=== PATIENT | female | born 1960 | race Caucasian/White ===

== ENCOUNTER 2021-03-01 00:35 | Inpatient (IN) | payer MEDICARE, SELFPAY ==
[2021-03-01] VITALS (50 sets, daily range): BP systolic 116–195; BP diastolic 64–122; PULSE 64–120; RESP 14–45; TEMP 35.6–38.2; O2SAT 80–100; BMI 33.1
--- NOTE | 2021-03-01 00:43 | PCM.HP.STD ---
HPI - General General Date of Admission: 02/28/21 HPI Narrative JOSE PANDYA, is a 60 F with a significant for diabetes mellitus who presents urgency department with a 2-week history of progressively worsening weakness. States that her symptoms is dry mouth; dry cough; and postnasal drip. Shortness of breath. She denies muscle aches. She denies fever or chills. She tested positive at [facility] ED. She was placed on nonrebreather mask at this [facility] and then transitioned to Vapoterm. At the time of history taking patient was initially on a nonrebreather mask and often difficult to answer question because reportedly she had a dry mouth. She was eventually placed on BiPAP. [facility] Medical History (Updated 03/01/21 @ 01:33 by Andrew Tinsley, RN) Anxiety Arthritis Depression Diabetes Fibromyalgia Head ache Head trauma Hypertension Kidney stones Ovarian cancer Rupture of colon Home Medications Acidophilus 1 tablet PO/SL QPM 03/01/21 [History Last Taken Unknown] Lantus U-100 Insulin 40 units OTHER QHS 03/01/21 [History Last Taken Unknown] Novolog Flexpen U-100 Insulin 40 units OTHER TID 03/01/21 [History Last Taken Unknown] [place] 3 Fish Oil 300 mg PO.IVFORM DAILY 03/01/21 [History Last Taken Unknown] lisinopril 20 mg PO/SL 03/01/21 [History Last Taken Unknown] meloxicam 7.5 mg PO/SL DAILY 03/01/21 [History Last Taken Unknown] Allergy/AdvReac Type Severity Reaction Status Date / Time fexofenadine AdvReac Vomiting Verified 03/01/21 01:12 loratadine AdvReac Rash Verified 03/01/21 01:12 prednisone AdvReac PT UNABLE Verified 03/01/21 01:12 TO RESPOND-NEEDS F/U Sulfa (Sulfonamide AdvReac NEEDS Verified 03/01/21 01:12 Antibiotics) FOLLOW-UP Family History (Updated 03/01/21 @ 00:[address] Cesar Kang MD) Other Aneurysm Kidney disease Surgical History (Updated 03/01/21 @ 01:33 by Andrew Tinsley, MINDY) H/O oophorectomy H/O oophorectomy Hx of tonsillectomy Previous back surgery Social History (Updated 03/01/21 @ 00:[address] Cesar Kang MD) Smoking Status: Never smoker ROS ROS Narrative Pertinent positives and pertinent negatives as noted in HPI. All other systems were reviewed and are negative. Vital Signs Vital Signs Vital Signs: 03/01/21 00:14 03/01/21 00:36 Temperature 99.6 F H Temperature Source Temporal Pulse Rate 110 H Respiratory Rate 26 H Respiratory Effort Short of Breath Respiratory Depth Normal Respiratory Pattern Tachypnea Blood Pressure 179/90 H Blood Pressure Mean 119 Blood Pressure Source Monitor Blood Pressure Position Semi-Fowlers Blood Pressure Location Right Forearm Pulse Ox 80 100 Oxygen Delivery Method Non-Rebreather Bi-pap Fraction of Inspired Oxygen (FIO2) 100 100 Weight Weight: 93.1 kg Body Mass Index (BMI) 33.1 Physical Exam Narrative Physical exam: General: Well-nourished, well-developed. Head: Normocephalic, atraumatic, no tenderness Eyes: PERRLA, EOMI ENT, no trauma, moist mucous membranes, no rhinorrhea Neck: Nontender, full range of motion, no spinal tenderness, deformities, step-off CVS: Tachycardia. S1-S2 present. No murmur, gallop or rub. Respiratory : Tachypnea; using accessory muscles of respiration. Bilateral rales . no wheezing Abdomen: Soft, nontender, nondistended, normal bowel sounds, no masses : Deferred Back: Nontender, no CVA tenderness, no midline spinal tenderness, deformities, step-offs Extremities: Nontender full range of motion, no trauma Skin: Normal color, no trauma, abrasions Neuro: Alert, oriented, cranial nerves II through XII grossly intact. Psychiatry: Anxious. Assessment & Plan Assessment/Plan (1) SARS (severe acute respiratory syndrome): (2) Respiratory failure: QUALIFIERS: Chronicity: acute Respiratory failure complication: hypoxia Qualified Code(s): J96.01 - Acute respiratory failure with hypoxia PLAN: Acute hypoxemic respiratory failure secondary to SARS- COV 2 Initial oxygen saturation on presentation was in the 60s. Transitioned from nonrebreather mask to BiPAP on presentation. Check blood gas. Impression of chest x-ray by radiologist at [facility]: Left greater than right parenchymal infiltrates concerning for multifocal pneumonia or asymmetric edema. Review of records show that SARS antigen Covid was positive at [facility]. Review of labs at outside hospital showed ALT 35 (normal 13-66); and AST 63 (normal 3-39). Troponin was negative x2. Received cefepime and azithromycin at outside hospital ED and this will be continued. Received Decadron at outside hospital ED initially continued. Outside window of remdesivir since symptoms is more than 10 days. Tylenol for fever Mucinex ordered Admit intensive care unit. 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 Placed on enhanced droplet isolation precaution. Diabetes mellitus Review of chart patient with hyperglycemia at outside hospital Adjust basal insulin. We will keep patient n.p.o. for now since patient is on BiPAP. Hold prandial insulin. Accu-Chek with correction scale insulin ordered. Accu-Chek QA [facility] with correction scale insulin ordered. DVT prophylaxis Subcutaneous Lovenox 30 mg twice daily. . Charges/Coding Visit Charges Inpatient E&M: 37644 Init Hosp L3
[2021-03-01 00:56] LABS: Allen Test Positive; Base Excess -2 mmol/L (-2 to +2); Bicarbonate 23.2 mmol/L (22-26); Blood Gas Specimen Type ART; FI02 100; O2 Delivery Device BiPAP; PEEP 10; PO2 133 mmHG (75-100); RR 14; SITE L Radial; SO2 99 % (95-99); Total Carbon Dioxide 24 mmol/L; Vt 450; pCO2 39.8 mmHg (35-45); pH 7.37 (7.35-7.45)
[2021-03-01] MEDS: LORazepam 2 MG/ML Syringe 1 MG IV ×2 (01:10→06:47)
[2021-03-01 03:28] LABS: Procalcitonin 0.57 ng/mL (0.00-0.09)
[2021-03-01] MEDS: Insulin Lispro 100 UNIT/ML INSULN.PEN SC ×4 (03:59→21:19)
[2021-03-01 04:12] LABS: Bedside Glucose 151 mg/dL (70-110)
[2021-03-01 04:13] LABS: Absolute Lymphocyte Count 0.81 X10^3/uL (0.83-4.51); Absolute Neutrophil Count 9.1 X10^3/uL (2.0-7.7); Basophil# 0.03 X10^3/uL; Basophil% 0.3 % (0-1); Hematocrit 37.9 % (37-47); Hemoglobin 12.5 g/dL (12.0-15.0); Lymphocyte # 0.81 X10^3/ul (0.83-4.51); Lymphocyte % 7.6 % (19-41); Mean Corpuscular Hgb 29.9 pg (27.0-32.0); Mean Corpuscular Volume 90.7 fL (81-99); Mean Platelet Vol. 8.9 fl (6.2-12.0); Monocyte# 0.55 X10^3/uL; Monocyte% 5.1 % (0-10); NRBC Flagged by Analyzer 0 % (0-5); Neutrophil # 9.12 X10^3/uL (2.7-7.7); Neutrophil % 85.1 % (47-70); Platelet Count 251 K/mm3 (150-450); RBC Distribution Width CV 13.5 % (11.6-14.6); RBC Distribution Width SD 45.2 fl (35.1-43.9); Red Blood Count 4.18 M/mm3 (4.2-5.4); White Blood Count 10.7 K/mm3 (4.4-11.0)
[2021-03-01 04:37] LABS: ALB/GLOB Ratio 0.4 RATIO (0.9-2.4); AST(SGOT) 48 U/L (15-37); Alanine Aminotransfer ALT/SGPT 30 U/L (13-56); Albumin, Serum 1.8 g/dL (3.2-5.0); Alkaline Phosphatase 201 U/L (45-117); Anion Gap 10 (5-15); BUN 13 mg/dL (7-18); BUN/Creat Ratio 23.7 RATIO (10-20); Calcium,Total 8.2 mg/dL (8.5-10.1); Chloride 100 mmol/L (98-107); Creatinine, Serum 0.55 mg/dL (0.55-1.02); EST Glomerular Filtration Rate 119 mL/min (>60); Est Glom Filt Rate - Afr Amer 144 mL/min (>60); Estimated Creatinine Clearance 100.56 ml/min; Globulin 4.3 g/dL (2.2-4.2); Glucose 230 mg/dL (74-106); Potassium 4.1 mmol/L (3.5-5.1); Protein, Total 6.1 g/dL (6.4-8.2); Sodium Level 135 mmol/L (136-145)
[2021-03-01] MEDS: hydrALAZINE 20 MG/ML Vial 10 MG IV (06:47)
--- NOTE | 2021-03-01 08:03 | CON.PCM.CC_ITS ---
Assessment & Plan Assessment/Plan (1) SARS (severe acute respiratory syndrome): (2) Respiratory failure: QUALIFIERS: Chronicity: acute Respiratory failure complication: hypoxia Qualified Code(s): J96.01 - Acute respiratory failure with hypoxia (3) COVID-19: (4) Diabetes: QUALIFIERS: Diabetes mellitus type: type 2 Diabetes mellitus chcf insulin use: with intermediate designer use Diabetes mellitus complication status: wi th circulatory complication Diabetes mellitus complication detail: with other circulatory complications Qualified Code(s): E11.59 - Type 2 diabetes mellitus with other circulatory complications; 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 Add Precedex drip 2. Continue BiPAP. Wean oxygen as tolerated 3. Monitor for hyperglycemia. Add basal insulin pending trend 4. No Remdesivir given delayed presentation 5. Potential antihypertensives if not improved with Precedex IMPRESSIONS: 1. Acute hypoxic respiratory failure secondary to COVID-19 Unvaccinated. Patient does not appear to be coherent enough to make CODE STATUS decisions. Patient will be a full code by default. Patient has been removing her BiPAP mask. Patient will be placed on a Precedex drip. Cannot exclude the need for intubation moving forward. Patient has delayed onsets, so remdesivir will not be ordered. Patient will be placed on Decadron and this may cause issues with blood sugars. Patient currently n.p.o., so we will hold on scheduled insulin until trend can be determined. Patient is on a mucolytic. 2. Diabetes mellitus Patient was significant requirements at baseline. Anticipate worsening blood sugars given need for Decadron therapy. We will continue to follow and adjust as necessary. 3. Anxiety/hypertension/obesity/poor insight Complicates care, management, recovery and prognosis. Will initiate a Precedex drip in an effort to help with anxiety. This may help with current hypertension. Cannot exclude the need for intubation if anxiety precludes use of BiPAP rescue. TIME: 33 minutes of critical care time spent addressing acute hypoxic respiratory failure, diabetes mellitus, anxiety, review of all data and collaboration with care team (7:15 AM to 8:15 AM) HPI Consult Data Date of Consult: 03/01/21 HPI Narrative HPI Narrative: JOSE PANDYA is a 60 F, with reported past medical history listed below, who presents to [facility] on 03/01/2021 from an outside facility secondary to 2 weeks of progressive weakness, dry mouth, dry cough and postnasal drip. Patient reportedly did not have any fevers, chills or muscle aches. Patient had presented to [facility] ED hypoxic and was placed on a nonrebreather. Patient was then transitioned to Vapotherm. On arrival to [facility], patient was eventually placed on BiPAP therapy. Patient has very poor insight into her or her overall condition and history is limited. Patient does state that she was not vaccinated. Patient is unclear on her onset. Overnight, patient has had significant hypertension that appears to be associated with anxiety. Patient has pulled her mask off several times leading to desaturation into the 40s. Patient is not reporting any previous respiratory issues. Patient does have diabetes and is treated with insulin therapy. Patient also has chronic pain issues. Unable to obtain a full review of systems secondary to significant anxiety. Patient is reportedly a full code, but is not answering any questions for me at this time secondary to concerns with BiPAP therapy. [facility] Medical History (Updated 03/01/21 @ 08:[address] Yash Marie MD) Anxiety Arthritis Depression Diabetes Fibromyalgia Head ache Head trauma Hypertension Kidney stones Ovarian cancer Rupture of colon Home Medications Acidophilus 1 tablet PO/SL QPM 03/01/21 [History Last Taken Unknown] Lantus U-100 Insulin 40 units OTHER QHS 03/01/21 [History Last Taken Unknown] Novolog Flexpen U-100 Insulin 40 units OTHER TID 03/01/21 [History Last Taken U nknown] [place] 3 Fish Oil 300 mg PO.IVFORM DAILY 03/01/21 [History Last Taken Unknown] lisinopril 40 mg PO DAILY 03/01/21 [History Last Taken Unknown] meloxicam 7.5 mg PO/SL DAILY 03/01/21 [History Last Taken Unknown] Allergy/AdvReac Type Severity Reaction Status Date / Time fexofenadine AdvReac Vomiting Verified 03/01/21 01:12 loratadine AdvReac Rash Verified 03/01/21 01:12 prednisone AdvReac PT UNABLE Verified 03/01/21 01:12 TO RESPOND-NEEDS F/U Sulfa (Sulfonamide AdvReac NEEDS Verified 03/01/21 01:12 Antibiotics) FOLLOW-UP Family History Other Aneurysm Kidney disease Surgical History H/O oophorectomy H/O oophorectomy Hx of tonsillectomy Previous back surgery Social History Smoking Status: Never smoker ROS Review of Systems ROS Unobtainable: due to mental status Physical Exam Const alert General Appearance: cooperative, well developed, anxious and uncooperative Nutritional Appearance: obese HEENT normocephalic, head/scalp atraumatic and moist oral mucous membranes HEENT Narrative: Scleral injection noted Eyes PERRL and EOMs intact bilaterally Neck full ROM and no lymphadenopathy Chest inspection of chest normal Chest: symmetrical chest wall rise; Negative for crepitus Resp Effort and Inspection: actively coughing and prolonged expiratory phase Auscultation: diminished lung sounds; Negative for rales, rhonchi or wheezes Percussion: Negative for dullness Cardio regular rhythm, S1 normal heart sound, S2 normal heart sound, no murmurs, no rub and no gallops GI normal to inspection, nondistended, normoactive bowel sounds no CVA tenderness Extremity no clubbing, cyanosis or edema Skin no rashes or lesions noted Neuro oriented x3, CN's II-XII intact bilaterally, moves all extremities and no focal motor deficits Psych Attitude: paranoid and evasive Speech: pressured Mood & Affect: anxious Thought Process: disorganized Thought Content: No suicidality Attention / Concentration: concentration grossly impaired Lab / Micro Data Result Diagrams: 03/01/21 03:55 03/01/21 03:55 Labs: Laboratory Results - last 24 hr 03/01/21 02:30: Procalcitonin 0.57 H 03/01/21 03:42: POC Glucose 151 H 03/01/21 03:55: WBC 10.7, RBC 4.18 L, Hgb 12.5, Hct 37.9, MCV 90.7, MCH 29.9, MCHC 33.0, RDW Std Deviation 45.2 H, RDW Coeff of Curt 13.5, Plt Count 251, MPV 8.9, Immature Gran % (Auto) 1.900 H, Neut % (Auto) 85.1 H, Lymph % (Auto) 7.6 L, [place] % (Auto) 5.1, Eos % (Auto) 0.0, Baso % (Auto) 0.3, Absolute Neuts (auto) 9.1 H, Absolute Lymphs (auto) 0.81 L, Nucleated RBC % 0 03/01/21 03:55: Sodium 135 L, Potassium 4.1, Chloride 100, Carbon Dioxide 25.0, Anion Gap 10, BUN 13, Creatinine 0.55, Estim Creat Clear Calc 100.56, Est GFR (MDRD) Af Amer 144, Est GFR (MDRD) Non-Af 119, BUN/Creatinine Ratio 23.7 H, Glucose 230 H, Calcium 8.2 L, Total Bilirubin 0.70, AST 48 H, ALT 30, Alkaline Phosphatase 201 H, Total Protein 6.1 L, Albumin 1.8 L, Globulin 4.3 H, Albumin/Globulin Ratio 0.4 L Micro: Microbiology 03/01/21 03:50 Urine, Clean Catch Streptococcus pneumoniae Antigen (M - Final 03/01/21 03:50 Urine, Clean Catch Legionella Antigen - Final ABG Data ABG results: ABG 03/01/21 00:50 Specimen Type ART Sample Site L Radial pH 7.37 Bicarbonate Actual 23.2 Total CO2 24 Base Excess -2 O2 Saturation 99 O2 % 100 ABG pCO2 39.8 ABG pO2 133 H Damion Test Positive Respiration Rate 14 O2 Delivery Device BiPAP Tidal Volume 450 POC PEEP 10 Capacity Capacity Assessment Tool Can the patient make a choice & communicate that choice?: No Can the patient understand benefits, risks and alternatives?: No Can the patient make a logical, rational choice?: No Is the choice the patient makes consistent w/ their values?: Unable to Determine (Cannot determine baseline values at this time) Is there an impending, emergent risk to the patient?: Yes Does the patient have an Advance Directive?: No Is there a Surrogate Available?: No i.e. HCPOA: No i.e. close relative (spouse, child, parent, sibling)?: Unable to Determine Charges/Coding Procedures Hospitalists Procedures: [facility]
--- NOTE | 2021-03-01 08:14 | PCS.PANDOC ---
PANDEMIC DOCUMENTATION INITIATED: Date: 02/08/2021 Time: 190
[2021-03-01] MEDS: Meloxicam 7.5 MG Tablet PO (09:44)
[2021-03-01] MEDS: guaiFENesin 1,200 MG Tablet 1200 MG PO (09:44)
[2021-03-01] MEDS: dexAMETHasone 10 MG/ML Vial 6 MG IV (09:49)
[2021-03-01] MEDS: Enoxaparin 30 MG/0.3 ML Syringe SC ×2 (09:51→21:19)
[2021-03-01 10:01] LABS: Bedside Glucose 196 mg/dL (70-110)
--- NOTE | 2021-03-01 11:57 | PN.HOSP_ITS ---
Subjective Subjective Patient was in generally morning today. Very short of breath, trying to remove BiPAP mask and gets very hypoxic. On Precedex drip. Maintaining her blood pressure. Objective Data Objective Data Vital Signs: Vital Signs Temp Pulse Resp BP Pulse Ox 100.1 F H 81 41 H 118/66 90 03/01/21 10:00 03/01/21 11:49 03/01/21 11:06 03/01/21 11:00 03/01/21 11:06 Oxygen Delivery Method Bi-pap Weight: 205 lb 4.006 oz Body Mass Index (BMI) 33.1 Intake & Output: Intake and Output for Last 24 Hours 02/27/21 02/28/21 03/01/21 23:59 23:59 23:59 Intake Total 482.84 / 482.84 Output Total 50 / 50 Balance 432.84 / 432.84 Lab / Micro Data Result Diagrams: 03/01/21 03:55 03/01/21 03:55 Labs: Laboratory Results - last 24 hr 03/01/21 02:30: Procalcitonin 0.57 H 03/01/21 03:42: POC Glucose 151 H 03/01/21 03:55: WBC 10.7, RBC 4.18 L, Hgb 12.5, Hct 37.9, MCV 90.7, MCH 29.9, MCHC 33.0, RDW Std Deviation 45.2 H, RDW Coeff of Curt 13.5, Plt Count 251, MPV 8.9, Immature Gran % (Auto) 1.900 H, Neut % (Auto) 85.1 H, Lymph % (Auto) 7.6 L, [place] % (Auto) 5.1, Eos % (Auto) 0.0, Baso % (Auto) 0.3, Absolute Neuts (auto) 9.1 H, Absolute Lymphs (auto) 0.81 L, Nucleated RBC % 0 03/01/21 03:55: Sodium 135 L, Potassium 4.1, Chloride 100, Carbon Dioxide 25.0, Anion Gap 10, BUN 13, Creatinine 0.55, Estim Creat Clear Calc 100.56, Est GFR (MDRD) Af Amer 144, Est GFR (MDRD) Non-Af 119, BUN/Creatinine Ratio 23.7 H, G lucose 230 H, Calcium 8.2 L, Total Bilirubin 0.70, AST 48 H, ALT 30, Alkaline Phosphatase 201 H, Total Protein 6.1 L, Albumin 1.8 L, Globulin 4.3 H, Albumin/Globulin Ratio 0.4 L 03/01/21 09:44: POC Glucose 196 H Micro: Microbiology 03/01/21 03:50 Urine, Clean Catch Streptococcus pneumoniae Antigen (M - Final 03/01/21 03:50 Urine, Clean Catch Legionella Antigen - Final ABG Data ABG results: ABG 03/01/21 00:50 Specimen Type ART Sample Site L Radial pH 7.37 Bicarbonate Actual 23.2 Total CO2 24 Base Excess -2 O2 Saturation 99 O2 % 100 ABG pCO2 39.8 ABG pO2 133 H [place]ion Test Positive Respiration Rate 14 O2 Delivery Device BiPAP Tidal Volume 450 POC PEEP 10 Physical Exam Narrative Fever 100.1 Fahrenheit General: , On BiPAP. HEENT: Atraumatic, PERRLA, EOMI, Normocephalic Oral: No Gingival or Mucosal Lesions/ Ulcerations Neck: Supple, No JVD, Negative Carotid Bruits Lungs: Air entry diminished in bilateral lung bases. Tachypneic and severely hypoxic. Bilateral coarse crepitation Cardiovascular: Sinus tachycardia, Normal S1, Normal S2, No murmurs Abdomen: Bowel Sounds Present, Soft, Non Tender, Non-Distended : No renal angle tenderness. No suprapubic tenderness. Extremities: No edema, Capillary Refill Less than 3 Seconds Skin: No rashes, No breakdown Musculoskeletal: No Tenderness to Palpation of Joints or Extremities Neurological: Cranial nerves II-XII grossly intact, DTR 2+/4 and Symmetrical, Neuro grossly intact Psych/Mental Status: Lethargic. Assessment & Plan Assessment/Plan (1) Respiratory failure: QUALIFIERS: Chronicity: acute Respiratory failure complication: hypoxia Qualified Code(s): J96.01 - Acute respiratory failure with hypoxia (2) COVID-19: PLAN: This 60-year-old female with multiple comorbidities admitted with 2- week history of progressive worsening of weakness, shortness of breath, dry cough, postnasal drip. She was found severely hypoxic and tachypneic, in acute hypoxic respiratory failure and was directly admitted from [facility] nonrebreather mask 1. Acute hypoxemic respiratory failure secondary to bilateral COVID-19 pneumonia: The patient is unvaccinated. Patient is admitted in ICU. 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 Currently on BiPAP. On Precedex drip as patient was trying to remove BiPAP mask. On Decadron. Not candidate for remdesivir as out of window. Supportive treatment with mucolytic, Pep and bronchodilator. ID consult tomorrow. 2. Bilateral COVID-19 pneumonia: As mentioned above 3. Diabetes mellitus: Accu-Cheks insulin coverage block sliding scale. On basal insulin. 4. DVT prophylaxis Subcutaneous Lovenox 30 mg twice daily.
[2021-03-01 15:51] LABS: Bedside Glucose 261 mg/dL (70-110)
[2021-03-01] MEDS: 0.9% Saline Lock 10 ML Syringe IV (16:05)
--- NOTE | 2021-03-01 20:34 | NURSING ---
Fio2 increased to 55% due to apo2 of 86%
[2021-03-01 21:41] LABS: Bedside Glucose 265 mg/dL (70-110)
[2021-03-02] VITALS (39 sets, daily range): BP systolic 118–179; BP diastolic 55–94; PULSE 59–105; RESP 14–38; TEMP 35.8–36.8; O2SAT 76–98
[2021-03-02] MEDS: Insulin Lispro 100 UNIT/ML INSULN.PEN SC ×4 (03:59→23:21)
[2021-03-02 04:16] LABS: Bedside Glucose 286 mg/dL (70-110)
[2021-03-02 04:23] LABS: Absolute Lymphocyte Count 0.92 X10^3/uL (0.83-4.51); Absolute Neutrophil Count 10.4 X10^3/uL (2.0-7.7); Basophil# 0.04 X10^3/uL; Basophil% 0.3 % (0-1); Hematocrit 39.6 % (37-47); Hemoglobin 13.2 g/dL (12.0-15.0); Lymphocyte # 0.92 X10^3/ul (0.83-4.51); Lymphocyte % 7.6 % (19-41); Mean Corp Hgb Conc 33.3 g/dL (32-36); Mean Corpuscular Hgb 29.8 pg (27.0-32.0); Mean Corpuscular Volume 89.4 fL (81-99); Mean Platelet Vol. 9.2 fl (6.2-12.0); Monocyte# 0.56 X10^3/uL; Monocyte% 4.7 % (0-10); NRBC Flagged by Analyzer 0 % (0-5); Neutrophil # 10.36 X10^3/uL (2.7-7.7); Neutrophil % 86.1 % (47-70); Platelet Count 221 K/mm3 (150-450); RBC Distribution Width CV 13.8 % (11.6-14.6); RBC Distribution Width SD 45.1 fl (35.1-43.9); Red Blood Count 4.43 M/mm3 (4.2-5.4)
[2021-03-02 04:33] LABS: Anion Gap 8 (5-15); BUN 23 mg/dL (7-18); BUN/Creat Ratio 42.9 RATIO (10-20); Calcium,Total 8.8 mg/dL (8.5-10.1); Chloride 106 mmol/L (98-107); Creatinine, Serum 0.54 mg/dL (0.55-1.02); EST Glomerular Filtration Rate 123 mL/min (>60); Est Glom Filt Rate - Afr Amer 148 mL/min (>60); Estimated Creatinine Clearance 102.42 ml/min; Glucose 283 mg/dL (74-106); Magnesium 2.4 mg/dL (1.6-2.6); Phosphorus 2.9 mg/dL (2.5-4.9); Potassium 4.6 mmol/L (3.5-5.1); Sodium Level 138 mmol/L (136-145)
--- NOTE | 2021-03-02 06:45 | PN.CC_ITS ---
Assessment & Plan Assessment/Plan (1) COVID-19: PLAN: RECOMMENDATIONS: 1. Continue BiPAP support and wean FiO2 to maintain saturations at or above 90%. 2. Continue Decadron to complete 10-day treatment course. 3. Continue Lovenox twice daily. 4. Antibiotics can likely be discontinued in the next 24 hours. 5. Recommend use of periodic diuretic therapy to maintain euvolemic state, as t olerated by hemodynamics and renal function. IMPRESSIONS: 1. Acute hypoxemic respiratory failure secondary to COVID-19 pneumonia The patient has an unvaccinated status. Given her delayed presentation, she was not felt to be a candidate for remdesivir. Plan to continue current supportive measures including noninvasive positive pressure ventilatory support. Wean FiO2 as tolerated to maintain saturations at or above 90%. Precedex infusion will be continued to facilitate adherence with BiPAP support. The patient is to remain n.p.o. for now. Plan to continue Decadron to complete 10-day treatment course. Antibiotics can likely be discontinued in the next 24 hours. Continue Lovenox twice daily as ordered. Recommend periodic use of IV Lasix to maintain euvolemic state as tolerated by hemodynamics and renal function. 2. Diabetes mellitus Continue Lantus and sliding scale insulin coverage. 3. Anxiety/hypertension/obesity Complicates care, management, recovery and prognosis. Continue supportive measures as noted above. TIME: 33 minutes of critical care time, independent of procedures, was spent addressing the patient's acute hypoxemic respiratory failure secondary to COVID- 19 pneumonia, review of all data and collaboration with the care team. ([id number]) Subjective Subjective The patient was seen and examined at the bedside this morning. Events from the last 24 hours have been reviewed. The patient is currently afebrile, hemodynamically stable and maintaining appropriate oxygen saturations on AVAPS with an FiO2 requirement of 65%. The patient remains on low-dose Precedex at 0.3 to maintain compliance with the use of noninvasive positive pressure ventilatory support. She is currently documented to be overall net +1 L for the hospital admission. The patient remains on antimicrobials, Decadron and twice daily Lovenox. The patient has been on continuous noninvasive positive pressure ventilatory support following her admission to the hospital. She did not receive remdesivir given her delayed presentation. Objective Data Objective Data The patient's most recent lab work, culture data and imaging studies have all been personally reviewed. Strep and urine Legionella antigens were negative. Vital Signs: Vital Signs Temp Pulse Resp BP Pulse Ox 96.7 F L 74 22 H 163/87 H 93 03/02/21 04:00 03/02/21 06:00 03/02/21 06:00 03/02/21 06:00 03/02/21 05:00 Oxygen Delivery Method Bi-pap Weight: 92.6 kg Body Mass Index (BMI) 33.1 Intake & Output: Intake and Output for Last 24 Hours 02/28/21 03/01/21 03/02/21 23:59 23:59 23:59 Intake Total 1012.32 / 1019.32 243.00 / 243.00 Output Total 200 / 200 Balance 812.32 / 819.32 243.00 / 243.00 Lab / Micro Data Attestation: I reviewed the patient's lab results. Result Diagrams: 03/03/21 04:00 03/03/21 05:00 Labs: Laboratory Results - last 24 hr 03/01/21 09:44: POC Glucose 196 H 03/01/21 15:43: POC Glucose 261 H 03/01/21 21:17: POC Glucose 265 H 03/02/21 03:45: POC Glucose 286 H 03/02/21 04:10: WBC 12.0 H, RBC 4.43, Hgb 13.2, Hct 39.6, MCV 89.4, MCH 29.8, MCHC 33.3, RDW Std Deviation 45.1 H, RDW Coeff of Curt 13.8, Plt Count 221, MPV 9.2, Immature Gran % (Auto) 1.300 H, Neut % (Auto) 86.1 H, Lymph % (Auto) 7.6 L, [place] % (Auto) 4.7, Eos % (Auto) 0.0, Baso % (Auto) 0.3, Absolute Neuts (auto) 10.4 H, Absolute Lymphs (auto) 0.92, Nucleated RBC % 0 03/02/21 04:10: Sodium 138, Potassium 4.6, Chloride 106, Carbon Dioxide 24.0, Anion Gap 8, BUN 23 H, Creatinine 0.54 L, Estim Creat Clear Calc 102.42, Est GFR (MDRD) Af Amer 148, Est GFR (MDRD) Non-Af 123, BUN/Creatinine Ratio 42.9 H, Glucose 283 H, Calcium 8.8, Phosphorus 2.9, Magnesium 2.4 Micro: Microbiology 03/01/21 03:50 Urine, Clean Catch Streptococcus pneumoniae Antigen (M - Final 03/01/21 03:50 Urine, Clean Catch Legionella Antigen - Final Physical Exam Const alert General Appearance: cooperative, comfortable and on BiPAP Nutritional Appearance: obese HEENT normocephalic and head/scalp atraumatic Eyes PERRL, EOMs intact bilaterally and conjunctivae normal Neck supple General: trachea midline Chest inspection of chest normal Resp Effort and Inspection: tachypneic Auscultation: diminished lung sounds; Negative for rales, rhonchi or wheezes Cardio regular rate and regular rhythm GI normal to inspection, nondistended, normoactive bowel sounds Extremity no clubbing, cyanosis or edema Skin no rashes or lesions noted Neuro no focal motor deficits Psych Mood & Affect: anxious Charges/Coding Procedures Hospitalists Procedures: 20212 Critial Care 1st Hr
[2021-03-02] MEDS: Enoxaparin 30 MG/0.3 ML Syringe SC ×2 (08:04→21:47)
[2021-03-02] MEDS: dexAMETHasone 10 MG/ML Vial 6 MG IV (08:04)
[2021-03-02] MEDS: guaiFENesin 1,200 MG Tablet 1200 MG PO ×2 (08:05→21:47)
[2021-03-02] MEDS: Meloxicam 7.5 MG Tablet PO (08:05)
--- NOTE | 2021-03-02 11:23 | PCM.PN.HOSP ---
Subjective Subjective Patient on BiPAP 50% FiO2 maintaining. Heart rate in high 50s to 60s per night. BP is elevated. Fever 100.1 Fahrenheit Objective Data Objective Data Vital Signs: Vital Signs Temp Pulse Resp BP Pulse Ox 97.0 F L 64 25 H 163/84 H 91 03/02/21 08:00 03/02/21 10:00 03/02/21 10:00 03/02/21 10:00 03/02/21 10:00 Oxygen Delivery Method Bi-pap Weight: 204 lb 2.369 oz Body Mass Index (BMI) 33.1 Intake & Output: Intake and Output for Last 24 Hours 02/28/21 03/01/21 03/02/21 23:59 23:59 23:59 Intake Total 1012.32 / 1019.32 378.00 / 378.00 Output Total 200 / 200 100 / 100 Balance 812.32 / 819.32 278.00 / 278.00 Lab / Micro Data Result Diagrams: 03/02/21 04:10 03/02/21 04:10 Labs: Laboratory Results - last 24 hr 03/01/21 15:43: POC Glucose 261 H 03/01/21 21:17: POC Glucose 265 H 03/02/21 03:45: POC Glucose 286 H 03/02/21 04:10: WBC 12.0 H, RBC 4.43, Hgb 13.2, Hct 39.6, MCV 89.4, MCH 29.8, MCHC 33.3, RDW Std Deviation 45.1 H, RDW Coeff of Curt 13.8, Plt Count 221, MPV 9.2, Immature Gran % (Auto) 1.300 H, Neut % (Auto) 86.1 H, Lymph % (Auto) 7.6 L, [place] % (Auto) 4.7, Eos % (Auto) 0.0, Baso % (Auto) 0.3, Absolute Neuts (auto) 10.4 H, Absolute Lymphs (auto) 0.92, Nucleated RBC % 0 03/02/21 04:10: Sodium 138, Potassium 4.6, Chloride 106, Carbon Dioxide 24.0, Anion Gap 8, BUN 23 H, Creatinine 0.54 L, Estim Creat Clear Calc 102.42, Est GFR (MDRD) Af Amer 148, Est GFR (MDRD) Non-Af 123, BUN/Creatinine Ratio 42.9 H, Glucose 283 H, Calcium 8.8, Phosphorus 2.9, Magnesium 2.4 Micro: Microbiology 03/01/21 03:50 Urine, Clean Catch Streptococcus pneumoniae Antigen (M - Final 03/01/21 03:50 Urine, Clean Catch Legionella Antigen - Final Physical Exam Narrative General: , On BiPAP. HEENT: Atraumatic, PERRLA, EOMI, Normocephalic Oral: No Gingival or Mucosal Lesions/ Ulcerations Neck: Supple, No JVD, Negative Carotid Bruits Lungs: Air entry diminished in bilateral lung bases. Tachypneic and severely hypoxic. Bilateral coarse crepitation Cardiovascular: Sinus tachycardia, Normal S1, Normal S2, No murmurs Abdomen: Bowel Sounds Present, Soft, Non Tender, Non-Distended : No renal angle tenderness. No suprapubic tenderness. Extremities: No edema, Capillary Refill Less than 3 Seconds Skin: No rashes, No breakdown Musculoskeletal: No Tenderness to Palpation of Joints or Extremities Neurological: Cranial nerves II-XII grossly intact, DTR 2+/4 and Symmetrical, Neuro grossly intact Psych/Mental Status: Lethargic. Assessment & Plan Assessment/Plan (1) Respiratory failure: QUALIFIERS: Chronicity: acute Respiratory failure complication: hypoxia Qualified Code(s): J96.01 - Acute respiratory failure with hypoxia (2) COVID-19: PLAN: This 60-year-old female with multiple comorbidities admitted with 2-week history of progressive worsening of weakness, shortness of breath, dry cough, postnasal drip. She was found severely hypoxic and tachypneic, in acute hypoxic respiratory failure and was directly admitted from [facility] nonrebreather mask 1. Acute hypoxemic respiratory failure secondary to bilateral COVID-19 pneumonia: The patient is unvaccinated. Patient is admitted in ICU. Seen by reconnaissance crewmember. Currently on BiPAP. On Precedex drip as patient was trying to remove BiPAP mask. On Decadron. Not candidate for remdesivir as out of window. Supportive treatment with mucolytic, Pep and bronchodilator. 03/02: Continue BiPAP/AVAPS support. On Precedex drip. 2. Bilateral COVID-19 pneumonia: As mentioned above 3. Diabetes mellitus: Accu-Cheks insulin coverage block sliding scale. On basal insulin. 03/02: Blood sugar is elevated between 265-308. Insulin dose titrated up 4. DVT prophylaxis Subcutaneous Lovenox 30 mg twice daily. Charges/Coding Visit Charges Inpatient E&M: 80233 Subs Hosp L3
[2021-03-02 12:16] LABS: Bedside Glucose 308 mg/dL (70-110)
--- NOTE | 2021-03-02 13:57 | CASEMGMT ---
Patient is currently on Bipap continuously. RN CM assessment deferred at this time. CM will attempt to complete assessment when patient is able to participate.
[2021-03-02] MEDS: Metoprolol(XL)Succ 25 MG Tablet PO (15:11)
[2021-03-02 15:36] LABS: Bedside Glucose 305 mg/dL (70-110)
[2021-03-02 17:15] LABS: Bedside Glucose 316 mg/dL (70-110)
[2021-03-02] MEDS: Acetaminophen 325 MG Tablet 650 MG PO ×2 (17:30→23:31)
[2021-03-02] MEDS: 0.9% Saline Lock 10 ML Syringe IV (21:48)
[2021-03-02] MEDS: hydrALAZINE 20 MG/ML Vial 10 MG IV (23:34)
[2021-03-02 23:51] LABS: Bedside Glucose 281 mg/dL (70-110)
[2021-03-03] VITALS (95 sets, daily range): BP systolic 55–234; BP diastolic 37–160; PULSE 70–217; RESP 12–35; TEMP 36.2–37.9; O2SAT 72–155
[2021-03-03] MEDS: hydrALAZINE 20 MG/ML Vial 10 MG IV (04:07)
[2021-03-03] MEDS: 0.9% Saline Lock 10 ML Syringe IV ×3 (04:08→07:46)
[2021-03-03] MEDS: Adenosine 6 MG/2 ML Syringe IV ×2 (04:23→09:15)
[2021-03-03 04:24] LABS: Absolute Neutrophil Count 19.9 X10^3/uL (2.0-7.7); Basophil# 0.06 X10^3/uL; Basophil% 0.3 % (0-1); Hematocrit 42.7 % (37-47); Hemoglobin 14.1 g/dL (12.0-15.0); Lymphocyte % 4.1 % (19-41); Mean Corpuscular Hgb 29.8 pg (27.0-32.0); Mean Corpuscular Volume 90.3 fL (81-99); Mean Platelet Vol. 9.9 fl (6.2-12.0); Monocyte# 0.75 X10^3/uL; Monocyte% 3.4 % (0-10); NRBC Flagged by Analyzer 0 % (0-5); Neutrophil # 19.92 X10^3/uL (2.7-7.7); Neutrophil % 90.5 % (47-70); Platelet Count 277 K/mm3 (150-450); RBC Distribution Width CV 13.9 % (11.6-14.6); Red Blood Count 4.73 M/mm3 (4.2-5.4)
--- NOTE | 2021-03-03 04:27 | EKG12_ITS ---
Test Reason : Blood Pressure : / mmHG Vent. Rate : 203 BPM Atrial Rate : 132 BPM P-R Int : 000 ms QRS Dur : 072 ms QT Int : 218 ms P-R-T Axes : 000 037 120 degrees QTc Int : 400 ms Supraventricular tachycardia with premature ectopic complex Abnormal ECG Confirmed by EFRA DUARTE, RINA ([id number]), editor newspaper DAVID FARRELL ([id number]) on 03/04/2021 9:46:08 AM Referred By: Confirmed By:RINA KRAUS MD
[2021-03-03] MEDS: Adenosine 6 MG/2 ML Syringe 12 MG IV ×3 (04:28→09:22)
[2021-03-03] MEDS: Metoprolol(XL)Succ 25 MG Tablet PO (04:30)
--- NOTE | 2021-03-03 04:31 | EKG12_ITS ---
Test Reason : RHYTHM CHANGE Blood Pressure : / mmHG Vent. Rate : 120 BPM Atrial Rate : 120 BPM P-R Int : 112 ms QRS Dur : 078 ms QT Int : 300 ms P-R-T Axes : 069 029 080 degrees QTc Int : 424 ms Sinus tachycardia Nonspecific ST and T wave abnormality Abnormal ECG Confirmed by EFRA DUARTE, RINA ([id number]), industrial editor DAVID FARRELL ([id number]) on 03/04/2021 9:45:47 AM Referred By: ROB Confirmed By:RINA KRAUS MD
--- NOTE | 2021-03-03 04:32 | EKG12_ITS ---
Test Reason : RHYTHM CHANGE Blood Pressure : / mmHG Vent. Rate : 208 BPM Atrial Rate : 258 BPM P-R Int : 000 ms QRS Dur : 078 ms QT Int : 216 ms P-R-T Axes : 000 028 124 degrees QTc Int : 402 ms Supraventricular tachycardia Nonspecific ST and T wave abnormality Abnormal ECG Confirmed by EFRA DUARTE, RINA ([id number]), greeting card editor DAVID FARRELL ([id number]) on 03/04/2021 9:45:58 AM Referred By: ROB Confirmed By:RINA KRAUS MD
--- NOTE | 2021-03-03 04:34 | EKG12_ITS ---
Test Reason : RHYTHM CHANGE Blood Pressure : / mmHG Vent. Rate : 129 BPM Atrial Rate : 129 BPM P-R Int : 100 ms QRS Dur : 072 ms QT Int : 290 ms P-R-T Axes : 067 034 088 degrees QTc Int : 424 ms Sinus tachycardia with short AK Nonspecific ST and T wave abnormality Abnormal ECG Confirmed by EFRA DUARTE, RINA ([id number]), editor in chief DAVID FARRELL ([id number]) on 03/04/2021 9:45:35 AM Referred By: ROB Confirmed By:RINA KRAUS MD
[2021-03-03 05:41] LABS: Anion Gap 9 (5-15); BUN 35 mg/dL (7-18); BUN/Creat Ratio 57.1 RATIO (10-20); Chloride 107 mmol/L (98-107); Creatinine, Serum 0.61 mg/dL (0.55-1.02); EST Glomerular Filtration Rate 105 mL/min (>60); Est Glom Filt Rate - Afr Amer 127 mL/min (>60); Estimated Creatinine Clearance 90.66 ml/min; Glucose 298 mg/dL (74-106); Potassium 4.5 mmol/L (3.5-5.1); Sodium Level 137 mmol/L (136-145)
[2021-03-03] MEDS: Insulin Lispro 100 UNIT/ML INSULN.PEN SC ×3 (05:52→18:38)
--- NOTE | 2021-03-03 05:55 | RAD_ITS ---
We are attempting to reach an attending provider to discuss findings. An addendum with communication details will be sent when the communication is complete. STUDY: X-RAY CHEST REASON FOR EXAM: Female, 60 years old. New crepitus TECHNIQUE: Portable, upright, AP chest radiograph COMPARISON: None. FINDINGS: Partially visualized thoracolumbar instrumented fusion. Bilateral mid to lower lung infiltrative and patchy opacities. There is no demonstrated pleural abnormality. Normal size heart. Pneumomediastinum. Normal visualized pulmonary arteries. Normal visualized aortic arch and descending thoracic aorta. Normal visualized thoracic spine. Normal visualized ribs, clavicles, and shoulders. Substantial bilateral chest wall soft tissue gas with extension the neck. There is no demonstrated abnormality of the visualized soft tissue structures of the upper abdomen. RAD/Chest 1 View (Portable) IMPRESSION: Pneumomediastinum. Bilateral pneumonia. Substantial bilateral chest wall emphysema with extension into the neck. Electronically Signed: Ezequiel Russ MD at 7:04 EDT Tel , Service support ,
--- NOTE | 2021-03-03 06:23 | PCM.PN.INT ---
Assessment & Plan Assessment/Plan (1) COVID-19: PLAN: RECOMMENDATIONS: 1. Proceed with intubation. Obtain arterial blood gas in [address] PICC line and continue antimicrobials. 3. Obtain sputum and send for culture. 4. Continue Decadron to complete 10-day treatment course. 5. Continue Lovenox twice daily. 6. Wean FiO2 to maintain oxygen saturations at or above 90%. 7. Start Cardizem and scheduled metoprolol, given SVT. 8. Trend troponins and check BNP. 9. Start Nimbex to prevent coughing and facilitate ventilator synchrony, especially in light of pneumomediastinum. 10. Start appropriate GI prophylaxis. IMPRESSIONS: 1. Acute hypoxemic respiratory failure secondary to COVID-19 pneumonia The patient has an unvaccinated status. Given her delayed presentation, she was not felt to be a candidate for remdesivir. Over the course of her early hospitalization, attempts to stabilize the patient on noninvasive positive pressure ventilatory support proved unsuccessful. The patient eventually required intubation on the morning of March 03. Plan to continue her on assist control mode of mechanical ventilation and wean FiO2 and PEEP to maintain oxygen saturations at or above 90%. The patient will be sedated on propofol and fentanyl. Nimbex will be utilized to minimize coughing and fluctuations in airway pressure, especially in light of the patient's pneumomediastinum. 2. Pneumomediastinum We will attempt to limit airway pressures as tolerated. Continue supportive measures. Obtain repeat chest x-ray with any clinical decompensation. 3. 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 The patient will be started on Cardizem and scheduled beta-omar. Amiodarone can be utilized if the aforementioned fails to control the patient's heart rate. 4. Diabetes mellitus Continue Lantus and sliding scale insulin coverage. 5. Anxiety/hypertension/obesity Complicates care, management, recovery and prognosis. Continue supportive measures as noted above. TIME: 80 minutes of critical care time, inclusive of procedures, was spent addressing the patient's acute hypoxemic respiratory failure secondary to COVID-19 pneumonia, pneumomediastinum, supraventricular tachycardia, review of all data and collaboration with the care team. ([id number]) Subjective Subjective The patient was seen and examined at the bedside this morning. Events from the last 24 hours have been reviewed. The patient is currently afebrile and hemodynamically stable. Early this morning, the patient developed SVT, which failed to respond to adenosine x3. The patient eventually converted without intervention. The patient is currently being maintained on Airvo heated high flow with an FiO2 requirement of 92% and flow rate of 60 L/min. She is currently documented to be overall net +1.4 L for the hospital admission. She was weaned off of Precedex completely yesterday. White count is elevated this morning to 22,000. The patient remains on cefepime, azithromycin and Decadron. Chest x-ray obtained this morning, on my review, revealed bilateral airspace disease along with evidence of pneumomediastinum. I did not appreciate any evidence of a pneumothorax. The patient appears quite ill this morning with increased work of breathing and shortness of breath. She does continue to have a nonproductive cough as well. Over the course of the morning hours, the patient continued to decompensate clinically, despite the initiation of noninvasive positive pressure ventilatory support. She continued to go in and out of SVT. She would respond transiently to adenosine. Given her clinical instability, the decision was made to proceed with intubation. Post intubation, the patient remained hemodynamically stable and SVT. Therefore, Cardizem was initiated. Intubation Indication: Respiratory failure Consent was obtained from: Patient The patient was placed in the appropriate sniffing position. Preoxygenated sedation via BiPAP was provided for a minimum of 3 minutes. The patient had continuous cardiac as well as pulse oximetry monitoring during the procedure. Procedure sedation was provided by the administration of 4 mg of Versed, 20 mg of etomidate and 100 mg of succinylcholine. Direct laryngoscopy was then performed using a number 3 MAC blade, which revealed a grade 1 view. A 7.5 mm endotracheal tube was visualized advancing between the cords to the level of 22 cm at the lip. The stylette was then removed and discarded. Tube placement was confirmed by fogging in the tube along with equal and bilateral breath sounds. Colorimetric change was visualized on the CO2 meter. The cuff was then inflated and the tube secured using a commercially available device. A good pulse oximetry waveform was seen on the monitor throughout the procedure. A portable chest x-ray has been ordered to confirm appropriate placement. The patient tolerated the procedure well. Objective Data Objective Data The patient's most recent lab work, culture data and imaging studies have all been personally reviewed. Strep and urine Legionella antigens were negative. Vital Signs: Vital Signs Temp Pulse Resp BP Pulse Ox 97.1 F L 208 H 24 H 126/84 H 94 03/03/21 00:00 03/03/21 04:45 03/03/21 04:45 03/03/21 04:30 03/03/21 04:45 Oxygen Flow Rate (L/min) 15 Oxygen Delivery Method Bi-pap Weight: 94.6 kg Body Mass Index (BMI) 33.1 Intake & Output: Intake and Output for Last 24 Hours 03/01/21 03/02/21 03/03/21 23:59 23:59 23:59 Intake Total 1012.32 / 1019.32 924.15 / 984.15 160 / 160 Output Total 200 / 200 175 / 450 275 / 275 Balance 812.32 / 819.32 749.15 / 534.15 -115 / -115 Lab / Micro Data Attestation: I reviewed the patient's lab results. Result Diagrams: 03/04/21 04:50 03/04/21 04:50 Labs: Laboratory Results - last 24 hr 03/02/21 11:44: POC Glucose 308 H 03/02/21 15:08: POC Glucose 305 H 03/02/21 17:03: POC Glucose 316 H 03/02/21 23:18: POC Glucose 281 H 03/03/21 04:00: WBC 22.0 H, RBC 4.73, Hgb 14.1, Hct 42.7, MCV 90.3, MCH 29.8, MCHC 33.0, RDW Std Deviation 46.0 H, RDW Coeff of Curt 13.9, Plt Count 277, MPV 9.9, Immature Gran % (Auto) 1.700 H, Neut % (Auto) 90.5 H, Lymph % (Auto) 4.1 L, [place] % (Auto) 3.4, Eos % (Auto) 0.0, Baso % (Auto) 0.3, Absolute Neuts (auto) 19.9 H, Absolute Lymphs (auto) 0.90, Nucleated RBC % 0 03/03/21 04:00: Sodium Cancelled, Potassium Cancelled, Chloride Cancelled, Carbon Dioxide Cancelled, Anion Gap Cancelled, BUN Cancelled, Creatinine Cancelled, Estim Creat Clear Calc Cancelled, Est GFR (MDRD) Af Amer Cancelled, Est GFR (MDRD) Non-Af Cancelled, BUN/Creatinine Ratio Cancelled, Glucose Cancelled, Calcium Cancelled 03/03/21 05:00: Sodium 137, Potassium 4.5, Chloride 107, Carbon Dioxide 21.0, Anion Gap 9, BUN 35 H, Creatinine 0.61, Estim Creat Clear Calc 90.66, Est GFR (MDRD) Af Amer 127, Est GFR (MDRD) Non-Af 105, BUN/Creatinine Ratio 57.1 H, Glucose 298 H, Calcium 9.0 Micro: Microbiology 03/01/21 03:50 Urine, Clean Catch Streptococcus pneumoniae Antigen (M - Final 03/01/21 03:50 Urine, Clean Catch Legionella Antigen - Final Physical Exam Const alert General Appearance: cooperative, comfortable, in distress Positive for moderate and ill appearing Nutritional Appearance: obese HEENT normocephalic and head/scalp atraumatic Eyes PERRL, EOMs intact bilaterally and conjunctivae normal Neck supple General: trachea midline Chest inspection of chest normal Resp Effort and Inspection: tachypneic and actively coughing Auscultation: diminished lung sounds; Negative for rales, rhonchi or wheezes Cardio S1 normal heart sound and S2 normal heart sound Rate: tachycardic Heart Sounds: Negative for murmur GI normal to inspection, nondistended, normoactive bowel sounds Extremity no clubbing, cyanosis or edema Skin no rashes or lesions noted Neuro no focal motor deficits Psych Mood & Affect: anxious Charges/Coding Procedures Hospitalists Procedures: 79618 Critial Care 1st Hr Multi Select Codes Hospitalists' Procedures Procedures: 86213 Critial Care Addl 30 Min
--- NOTE | 2021-03-03 07:04 | PN_ITS ---
Progress Note An FIELDWORK COORDINATOR was called at 429 this morning for tachycardia. She was over 200 on her rate, but she was alert and hemodynamically stable. She was given 6 mg of adenosine which did slow her rate down and it appeared to be sinus, however she started coughing and worsened and needed 12 mg of adenosine. This caused her heart rate to be sustained for a few minutes down in the 120s however she continued to cough with her BiPAP and given her large amount of subcu emphysema is felt that she also likely had a pneumomediastinum, so chest x-ray was ordered. Also at this time she was given another dose of her oral metoprolol however she was still significantly tachycardic over 200 therefore she was given a third dose of 12 mg of adenosine and this also did not sustain her. At this time she did become slightly hypotensive though her maps remained above 65 therefore she was not cardioverted and she was able to spontaneously convert to a heart rate in the 110s and her blood pressure stabilized. She was transitioned off of BiPAP and onto air Vo in the hopes that this would lessen further episodes of SVT given her likely pneumomediastinum. Critical care time including monitoring patient and reviewing lab work vital signs and EKGs was 45 minutes Procedures Hospitalists Procedures: 53736 Critial Care 1st Hr
[2021-03-03] MEDS: dexAMETHasone 10 MG/ML Vial 6 MG IV (07:46)
[2021-03-03] MEDS: Enoxaparin 30 MG/0.3 ML Syringe SC ×2 (07:46→20:45)
--- NOTE | 2021-03-03 08:15 | NURSING ---
patient RR, HR, and BP elevated, pt stated feeling SOB, labored breathing, face red, diaphoretic, maxed on airvo. Per Dr. Galarza attempt non-rebreather over airvo, may need to place back on bipap if needed. Non-rebreather placed now
[2021-03-03 08:26] LABS: Bedside Glucose 307 mg/dL (70-110)
--- NOTE | 2021-03-03 08:32 | PCM.PN.HOSP ---
Subjective Subjective Overnight events were noted and discussed with nighttime hospitalist. Patient had multiple episodes of SVT, heart rate in 200s which slowed down to 100-120s. Patient does not have prior issues of heart rate and rhythm disorder or cardiac disease. SVT seems probably manifested by pulmonary issues. In the morning today, patient received multiple doses of adenosine and then one 5 mg IV metoprolol and 25 mg oral metoprolol but he still heart rate was not responsive. Patient was finally intubated. Chest x-ray shows pneumomediastinum with soft tissue gas in neck and chest wall zoster subcutaneous emphysema. Discussed with the life insurance underwriter and advised to control heart on beta-omar and calcium channel omar. Objective Data Objective Data Vital Signs: Vital Signs Temp Pulse Resp BP Pulse Ox 99.5 F H 117 H 28 H 169/79 H 95 03/03/21 04:00 03/03/21 08:20 03/03/21 08:20 03/03/21 07:00 03/03/21 08:20 Oxygen Flow Rate (L/min) 60 Oxygen Delivery Method Airvo Weight: 208 lb 8.917 oz Body Mass Index (BMI) 33.1 Intake & Output: Intake and Output for Last 24 Hours 03/01/21 03/02/21 03/03/21 23:59 23:59 23:59 Intake Total 1012.32 / 1019.32 924.15 / 984.15 160 / 160 Output Total 200 / 200 175 / 450 275 / 275 Balance 812.32 / 819.32 749.15 / 534.15 -115 / -115 Lab / Micro Data Result Diagrams: 03/03/21 04:00 03/03/21 05:00 Labs: Laboratory Results - last 24 hr 03/02/21 11:44: POC Glucose 308 H 03/02/21 15:08: POC Glucose 305 H 03/02/21 17:03: POC Glucose 316 H 03/02/21 23:18: POC Glucose 281 H 03/03/21 04:00: WBC 22.0 H, RBC 4.73, Hgb 14.1, Hct 42.7, MCV 90.3, MCH 29.8, MCHC 33.0, RDW Std Deviation 46.0 H, RDW Coeff of Curt 13.9, Plt Count 277, MPV 9.9, Immature Gran % (Auto) 1.700 H, Neut % (Auto) 90.5 H, Lymph % (Auto) 4.1 L, [place] % (Auto) 3.4, Eos % (Auto) 0.0, Baso % (Auto) 0.3, Absolute Neuts (auto) 19.9 H, Absolute Lymphs (auto) 0.90, Nucleated RBC % 0 03/03/21 04:00: Sodium Cancelled, Potassium Cancelled, Chloride Cancelled, Carbon Dioxide Cancelled, Anion Gap Cancelled, BUN Cancelled, Creatinine Cancelled, Estim Creat Clear Calc Cancelled, Est GFR (MDRD) Af Amer Cancelled, Est GFR (MDRD) Non-Af Cancelled, BUN/Creatinine Ratio Cancelled, Glucose Cancelled, Calcium Cancelled 03/03/21 05:00: Sodium 137, Potassium 4.5, Chloride 107, Carbon Dioxide 21.0, Anion Gap 9, BUN 35 H, Creatinine 0.61, Estim Creat Clear Calc 90.66, Est GFR (MDRD) Af Amer 127, Est GFR (MDRD) Non-Af 105, BUN/Creatinine Ratio 57.1 H, Glucose 298 H, Calcium 9.0 03/03/21 07:51: POC Glucose 307 H Micro: Microbiology 03/01/21 03:50 Urine, Clean Catch Streptococcus pneumoniae Antigen (M - Final 03/01/21 03:50 Urine, Clean Catch Legionella Antigen - Final Radiography Diagnostic Testing: Radiology Impression Chest X-Ray 03/03/21 05:55 IMPRESSION: Pneumomediastinum. Bilateral pneumonia. Substantial bilateral chest wall emphysema with extension into the neck. Electronically Signed: Ezequiel Russ MD at 7:04 EDT Tel , Service support , ADDENDUM: 03/03/21 0718 IMPRESSION: Pneumomediastinum. Bilateral pneumonia. Substantial bilateral chest wall emphysema with extension into the neck. N.B. : The above Results were Read Back by Ezequiel Russ MD to , AA, and understanding confirmed on 03/03/2021 07:11:04 (ET). Electronically Signed: Ezequiel Russ MD at 7:04 EDT Tel , Service support , Physical Exam Narrative General: On BiPAP in the morning and then later on intubated. HEENT: Atraumatic, PERRLA, EOMI, Normocephalic Oral: ET OG tube. Neck: Subcutaneous crepitations palpable in neck, supraclavicular and upper chest. No JVD, Negative Carotid Bruits Lungs: On vent. Air entry diminished in bilateral lung bases. Tachypneic and severely hypoxic. Bilateral coarse crepitation Cardiovascular: Sinus tachycardia, Normal S1, Normal S2, No murmurs Abdomen: Bowel Sounds Present, Soft, Non Tender, Non-Distended : No renal angle tenderness. No suprapubic tenderness. Extremities: Mild ankle edema, Capillary Refill Less than 3 Seconds Skin: No rashes, No breakdown Musculoskeletal: No Tenderness to Palpation of Joints or Extremities Neurological: Cranial nerves II-XII grossly intact, Psych/Mental Status: On ventilator Assessment & Plan Assessment/Plan (1) Respiratory failure: QUALIFIERS: Chronicity: acute Respiratory failure complication: hypoxia Qualified Code(s): J96.01 - Acute respiratory failure with hypoxia (2) COVID-19: PLAN: This 60-year-old female with multiple comorbidities admitted with 2-week history of progressive worsening of weakness, shortness of breath, dry cough, postnasal drip. She was found severely hypoxic and tachypneic, in acute hypoxic respiratory failure and was directly admitted from [facility] nonrebreather mask 1. Acute hypoxemic respiratory failure secondary to bilateral COVID-19 pneumonia with pneumomediastinum and subcutaneous emphysema: The patient is unvaccinated. Patient is admitted in ICU. Seen by training and development project leader. Currently on BiPAP. On Precedex drip as patient was trying to remove BiPAP mask. On Decadron. Not candidate for remdesivir as out of window. Supportive treatment with mucolytic, Pep and bronchodilator. 03/02: Continue BiPAP/AVAPS support. On Precedex drip. 03/03: Patient is intubated because of increased work of breathing, PSVT. Chest x-ray shows pneumomediastinum with subcutaneous emphysema. 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 Not responsive to adenosine and metoprolol IV. Discussed with the life insurance underwriter and advised to control with beta-omar and calcium omar. Patient does not have prior cardiac history. 2. Bilateral COVID-19 pneumonia: As mentioned above 3. Diabetes mellitus: Accu-Cheks insulin coverage block sliding scale. On basal insulin. 03/02: Blood sugar is elevated between 265-308. Insulin dose titrated up 4. DVT prophylaxis Subcutaneous Lovenox 30 mg twice daily. Charges/Coding Visit Charges Inpatient E&M: 28913 [facility] Hosp L3
--- NOTE | 2021-03-03 09:09 | EKG12_ITS ---
Test Reason : RHYTHM CHANGE Blood Pressure : / mmHG Vent. Rate : 136 BPM Atrial Rate : 136 BPM P-R Int : 126 ms QRS Dur : 078 ms QT Int : 272 ms P-R-T Axes : 046 039 094 degrees QTc Int : 409 ms Sinus tachycardia Nonspecific ST and T wave abnormality Abnormal ECG Confirmed by EFRA DUARTE, RINA ([id number]), drug and alcohol counselor DAVID FARRELL ([id number]) on 03/09/2021 7:36:52 AM Referred By: ELVI Confirmed By:RINA KRAUS MD
--- NOTE | 2021-03-03 09:10 | EKG12_ITS ---
Test Reason : RYTHMN CHANGE Blood Pressure : / mmHG Vent. Rate : 127 BPM Atrial Rate : 127 BPM P-R Int : 134 ms QRS Dur : 082 ms QT Int : 286 ms P-R-T Axes : 069 040 090 degrees QTc Int : 415 ms Sinus tachycardia with Fusion complexes Nonspecific ST and T wave abnormality Abnormal ECG When compared with ECG of 03-MAR-2021 09:09, MANUAL COMPARISON REQUIRED, DATA IS UNCONFIRMED Confirmed by MARTIN DUARTE, ANGELA ([id number]), tape editor DAVID FARRELL ([id number]) on 03/11/2021 2:16:08 PM Referred By: ELVI Confirmed By:ANGELA SALAZAR MD
--- NOTE | 2021-03-03 09:11 | EKG12_ITS ---
Test Reason : RYTHMN CHANGE Blood Pressure : / mmHG Vent. Rate : 209 BPM Atrial Rate : 209 BPM P-R Int : 120 ms QRS Dur : 084 ms QT Int : 212 ms P-R-T Axes : 000 027 134 degrees QTc Int : 395 ms Supraventricular tachycardia Nonspecific ST and T wave abnormality Abnormal ECG Confirmed by EFRA DUARTE, RINA ([id number]), editor in chief newspaper DAVID FARRELL ([id number]) on 03/09/2021 7:36:41 AM Referred By: ELVI Confirmed By:RINA KRAUS MD
[2021-03-03] MEDS: Metoprolol Tartrate 5 MG/5 ML Vial IV (09:21)
[2021-03-03 09:36] LABS: Phosphorus 2.7 mg/dL (2.5-4.9); Troponin-I HS 324 pg/mL (3.0-54.0)
[2021-03-03] MEDS: Midazolam 2 MG/2 ML Syringe 4 MG IV (09:39)
[2021-03-03] MEDS: Etomidate 20 MG/10 ML Vial IV (09:40)
[2021-03-03] MEDS: Succinylcholine Chloride 200 MG/10 ML Vial 100 MG IV (09:44)
[2021-03-03] MEDS: Propofol 10MG/Ml 1,000 MG/100 ML Bottle 5.7 MG CONT INF (09:45)
--- NOTE | 2021-03-03 09:47 | RAD_ITS ---
STUDY: X-RAY CHEST REASON FOR EXAM: Respiratory distress., 60-year-old patient. TECHNIQUE: Single AP portable view of the chest. COMPARISON: Comparison is made with prior examination dated 03/03/2021 at 5:47 AM. FINDINGS: An endotracheal tube has been placed. The tip is at 3.8 sinus proximal to the jasmina. An orogastric tube is seen with the tip below the left hemidiaphragm. Stable persistent bilateral diffuse pulmonary infiltrates. There is evidence of progressive subcutaneous emphysema overlying the lower cervical region and both sides of the chest. There is no demonstrated pleural abnormality. Normal size heart. Normal mediastinum and mary. Normal visualized pulmonary arteries. Normal visualized aortic arch and descending thoracic aorta. Normal visualized thoracic spine. Prior intramedullary cody fixation of the right femur. There is no demonstrated abnormality of the visualized soft tissue structures of the upper abdomen. RAD/Chest 1 View (Portable) IMPRESSION: The tip of the endotracheal tube is at 3.8 cm proximally jasmina. Stable bilateral pulmonary infiltrates. Slight increase in the subcutaneous emphysema. Electronically Signed: Zeferino Duong MD at 10:47 EDT , Service support ,
--- NOTE | 2021-03-03 10:00 | NURSING ---
per Dr. Galarza's order, increased propofol to 20 mcg/kig/min and fentanyl to 100 mcg/hr
[2021-03-03 11:01] LABS: Allen Test Positive; Base Excess -3 mmol/L (-2 to +2); Bicarbonate 25.2 mmol/L (22-26); Blood Gas Specimen Type ART; FI02 100; Mode AC; O2 Delivery Device Adult Vent; PEEP 10; PO2 67 mmHG (75-100); RR 12; SITE L Radial; SO2 87 % (95-99); Total Carbon Dioxide 27 mmol/L; Vt 350; pCO2 64.9 mmHg (35-45)
[2021-03-03 11:28] LABS: BNP,B-Type NATRIURETIC PEPTIDE 187.9 pg/mL (0-100)
[2021-03-03 11:43] LABS: CPK Total, Creatine Kinase 104 U/L (26-192); Triglycerides 230 mg/dL
[2021-03-03 11:46] LABS: Troponin-I HS 795 pg/mL (3.0-54.0)
--- NOTE | 2021-03-03 12:01 | NURSING ---
0939- versed 4 mg IV given per Dr. Galarza 0940- etomidate [address] Galarza 0942 #7.[address] Galarza, 23 @ lip, positive color change, bilateral breath sounds, FiO2 100%, PEEP 10 0944- Succinylcholine 100 mg IV given per Dr. Galarza, propofol and fentanyl given as order 0950- OG placed, CXR to be obtained
[2021-03-03] MEDS: Metoprolol Tartrate 25 MG Tablet PO (12:22)
[2021-03-03] MEDS: CHLORHEXIDINE GLUC 2% CLOTH 1 EACH TOWELETTE TOPICAL (12:23)
[2021-03-03 12:30] LABS: Bedside Glucose 307 mg/dL (70-110)
[2021-03-03] MEDS: Propofol 10MG/Ml 1,000 MG/100 ML Bottle 25.5 MG CONT INF (12:40)
--- NOTE | 2021-03-03 13:40 | RAD_ITS ---
STUDY: X-RAY CHEST REASON FOR EXAM: Female, 60 years old. PICC Line Placement TECHNIQUE: Single AP portable view of the chest. COMPARISON: Comparison is made with prior examination done earlier in the day. FINDINGS: A right-sided PICC line catheter has been placed. The tip is in the midportion of the superior vena cava. The remainder of the examination is unchanged. RAD/CXR for Line Placement IMPRESSION: The tip of the right PICC line catheter is in the midportion of the superior vena cava. Electronically Signed: Zefreino Duong MD at 14:14 EDT , Service support ,
--- NOTE | 2021-03-03 13:49 | CASEMGMT ---
Social Work Nursing notified SW that pt has been intubated and staff is unable to reach son. SW placed call to pt sandi Mayen at listed number and it is not working. Pt is new to [facility] with no other medical information. Pt transferred from [facility]. VM left with CM at [facility]. Phone call to pt PCP Dr. Al Mejia's office. Shipping [employer] Receiving [employer] provided a new phone number for pt sandi Mayen and a friend Iraida Sears. Phone call to son at second phone number and it is also non working. Phone call to Iraida Renu [phone] and VM left leaving no identifying information for pt but requesting a return call to [facility] ICU. Nursing updated. ERICKSON Rg
--- NOTE | 2021-03-03 14:23 | CPS ---
critical values on ABG. Dr. Galarza informed of critical values
[2021-03-03 14:30] LABS: Allen Test Positive; Base Excess -7 mmol/L (-2 to +2); Bicarbonate 24.8 mmol/L (22-26); Blood Gas Specimen Type ART; FI02 100; Mode AC; O2 Delivery Device Adult Vent; PEEP 12; PO2 79 mmHG (75-100); RR 14; SITE L Radial; SO2 85 % (95-99); Total Carbon Dioxide 28 mmol/L; Vt 350; pCO2 103.3 mmHg (35-45); pH 6.99 (7.35-7.45)
--- NOTE | 2021-03-03 14:41 | CASEMGMT ---
RN CM deferred at this time. Patient is currently intubated and unable to participate in assessment. CM will continue to follow this patient and plan for a safe discharge.
--- NOTE | 2021-03-03 14:45 | NURSING ---
IV extravasation site outlined and warm compress applied, arm elevated on pillow.
--- NOTE | 2021-03-03 14:55 | NURSING ---
1415- after trouble shooting TOF with Lizzie Schwartz RN and attempting different placement of TOF facial, ulnar, and radial, 0 twitches noted, nimbex nathan, Dr. Galarza aware.
[2021-03-03] MEDS: Pantoprazole Sodium 40 MG Tablet PO (15:21)
[2021-03-03 16:50] LABS: Allen Test Positive; Base Excess -8 mmol/L (-2 to +2); Blood Gas Specimen Type ART; FI02 100; Mode AC; O2 Delivery Device Adult Vent; PEEP 12; PO2 81 mmHG (75-100); RR 16; SITE L Radial; SO2 92 % (95-99); Total Carbon Dioxide 23 mmol/L; Vt 400; pCO2 59.7 mmHg (35-45); pH 7.15 (7.35-7.45)
[2021-03-03 18:25] LABS: Bedside Glucose 344 mg/dL (70-110)
--- NOTE | 2021-03-03 19:35 | NURSING ---
After multiple phones calls to Faheem at the phone number listed with no success, Gorge Nathaniel (son) called in and stated I am Shaniqua's son, but we don't really talk anymore. This RN communicated to Gorge that Faheem is the only son listed, since we haven't been able to get a hold of him I can tell you she is unstable, requested Faheem's number. Gorge unable to give this RN Faheem's number. Iraida Flores, pt's friend, called in to ICU, stated she is a friend and helps take care of Shaniqua. Stated Shaniqua lives alone, is an extreme hoarder, and has no running water in her house. She has severe disability and needs a lot of help since her TBI, but doesn't want to listen to anyone. This RN again communicated to Iraida we haven't been able to get a hold of Faheem, her son. Iraida stated Faheem works at [employer] in [place] if you want to call there. This RN placed call to [employer] in [place] and was able to speak with Faheem, sandi. Updated Faheem on patient condition, discussed code status and at this time Faheem would like patient to remain FULL CODE, got updated phone number for Faheem and added to demographics. All questions answers at this time.
[2021-03-03] MEDS: Amiodarone 360 MG in Dextrose 5% Viaflo Bag 192.8 ML 33.3 MG CONT INF (20:42)
[2021-03-03] MEDS: Metoprolol Tartrate 25 MG Tablet GT (20:47)
[2021-03-03 21:41] LABS: Bedside Glucose 350 mg/dL (70-110)
[2021-03-04] VITALS (44 sets, daily range): BP systolic 83–196; BP diastolic 54–90; PULSE 70–97; RESP 16–32; TEMP 37.2–38.2; O2SAT 90–98
[2021-03-04] MEDS: Insulin Lispro 100 UNIT/ML INSULN.PEN SC ×4 (00:25→18:06)
[2021-03-04] MEDS: Propofol 10MG/Ml 1,000 MG/100 ML Bottle 8.5 MG CONT INF (00:45)
[2021-03-04 00:51] LABS: Bedside Glucose 345 mg/dL (70-110)
[2021-03-04] MEDS: Amiodarone 360 MG in Dextrose 5% Viaflo Bag 192.8 ML 16.7 MG CONT INF ×2 (02:30→17:02)
[2021-03-04] MEDS: Propofol 10MG/Ml 1,000 MG/100 ML Bottle 14.2 MG CONT INF ×2 (04:57→22:00)
[2021-03-04 05:06] LABS: Bedside Glucose 305 mg/dL (70-110)
[2021-03-04 05:14] LABS: Absolute Lymphocyte Count 0.72 X10^3/uL (0.83-4.51); Absolute Neutrophil Count 15.1 X10^3/uL (2.0-7.7); Basophil# 0.07 X10^3/uL; Basophil% 0.4 % (0-1); Hematocrit 39.7 % (37-47); Hemoglobin 12.9 g/dL (12.0-15.0); Lymphocyte # 0.72 X10^3/ul (0.83-4.51); Lymphocyte % 4.3 % (19-41); Mean Corp Hgb Conc 32.5 g/dL (32-36); Mean Corpuscular Hgb 30.3 pg (27.0-32.0); Mean Corpuscular Volume 93.2 fL (81-99); Mean Platelet Vol. 10.2 fl (6.2-12.0); Monocyte# 0.55 X10^3/uL; Monocyte% 3.2 % (0-10); NRBC Flagged by Analyzer 0 % (0-5); Neutrophil # 15.08 X10^3/uL (2.7-7.7); Platelet Count 168 K/mm3 (150-450); RBC Distribution Width CV 14.5 % (11.6-14.6); RBC Distribution Width SD 50.1 fl (35.1-43.9); Red Blood Count 4.26 M/mm3 (4.2-5.4); White Blood Count 16.9 K/mm3 (4.4-11.0)
[2021-03-04 05:57] LABS: ALB/GLOB Ratio 0.3 RATIO (0.9-2.4); AST(SGOT) 2091 U/L (15-37); Alanine Aminotransfer ALT/SGPT 808 U/L (13-56); Albumin, Serum 1.3 g/dL (3.2-5.0); Alkaline Phosphatase 208 U/L (45-117); Anion Gap 7 (5-15); BUN 62 mg/dL (7-18); Calcium,Total 7.7 mg/dL (8.5-10.1); Chloride 110 mmol/L (98-107); Creatinine, Serum 1.41 mg/dL (0.55-1.02); EST Glomerular Filtration Rate 40 mL/min (>60); Est Glom Filt Rate - Afr Amer 49 mL/min (>60); Estimated Creatinine Clearance 39.22 ml/min; Globulin 4.2 g/dL (2.2-4.2); Glucose 330 mg/dL (74-106); Magnesium 2.5 mg/dL (1.6-2.6); Phosphorus 3.5 mg/dL (2.5-4.9); Potassium 4.5 mmol/L (3.5-5.1); Protein, Total 5.5 g/dL (6.4-8.2); Sodium Level 140 mmol/L (136-145)
--- NOTE | 2021-03-04 06:40 | PN.CC_ITS ---
Assessment & Plan Assessment/Plan (1) COVID-19: PLAN: RECOMMENDATIONS: 1. Continue assist control mode of mechanical ventilation. Wean FiO2/PEEP to maintain saturations at or above 90%. 2. Maintain plateau pressures less than 30. 3. Continue empiric antimicrobials. 4. Continue fentanyl and propofol for sedation. 5. Continue tube feeds as tolerated. 6. Continue Decadron to complete 10-day treatment course. 7. Continue Lovenox twice daily. 8. Continue appropriate ICU prophylaxis. IMPRESSIONS: 1. Acute hypoxemic respiratory failure secondary to COVID-19 pneumonia The patient has an unvaccinated status. Given her delayed presentation, she was not felt to be a candidate for remdesivir. Over the course of her early hospita lization, attempts to stabilize the patient on noninvasive positive pressure ventilatory support proved unsuccessful. The patient eventually required intubation on the morning of March 03. Plan to continue her on assist control mode of mechanical ventilation and wean FiO2 and PEEP to maintain oxygen saturations at or above 90%. The patient will be sedated on propofol and fentanyl. Empiric antimicrobials will be continued to complete 7-day treatment course. Tube feeds will be initiated today. Decadron will be continued to complete a 10-day treatment course. 2. Pneumomediastinum We will attempt to limit airway pressures as tolerated. Continue supportive me asures. Obtain repeat chest x-ray with any clinical decompensation. 3. SVT Resolved with pharmacologic intervention. 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 4. Diabetes mellitus Continue Lantus and sliding scale insulin coverage. 5. Anxiety/hypertension/obesity Complicates care, management, recovery and prognosis. Continue supportive measures as noted above. TIME: 35 minutes of critical care time, inclusive of procedures, was spent addressing the patient's acute hypoxemic respiratory failure secondary to COVID-19 pneumonia, pneumomediastinum, supraventricular tachycardia, review of all data and collaboration with the care team. ([id number]) Subjective Subjective The patient was seen and examined at the bedside this morning. Events from the last 24 hours have been reviewed. The patient has had low-grade fevers overnight. She remains hemodynamically stable off of vasopressor support. She has also been weaned from cisatracurium. The patient continues to have crepitus due to her pneumomediastinum. She remains on assist control mode mechanical ventilation with an FiO2 requirement of 90% and PEEP of 12. She remains sedated on propofol and fentanyl. She is documented to be overall net +2.6 L for the hospital admission. White count is down to 17,000 this morning. Chemistry profile revealed a creatinine of 1.41. AST, ALT and alkaline phosphatase are all increased. The patient's SVT did respond to amiodarone and beta-omar initiation. Repeat ABG this morning revealed a pH of 7.3 with a PCO2 of 46 and PO2 of 69. Plateau pressures remain less than 30. Objective Data Objective Data The patient's most recent lab work, culture data and imaging studies have all been personally reviewed. Strep and urine Legionella antigens were negative. Sputum culture is pending. Vital Signs: Vital Signs Temp Pulse Resp BP Pulse Ox 99.9 F H 78 20 H 109/59 L 93 03/04/21 04:00 03/04/21 06:00 03/04/21 06:00 03/04/21 06:00 03/04/21 06:00 Oxygen Flow Rate (L/min) 65 Oxygen Delivery Method Mechanical Ventilator Weight: 92.3 kg Body Mass Index (BMI) 33.1 Intake & Output: Intake and Output for Last 24 Hours 03/02/21 03/03/21 03/04/21 23:59 23:59 23:59 Intake Total 924.15 / 984.15 1184.21 / 1260.81 565.22 / 565.22 Output Total 175 / 450 475 / 575 200 / 200 Balance 749.15 / 534.15 709.21 / 685.81 365.22 / 365.22 Lab / Micro Data Attestation: I reviewed the patient's lab results. Result Diagrams: 03/04/21 04:50 03/04/21 04:50 Labs: Laboratory Results - last 24 hr 03/03/21 05:00: Phosphorus 2.7, Troponin I High Sens 324 H* 03/03/21 07:51: POC Glucose 307 H 03/03/21 11:00: Total Creatine Kinase 104, Triglycerides 230 H 03/03/21 11:00: Troponin I High Sens 795 H* 03/03/21 11:00: B-Natriuretic Peptide 187.9 H 03/03/21 12:21: POC Glucose 307 H 03/03/21 17:59: POC Glucose 344 H 03/03/21 20:40: POC Glucose 350 H 03/04/21 00:20: POC Glucose 345 H 03/04/21 04:50: WBC 16.9 H, RBC 4.26, Hgb 12.9, Hct 39.7, MCV 93.2, MCH 30.3, MCHC 32.5, RDW Std Deviation 50.1 H, RDW Coeff of Curt 14.5, Plt Count 168, MPV 10.2, Immature Gran % (Auto) 3.100 H, Neut % (Auto) 89.0 H, Lymph % (Auto) 4.3 L , [place] % (Auto) 3.2, Eos % (Auto) 0.0, Baso % (Auto) 0.4, Absolute Neuts (auto) 15.1 H, Absolute Lymphs (auto) 0.72 L, Nucleated RBC % 0 03/04/21 04:50: Sodium 140, Potassium 4.5, Chloride 110 H, Carbon Dioxide 23.0, Anion Gap 7, BUN 62 H, Creatinine 1.41 H, Estim Creat Clear Calc 39.22, Est GFR (MDRD) Af Amer 49 L, Est GFR (MDRD) Non-Af 40 L, BUN/Creatinine Ratio 44.0 H, Glucose 330 H, Calcium 7.7 L, Phosphorus 3.5, Magnesium 2.5, Total Bilirubin 0.50, AST 2091 H, ALT 808 H, Alkaline Phosphatase 208 H, Total Protein 5.5 L, Albumin 1.3 L, Globulin 4.2, Albumin/Globulin Ratio 0.3 L 03/04/21 04:53: POC Glucose 305 H Micro: Microbiology 03/03/21 10:50 Sputum, Induced/Lukens Gram Stain - Final 03/01/21 03:50 Urine, Clean Catch Streptococcus pneumoniae Antigen (M - Final 03/01/21 03:50 Urine, Clean Catch Legionella Antigen - Final ABG Data ABG results: ABG 03/03/21 03/03/21 03/03/21 10:55 14:23 16:47 Specimen Type ART ART ART Sample Site L Radial L Radial L Radial pH 7.20 L 6.99 L* 7.15 L* Bicarbonate Actual 25.2 24.8 21.0 L Total CO2 27 28 23 Base Excess -3 L -7 L -8 L O2 Saturation 87 L 85 L 92 L O2 % 100 100 100 ABG pCO2 64.9 H 103.3 H* 59.7 H ABG pO2 67 L 79 81 Damion Test Positive Positive Positive Respiration Rate 12 14 16 O2 Delivery Device Adult Vent Adult Vent Adult Vent Liter Flow Minute Volume Vent Mode AC AC AC Inspiratory Time Expiratory Time Tidal Volume 350 350 400 Mean Airway Pressure POC PEEP 10 12 12 Peak Inspir Pressure POC Pressure Suppt Pressure Control Pressure High Pressure Low Time High Time Low EPAP IPAP Blood Gas Comments Crit Call To/Read Back Yes Yes Yes Blood Gas Notified Whom brown Blood Gas Notified Time Clinical Comments 03/03/21 16:52 Specimen Type Cancelled Sample Site Cancelled pH Cancelled Bicarbonate Actual Cancelled Total CO2 Cancelled Base Excess Cancelled O2 Saturation Cancelled O2 % Cancelled ABG pCO2 Cancelled ABG pO2 Cancelled Damion Test Cancelled Respiration Rate Cancelled O2 Delivery Device Cancelled Liter Flow Cancelled Minute Volume Cancelled Vent Mode Cancelled Inspiratory Time Cancelled Expiratory Time Cancelled Tidal Volume Cancelled Mean Airway Pressure Cancelled POC PEEP Cancelled Peak Inspir Pressure Cancelled POC Pressure Suppt Cancelled Pressure Control Cancelled Pressure High Cancelled Pressure Low Cancelled Time High Cancelled Time Low Cancelled EPAP Cancelled IPAP Cancelled Blood Gas Comments Cancelled Crit Call To/Read Back Cancelled Blood Gas Notified Whom Cancelled Blood Gas Notified Time Cancelled Clinical Comments Cancelled Radiography Diagnostic Testing: Radiology Impression Chest X-Ray 03/03/21 05:55 IMPRESSION: Pneumomediastinum. Bilateral pneumonia. Substantial bilateral chest wall emphysema with extension into the neck. Electronically Signed: Ezequiel Russ MD at 7:04 EDT Tel , Service support , ADDENDUM: 03/03/21 0718 IMPRESSION: Pneumomediastinum. Bilateral pneumonia. Substantial bilateral chest wall emphysema with extension into the neck. N.B. : The above Results were Read Back by Ezequiel Russ MD to , AA, and understanding confirmed on 03/03/2021 07:11:04 (ET). Electronically Signed: Ezequiel Russ MD at 7:04 EDT Tel , Service support , Chest X-Ray 03/03/21 09:47 IMPRESSION: The tip of the endotracheal tube is at 3.8 cm proximally jasmina. Stable bilateral pulmonary infiltrates. Slight increase in the subcutaneous emphysema. Electronically Signed: Zeferino Duong MD at 10:47 EDT , Service support , Chest X-Ray 03/03/21 13:40 IMPRESSION: The tip of the right PICC line catheter is in the midportion of the superior vena cava. Electronically Signed: Zeferino Duong MD at 14:14 EDT , Service support , Physical Exam Const no apparent distress General Appearance: intubated and patient mechanically ventilated Nutritional Appearance: obese HEENT normocephalic and head/scalp atraumatic Mouth: endotracheal tube in place and OG tube in place Eyes PERRL, EOMs intact bilaterally and conjunctivae normal Neck supple General: trachea midline Resp Resp Narrative: No ventilator dyssynchrony. Auscultation: diminished lung sounds; Negative for rales, rhonchi or wheezes Cardio regular rate and regular rhythm GI normal to inspection, nondistended, normoactive bowel sounds Extremity no clubbing, cyanosis or edema Skin no rashes or lesions noted Neuro no focal motor deficits Sensorium / Orientation: sedated on vent Charges/Coding Procedures Hospitalists Procedures: 31748 Critial Care 1st Hr
--- NOTE | 2021-03-04 06:45 | US_ITS ---
STUDY: ABDOMINAL ULTRASOUND - RIGHT UPPER QUADRANT REASON FOR VISIT: Female, 60 years old acute liver injury -- PT INTUBATED , limited views TECHNIQUE: Ultrasound evaluation of the right upper quadrant was performed with real-time and static zuluaga-scale imaging. TECHNICAL QUALITY: Adequate. COMPARISON: None. FINDINGS: Liver: The liver measures 14.1 cm. There is normal echogenicity of the liver. The bile ducts are within normal limits. There is hepatic color flow. The direction of portal flow is hepatopetal. There is no demonstrated mass lesion. Gallbladder: The gallbladder is not visualized. Common Bile Duct (C.B.D.): The common bile duct measures 7.2 mm. Pancreas: Normal size of the head, body and tail of the pancreas. There is normal echogenicity of the pancreas. There is no demonstrated pancreatic mass or cyst. Right Kidney: Normal size of the right kidney. The right kidney measures 11.2 cm x 5.6 cm x 5.3 cm. Normal renal cortex. The right cortex measures 1.5 cm. There is no demonstrated renal mass or cyst. There is no right hydronephrosis. US/Liver IMPRESSION: Nonvisualization of the gallbladder. Electronically Signed: Zeferino Duong MD at 14:10 EDT , Service support ,
[2021-03-04] MEDS: Enoxaparin 30 MG/0.3 ML Syringe SC ×2 (10:10→20:52)
[2021-03-04] MEDS: dexAMETHasone 10 MG/ML Vial 6 MG IV (10:11)
[2021-03-04] MEDS: Lansoprazole 15 MG Capsule.DR 30 MG NG (10:11)
[2021-03-04] MEDS: CHLORHEXIDINE GLUC 2% CLOTH 1 EACH TOWELETTE TOPICAL (10:11)
[2021-03-04 12:33] LABS: M R Staph aureus DNA By PCR Negative (Negative); Probe Check PASS; Specimen Processing Control PASS
[2021-03-04] MEDS: Propofol 10MG/Ml 1,000 MG/100 ML Bottle 11.4 MG CONT INF (13:15)
[2021-03-04 13:16] LABS: Bedside Glucose 203 mg/dL (70-110)
--- NOTE | 2021-03-04 13:29 | PCM.PN.HOSP ---
Subjective Subjective Patient is intubated. On propofol and fentanyl drip. On volume control/AC mode of ventilator Objective Data Objective Data Vital Signs: Vital Signs Temp Pulse Resp BP Pulse Ox 99.0 F 79 23 H 156/72 H 98 03/04/21 12:00 03/04/21 12:00 03/04/21 12:00 03/04/21 12:00 03/04/21 12:00 Oxygen Flow Rate (L/min) 65 Oxygen Delivery Method Mechanical Ventilator Weight: 203 lb 7.787 oz Body Mass Index (BMI) 33.1 Intake & Output: Intake and Output for Last 24 Hours 03/02/21 03/03/21 03/04/21 23:59 23:59 23:59 Intake Total 924.15 / 984.15 1184.21 / 1260.81 875.37 / 875.37 Output Total 175 / 450 475 / 575 650 / 650 Balance 749.15 / 534.15 709.21 / 685.81 225.37 / 225.37 Lab / Micro Data Result Diagrams: 03/04/21 04:50 03/04/21 04:50 Labs: Laboratory Results - last 24 hr 03/03/21 17:59: POC Glucose 344 H 03/03/21 20:40: POC Glucose 350 H 03/04/21 00:20: POC Glucose 345 H 03/04/21 04:50: WBC 16.9 H, RBC 4.26, Hgb 12.9, Hct 39.7, MCV 93.2, MCH 30.3, MCHC 32.5, RDW Std Deviation 50.1 H, RDW Coeff of Curt 14.5, Plt Count 168, MPV 10.2, Immature Gran % (Auto) 3.100 H, Neut % (Auto) 89.0 H, Lymph % (Auto) 4.3 L, [place] % (Auto) 3.2, Eos % (Auto) 0.0, Baso % (Auto) 0.4, Absolute Neuts (auto) 15.1 H, Absolute Lymphs (auto) 0.72 L, Nucleated RBC % 0 03/04/21 04:50: Sodium 140, Potassium 4.5, Chloride 110 H, Carbon Dioxide 23.0, Anion Gap 7, BUN 62 H, Creatinine 1.41 H, Estim Creat Clear Calc 39.22, Est GFR (MDRD) Af Amer 49 L, Est GFR (MDRD) Non-Af 40 L, BUN/Creatinine Ratio 44.0 H, Glucose 330 H, Calcium 7.7 L, Phosphorus 3.5, Magnesium 2.5, Total Bilirubin 0.50, AST 2091 H, ALT 808 H, Alkaline Phosphatase 208 H, Total Protein 5.5 L, Albumin 1.3 L, Globulin 4.2, Albumin/Globulin Ratio 0.3 L 03/04/21 04:53: POC Glucose 305 H 03/04/21 11:00: MRSA (PCR) Negative 03/04/21 13:00: POC Glucose 203 H Micro: Microbiology 03/03/21 10:50 Sputum, Induced/Lukens Gram Stain - Final 03/03/21 10:50 Sputum, Induced/Lukens Respiratory Culture - Preliminary Staphylococcus aureus 03/01/21 03:50 Urine, Clean Catch Streptococcus pneumoniae Antigen (M - Final 03/01/21 03:50 Urine, Clean Catch Legionella Antigen - Final ABG Data ABG results: ABG 03/03/21 03/03/21 03/03/21 14:23 16:47 16:52 Specimen Type ART ART Cancelled Sample Site L Radial L Radial Cancelled pH 6.99 L* 7.15 L* Cancelled Bicarbonate Actual 24.8 21.0 L Cancelled Total CO2 28 23 Cancelled Base Excess -7 L -8 L Cancelled O2 Saturation 85 L 92 L Cancelled O2 % 100 100 Cancelled ABG pCO2 103.3 H* 59.7 H Cancelled ABG pO2 79 81 Cancelled Damion Test Positive Positive Cancelled Respiration Rate 14 16 Cancelled O2 Delivery Device Adult Vent Adult Vent Cancelled Liter Flow Cancelled Minute Volume Cancelled Vent Mode AC AC Cancelled Inspiratory Time Cancelled Expiratory Time Cancelled Tidal Volume 350 400 Cancelled Mean Airway Pressure Cancelled POC PEEP 12 12 Cancelled Peak Inspir Pressure Cancelled POC Pressure Suppt Cancelled Pressure Control Cancelled Pressure High Cancelled Pressure Low Cancelled Time High Cancelled Time Low Cancelled EPAP Cancelled IPAP Cancelled Blood Gas Comments Cancelled Crit Call To/Read Back Yes Yes Cancelled Blood Gas Notified Whom brown Cancelled Blood Gas Notified Time Cancelled Clinical Comments Cancelled Radiography Diagnostic Testing: Radiology Impression Chest X-Ray 03/03/21 13:40 IMPRESSION: The tip of the right PICC line catheter is in the midportion of the superior vena cava. Electronically Signed: Zeferino Duong MD at 14:14 EDT , Service support , Physical Exam Narrative General: Intubated on volume control mode. HEENT: Atraumatic, PERRLA, EOMI, Normocephalic Oral: ET AND OG tube. Neck: Subcutaneous crepitations palpable in neck, supraclavicular and upper chest. No JVD, Negative Carotid Bruits Lungs: On vent. Air entry diminished in bilateral lung bases. Bilateral coarse crepitation Cardiovascular: Sinus rhythm, heart rate controlled. Normal S1, Normal S2, No murmurs Abdomen: Bowel Sounds Present, Soft, Non Tender, Non-Distended : No renal angle tenderness. No suprapubic tenderness. Extremities: Mild ankle edema, Capillary Refill Less than 3 Seconds Skin: No rashes, No breakdown Musculoskeletal: No Tenderness to Palpation of Joints or Extremities Neurological: Cranial nerves II-XII grossly intact, Psych/Mental Status: On ventilator Assessment & Plan Assessment/Plan (1) Respiratory failure: QUALIFIERS: Chronicity: acute Respiratory failure complication: hypoxia Qualified Code(s): J96.01 - Acute respiratory failure with hypoxia (2) COVID-19: PLAN: This 60-year-old female with multiple comorbidities admitted with 2-week history of progressive worsening of weakness, shortness of breath, dry cough, postnasal drip. She was found severely hypoxic and tachypneic, in acute hypoxic respiratory failure and was directly admitted from [facility] nonrebreather mask 1. Acute hypoxemic respiratory failure secondary to bilateral COVID-19 pneumonia with pneumomediastinum and subcutaneous emphysema: The patient is unvaccinated. Patient is admitted in ICU. Seen by structural steel detailer. Currently on BiPAP. On Precedex drip as patient was trying to remove BiPAP mask. On Decadron. Not candidate for remdesivir as out of window. Supportive treatment with mucolytic, Pep and bronchodilator. 03/02: Continue BiPAP/AVAPS support. On Precedex drip. 03/03: Patient is intubated because of increased work of breathing, PSVT. Chest x-ray shows pneumomediastinum with subcutaneous emphysema. 03/04: Mechanical ventilator management as per structural steel detailer. Initial preliminary sputum culture shows staph aureus, rare growth. 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 Not responsive to adenosine and metoprolol IV. Discussed with the setter helper and advised to control with beta-omar and calcium omar. Patient does not have prior cardiac history. 03/04: Currently heart rhythm is sinus rhythm. Heart rate is controlled. 2. Bilateral COVID-19 pneumonia: As mentioned above 3. Diabetes mellitus: Accu-Cheks insulin coverage block sliding scale. On basal insulin. 03/02: Blood sugar is elevated between 265-308. Insulin dose titrated up 03/03: Glucose about 200. 4. DVT prophylaxis Subcutaneous Lovenox 30 mg twice daily. Charges/Coding Visit Charges Inpatient E&M: 33626 [facility] Hosp L3
[2021-03-04] MEDS: Vital AF 1.2 Cal Liquid 1,000 ML 65 ML GT (18:05)
[2021-03-04 18:16] LABS: Bedside Glucose 199 mg/dL (70-110)
--- NOTE | 2021-03-04 19:38 | NURSING ---
192- Came onto shift and was checking drips with previous RN. Fentanyl drip needed to be changed. According to GADIEL it said to be done at 1843. Drip was changed at 1930.
[2021-03-04] MEDS: Labetalol (Prefilled) 20 MG/4 ML 10 MG IV (21:09)
[2021-03-04 22:45] LABS: Bedside Glucose 199 mg/dL (70-110)
[2021-03-05] VITALS (56 sets, daily range): BP systolic 90–224; BP diastolic 61–132; PULSE 69–174; RESP 16–31; TEMP 37.3–38.2; O2SAT 87–98
[2021-03-05] MEDS: Insulin Lispro 100 UNIT/ML INSULN.PEN SC ×5 (00:11→22:21)
[2021-03-05 00:20] LABS: Bedside Glucose 254 mg/dL (70-110)
[2021-03-05 04:19] LABS: Absolute Lymphocyte Count 0.51 X10^3/uL (0.83-4.51); Absolute Neutrophil Count 22.9 X10^3/uL (2.0-7.7); Basophil# 0.07 X10^3/uL; Basophil% 0.3 % (0-1); Hematocrit 42.2 % (37-47); Hemoglobin 13.3 g/dL (12.0-15.0); Lymphocyte # 0.51 X10^3/ul (0.83-4.51); Mean Corp Hgb Conc 31.5 g/dL (32-36); Mean Corpuscular Hgb 29.4 pg (27.0-32.0); Mean Corpuscular Volume 93.4 fL (81-99); Mean Platelet Vol. 10.2 fl (6.2-12.0); Monocyte% 3.2 % (0-10); NRBC Flagged by Analyzer 0 % (0-5); Neutrophil # 22.93 X10^3/uL (2.7-7.7); Neutrophil % 92.1 % (47-70); POSITIVE DIFFERENTIAL YES; Platelet Count 192 K/mm3 (150-450); RBC Distribution Width CV 14.6 % (11.6-14.6); RBC Distribution Width SD 49.9 fl (35.1-43.9); Red Blood Count 4.52 M/mm3 (4.2-5.4); White Blood Count 24.9 K/mm3 (4.4-11.0)
[2021-03-05 04:26] LABS: Differential Indicated SCAN CRITERIA MET
[2021-03-05 04:33] LABS: ALB/GLOB Ratio 0.3 RATIO (0.9-2.4); AST(SGOT) 610 U/L (15-37); Alanine Aminotransfer ALT/SGPT 585 U/L (13-56); Albumin, Serum 1.5 g/dL (3.2-5.0); Alkaline Phosphatase 221 U/L (45-117); Anion Gap 5 (5-15); BUN 58 mg/dL (7-18); Calcium,Total 8.2 mg/dL (8.5-10.1); Chloride 111 mmol/L (98-107); EST Glomerular Filtration Rate 60 mL/min (>60); Est Glom Filt Rate - Afr Amer 72 mL/min (>60); Estimated Creatinine Clearance 55.31 ml/min; Globulin 4.3 g/dL (2.2-4.2); Glucose 306 mg/dL (74-106); Potassium 4.9 mmol/L (3.5-5.1); Protein, Total 5.8 g/dL (6.4-8.2); Sodium Level 141 mmol/L (136-145)
[2021-03-05] MEDS: Labetalol (Prefilled) 20 MG/4 ML 10 MG IV ×2 (04:49→22:20)
--- NOTE | 2021-03-05 04:51 | CT_ITS ---
STUDY: CT HEAD STROKE PROTOCOL W/O CONTRAST INJECTION REASON FOR EXAM: Female, 60 years old. Stroke alert RADIATION DOSAGE (If Supplied By Facility): CTDIvol = ( 44.99 ) mGy, DLP = ( 1625.96 ) mGycm TECHNIQUE: Transaxial CT imaging of the brain was performed without administration of intravenous contrast material. Individualized dose optimization techniques were used for this CT. COMPARISON: No relevant priors. FINDINGS: Normal soft tissue structures. Normal calvarium. Normal size ventricles and extra-axial spaces for the patient''s age. Normal white matter tracts of the cerebral hemispheres. Normal basal ganglia and thalami. Normal brainstem. Normal cerebellum. There is no intracranial hemorrhage. Right posterior MCA territory hypoattenuation with questionable internal areas of hyperattenuation. Without significant mass effect or ex vacuo ventricular dilation. There are other chronic infarcts in the right frontal lobe and both occipital lobes. Normal visualized paranasal sinuses. Left mastoid effusion. ASPECT score: 6 CT/STROKE Brain/Head without Cont IMPRESSION: Posterior right MCA territory infarct, late acute to subacute. Left mastoid effusion. N.B. : The above Results were Read Back by Ezequiel Russ MD to Chapincito Luna MD, and understanding confirmed on 03/05/2021 05:45:44 (ET). Electronically Signed: Ezequiel Russ MD at 5:49 EDT Tel , Service support ,
--- NOTE | 2021-03-05 05:25 | CT_ITS ---
We are attempting to reach an attending provider to discuss findings. An addendum with communication details will be sent when the communication is complete. STUDY: CTA HEAD AND NECK WITH CONTRAST REASON FOR EXAM: Female, 60 years old. STROKE RADIATION DOSAGE (If Supplied By Facility): CTDIvol = ( 13.25 ) mGy, DLP = ( 693.01 ) mGycm TECHNIQUE: CT angiography was performed with a multi-detector CT scanner. Data acquisition was obtained from the skull base through the vertex following intravenous administration of IV 100mL Isovue-370. MIP images were reconstructed from the axial data set. Post-processing of the angiographic images was performed, with multiplanar reformation and 3D reconstruction. Individualized dose optimization techniques were used for this CT. COMPARISON: No relevant priors. FINDINGS: Normal bilateral petrous carotid arteries. Normal right cavernous carotid artery with a normal supraclinoid bifurcation. Normal left cavernous carotid artery with a normal supraclinoid bifurcation. Normal right A1 segments of the anterior cerebral artery. Normal left A1 segments of the anterior cerebral artery. Normal intact anterior communicating artery (ACOM). Normal bilateral A2 segments of the anterior cerebral arteries. Normal right M1 and M2 segments of the middle cerebral arteries, with a normal M1 bifurcation. Normal left M1 and M2 segments of the middle cerebral arteries, with a normal M1 bifurcation. There is decreased perfusion in the distal right MCA segments. No extravasation into the dominant right posterior MCA infarct. There is a persistent origin of the right posterior cerebral artery with absence of the posterior communicating artery (PCOM). Normal left posterior communicating artery (PCOM). Right vertebral artery terminates as PICA. Normal basilar artery with a normal basilar bifurcation. The visualized bilateral superior cerebellar (SCA) arteries are normal. Normal bilateral P1, P2 and visualized P3 segments of the posterior cerebral arteries. There is no demonstrated aneurysm of the [place]. Multiple infarcts redemonstrated. AORTIC ARCH: Normal visualized aortic arch. Normal origins of the brachiocephalic, left common carotid, and left subclavian arteries. RIGHT CAROTID ARTERIES: Normal right common carotid artery (CCA). There is mild atherosclerotic plaque formation with minimal narrowing of the right carotid bulb. Normal origin of the right internal carotid (ICA) artery without a hemodynamically significant stenosis. Normal visualized cervical portion of the right internal carotid artery. Normal origin of the right external carotid artery (ECA). LEFT CAROTID ARTERIES: Normal left common carotid artery (CCA). There is mild atherosclerotic plaque formation with minimal narrowing of the left carotid bulb. Normal origin of the left internal carotid (ICA) artery without a hemodynamically significant stenosis. Normal visualized cervical portion of the left internal carotid artery. Normal origin of the left external carotid artery (ECA). VERTEBRAL ARTERIES: Normal bilateral vertebral arteries. Extensive subcutaneous emphysema redemonstrated in the chest and neck. Endotracheal tube and enteric catheter noted. CT/STROKE CTA Head AND Neck W/Con IMPRESSION: No stenosis, dissection, or aneurysm. No finding of extravasation into the posterior right MCA infarct. Electronically Signed: Ezequiel Russ MD at 6:06 EDT Tel , Service support ,
--- NOTE | 2021-03-05 05:54 | PN.CC_ITS ---
Assessment & Plan Assessment/Plan (1) COVID-19: PLAN: RECOMMENDATIONS: 1. Continue assist control mode of mechanical ventilation and wean FiO2/PEEP for saturations greater than 90%. 2. Continue to hold all sedating medications. 3. Continue Cardene infusion with cautious lowering of blood pressure. 4. Continue antimicrobials as ordered. 5. Continue tube feeds as tolerated. 6. Continue Decadron to complete 10-day treatment course. 7. Continue twice daily Lovenox. 8. Continue appropriate GI prophylaxis. 9. Ongoing goals of care discussion with the patient's family. IMPRESSIONS: 1. Acute hypoxemic respiratory failure secondary to COVID-19 pneumonia The patient has an unvaccinated status. Given her delayed presentation, she was not felt to be a candidate for remdesivir. Over the course of her early hospitalization, attempts to stabilize the patient on noninvasive positive pressure ventilatory support proved unsuccessful. The patient eventually required intubation on the morning of March 03. Plan to continue her on assist control mode of mechanical ventilation and wean FiO2 and PEEP to maintain oxygen saturations at or above 90%. Empiric antimicrobials will be continued to complete 7-day treatment course. Tube feeds will be continued as tolerated. Decadron will be continued to complete a 10-day treatment course. 2. Acute CVA The patient had an acute neurological change on the morning of March 05 in the setting of profound hypertension and was found to have a suspected posterior right MCA territory infarction. 3. Hypertensive emergency Continue Cardene infusion as ordered. Recommend slow, cautious lowering of blood pressure. 4. Pneumomediastinum We will attempt to limit airway pressures as tolerated. Continue supportive measures. Obtain repeat chest x-ray with any clinical decompensation. 5. SVT Resolved with pharmacologic intervention. 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 6. Diabetes mellitus Continue Lantus and sliding scale insulin coverage. 7. Anxiety/hypertension/obesity Complicates care, management, recovery and prognosis. Continue supportive measures as noted above. Overall, the patient's prognosis is quite poor. TIME: 40 minutes of critical care time, independent of procedures, was spent addressing the patient's acute hypoxemic respiratory failure secondary to COVID- 19 pneumonia, acute CVA, hypertensive emergency, pneumomediastinum, supraventric ular tachycardia, review of all data and collaboration with the care team. ([id number]) Subjective Subjective The patient was seen and examined at the bedside this morning. Events from the last 24 hours have been reviewed. Earlier this morning, nursing staff reported that there was an acute change in the patient's neurological status. Code stroke was called. The patient apparently became flaccid on the left side and would not withdrawal to pain. The patient was notably hypertensive at that time with systolics greater than [address] head revealed a posterior right MCA territory infarct. Follow-up CTA head and neck revealed no large vessel occlusion. The patient was subsequently placed on a Cardene infusion to control her hypertension. She remains on assist control mode of mechanical ventilation with an FiO2 requirement of 100% and PEEP of 12. She is documented to be overall net +3.2 L for the hospital admission. White count is elevated this morning to 25,000. AST and ALT are improving. Objective Data Objective Data The patient's most recent lab work, culture data and imaging studies have all been personally reviewed. Strep and urine Legionella antigens were negative. Sputum culture is currently growing staph aureus. Vital Signs: Vital Signs Temp Pulse Resp BP Pulse Ox 99.1 F 84 18 167/74 H 92 03/05/21 00:00 03/05/21 03:00 03/05/21 03:00 03/05/21 03:00 03/05/21 03:00 Oxygen Flow Rate (L/min) 65 Oxygen Delivery Method Mechanical Ventilator Weight: 92.3 kg Body Mass Index (BMI) 33.1 Intake & Output: Intake and Output for Last 24 Hours 03/03/21 03/04/21 03/05/21 23:59 23:59 23:59 Intake Total 1184.21 / 1260.81 1454.66 / 1483.86 90.1 / 90.1 Output Total 475 / 575 800 / 800 Balance 709.21 / 685.81 654.66 / 683.86 90.1 / 90.1 Lab / Micro Data Attestation: I reviewed the patient's lab results. Result Diagrams: 03/05/21 04:00 03/05/21 04:00 Labs: Laboratory Results - last 24 hr 03/04/21 04:50: Sodium 140, Potassium 4.5, Chloride 110 H, Carbon Dioxide 23.0, Anion Gap 7, BUN 62 H, Creatinine 1.41 H, Estim Creat Clear Calc 39.22, Est GFR (MDRD) Af Amer 49 L, Est GFR (MDRD) Non-Af 40 L, BUN/Creatinine Ratio 44.0 H, Glucose 330 H, Calcium 7.7 L, Phosphorus 3.5, Magnesium 2.5, Total Bilirubin 0.50, AST 2091 H, ALT 808 H, Alkaline Phosphatase 208 H, Total Protein 5.5 L, Albumin 1.3 L, Globulin 4.2, Albumin/Globulin Ratio 0.3 L 03/04/21 11:00: MRSA (PCR) Negative 03/04/21 13:00: POC Glucose 203 H 03/04/21 17:59: POC Glucose 199 H 03/04/21 20:55: POC Glucose 199 H 03/05/21 00:10: POC Glucose 254 H 03/05/21 04:00: WBC 24.9 H, RBC 4.52, Hgb 13.3, Hct 42.2, MCV 93.4, MCH 29.4, MCHC 31.5 L, RDW Std Deviation 49.9 H, RDW Coeff of Curt 14.6, Plt Count 192, MPV 10.2, Immature Gran % (Auto) 2.400 H, Neut % (Auto) 92.1 H, Lymph % (Auto) 2.0 L , [place] % (Auto) 3.2, Eos % (Auto) 0.0, Baso % (Auto) 0.3, Absolute Neuts (auto) 22.9 H, Absolute Lymphs (auto) 0.51 L, Nucleated RBC % 0 03/05/21 04:00: Sodium 141, Potassium 4.9, Chloride 111 H, Carbon Dioxide 25.0, Anion Gap 5, BUN 58 H, Creatinine 1.00, Estim Creat Clear Calc 55.31, Est GFR (MDRD) Af Amer 72, Est GFR (MDRD) Non-Af 60, BUN/Creatinine Ratio 58.0 H, Glucose 306 H, Calcium 8.2 L, Total Bilirubin 0.50, AST 610 H, ALT 585 H, Abi line Phosphatase 221 H, Total Protein 5.8 L, Albumin 1.5 L, Globulin 4.3 H, Albumin/Globulin Ratio 0.3 L Micro: Microbiology 03/03/21 10:50 Sputum, Induced/Lukens Gram Stain - Final 03/03/21 10:50 Sputum, Induced/Lukens Respiratory Culture - Preliminary Staphylococcus aureus 03/01/21 03:50 Urine, Clean Catch Streptococcus pneumoniae Antigen (M - Final 03/01/21 03:50 Urine, Clean Catch Legionella Antigen - Final Radiography Diagnostic Testing: Radiology Impression Liver Ultrasound 03/04/21 06:45 IMPRESSION: Nonvisualization of the gallbladder. Electronically Signed: Zeferino Duong MD at 14:10 EDT , Service support , Brain CT 03/05/21 04:51 IMPRESSION: Posterior right MCA territory infarct, late acute to subacute. Left mastoid effusion. N.B. : The above Results were Read Back by Ezequiel Russ MD to Chapincito Luna MD, and understanding confirmed on 03/05/2021 05:45:44 (ET). Electronically Signed: Ezequiel Russ MD at 5:49 EDT Tel , Service support , Physical Exam Const no apparent distress General Appearance: intubated and patient mechanically ventilated Nutritional Appearance: obese HEENT normocephalic and head/scalp atraumatic Mouth: endotracheal tube in place and OG tube in place Eyes conjunctivae normal Neck supple General: trachea midline Chest inspection of chest normal Chest Narrative: Crepitus present at base of neck. Resp Resp Narrative: No ventilator dyssynchrony. Agonal type respirations Auscultation: diminished lung sounds; Negative for rales, rhonchi or wheezes Cardio regular rate and regular rhythm GI normal to inspection, nondistended, normoactive bowel sounds Extremity no clubbing, cyanosis or edema Skin no rashes or lesions noted Neuro Neuro Narrative: Currently nonresponsive to verbal and noxious stimulation. Charges/Coding Procedures Hospitalists Procedures: [id number] Critial Care 1st Hr
--- NOTE | 2021-03-05 06:07 | PCM.PN.BLA ---
Progress Note During routine sedation break in the morning nursing staff noticed that she was withdrawing from pain on the right but not on the left so I was notified and recommended calling a stroke alert and proceeding with CT of the head. Stroke alert was called at 4:52AM and I arrived at bedside at around 4:55 AM. By the time I arrived she was no longer withdrawing from pain on either side. Unfortunately since she is Covid and intubated there is a little bit of a delay in getting her down to the CT scanner secondary to getting all the moving parts assembled including respiratory therapy to help with the vent and airway management. She was taken down to the CT scanner and was found to have a large right MCA territory stroke. In discussing the situation with [facility] neurology they felt that this was subacute, at least 6 hours old and therefore was not a TPA candidate with an NIH 23. Her last known well was yesterday morning prior to intubation. Can proceed with stroke protocol, prior to going down the son was notified that we were concerned that she had had a stroke, and he requested that everything be done. I called him this morning after the stroke alert and after discussing the case with [facility] neurology and updated him on her condition and possible prognosis, and he did not have any questions at this time. Critical care time including evaluation of the patient reviewing imaging and discussing the case with [facility] neurology and radiology, 45 minutes Procedures Hospitalists Procedures: [id number] Critial Care 1st Hr
--- NOTE | 2021-03-05 06:30 | ECHOD_ITS ---
Reason For Study: TIA/CVA Procedure This was a 2D Doppler, Color Flow transthoracic echocardiogram. The study was technically limited. Exam performed portable in ICU/CCU. The exam was abbreviated due to the COVID 19 protocol. Left Ventricle Normal left ventricle. The estimated ejection fraction is EF 55-60 %. Right Ventricle Normal right ventricle. Normal systolic function. Atria Normal left atrium. Normal right atrium. Mitral Valve The mitral valve is structurally normal. No prolapse or stenosis seen. Mild (1+) mitral valve insufficiency. Tricuspid Valve Normal tricuspid valve. Mild tricuspid valve insufficiency. Aortic Valve Normal aortic valve. Pulmonic Valve The pulmonic valve is not well visualized. Great Vessels Normal aortic root. Pericardium/Pleural No pericardial effusion. Medication Performed a rapid injection of agitated mix of 9 cc saline and 1cc air to assess for atrial septal defect. MMode/2D Measurements & Calculations LVIDd: 3.1 cm IVSd: 0.87 cm LVIDs: 2.2 cm LVPWd: 0.84 cm FS: 30.7 % Doppler Measurements & Calculations TR max taniya: 368.2 cm/sec TR max P.2 mmHg ECHO/Echo Complete Interpretation Summary The estimated ejection fraction is EF 55-60 %. Ordering Physician: Mitchell Galarza Performed By: Cici Horan, RDCS, RVT
[2021-03-05 06:56] LABS: Bedside Glucose 293 mg/dL (70-110)
--- NOTE | 2021-03-05 07:42 | PCM.RX.CS ---
Consult Type of Consult: New start Suspected Infection: Pneumonia Labs: Sodium 141 mmol/L (136-145) 03/05/21 04:00 Potassium 4.9 mmol/L (3.5-5.1) 03/05/21 04:00 Chloride 111 mmol/L (98-107) H 03/05/21 04:00 Carbon Dioxide 25.0 mmol/L (21.0-32.0) 03/05/21 04:00 Anion Gap 5 (5-15) 03/05/21 04:00 BUN 58 mg/dL (7-18) H 03/05/21 04:00 Creatinine 1.00 mg/dL (0.55-1.02) 03/05/21 04:00 Est GFR (MDRD) Af Amer 72 mL/min (>60) 03/05/21 04:00 Est GFR (MDRD) Non-Af 60 mL/min (>60) 03/05/21 04:00 BUN/Creatinine Ratio 58.0 RATIO (10-20) H 03/05/21 04:00 Glucose 306 mg/dL (74-106) H 03/05/21 04:00 Microbiology: Microbiology 03/03/21 10:50 Sputum, Induced/Lukens Gram Stain - Final 03/03/21 10:50 Sputum, Induced/Lukens Respiratory Culture - Preliminary Staphylococcus aureus 03/01/21 03:50 Urine, Clean Catch Streptococcus pneumoniae Antigen (M - Final 03/01/21 03:50 Urine, Clean Catch Legionella Antigen - Final Goal Trough: 15-20 mcg/mL Pharmacy Plan for Drug Dosing: NEW START IV VANCOMYCIN Consulting Physician: Erwin BOLES Indication: COVID PNA Goal Trough: 15-20 SrCr: 1.00 CrCl: 55 ML/MIN Comments: LOADING DOSE 2000MG X1 @ 0700 03/05/21 Vancomcyin Dose: 1000MG Q12H TO START @ 1900 03/05/21 Pending Level: 03/13/21 @ 1830 Pharmacy Service will continue to monitor and adjust dosing as required. Follow-Up Labs: Trough Vancomycin Labs to be done on [date and time ordered]: 03/06/21 1830 VANCOMYCIN LEVEL
[2021-03-05 08:46] LABS: Allen Test Positive; Base Excess -3 mmol/L (-2 to +2); Bicarbonate 24.6 mmol/L (22-26); Blood Gas Specimen Type ART; FI02 90; Mode AC; O2 Delivery Device Adult Vent; PEEP 12; PO2 70 mmHG (75-100); RR 16; SO2 90 % (95-99); Total Carbon Dioxide 26 mmol/L; Vt 400; pCO2 57.4 mmHg (35-45); pH 7.24 (7.35-7.45)
--- NOTE | 2021-03-05 08:47 | NURSING ---
0445-At bedside assessing patient. When administering painful stimuli to extremities the left side was flaccid. Pupils are 2mm, round and sluggish. Sedation was paused at 0430 to see how patient would respond. 0452- STEMI ALERT was called. Dr. Luna was updated on patient's condition and Dr. Galarza was called to update on patient's change in condition. Initial NIH was 27. Patient was prepared for CT scan 455- Dr. Luna is at beside assessing patient. [facility] is being called. 0500- RNs, RT, and Dr. Luna are ready for transport and patient is taking down to CT scan. Once scans are completed [facility] is filled in on patient's condition, scan results, and patient's history. Patient was not a canidate for tPA so patient was brought back to unit. Patient's son Faheem is called and updated on events and condition of patient. He states that he still wants everything done. 0545- Patient is back to unit and settled back in room and connected to bedside monitor. Dr. Galarza is updated on scan results and overnight events.
[2021-03-05] MEDS: Enoxaparin 30 MG/0.3 ML Syringe SC ×2 (10:01→20:34)
[2021-03-05] MEDS: Lansoprazole 15 MG Capsule.DR 30 MG NG (10:01)
[2021-03-05] MEDS: CHLORHEXIDINE GLUC 2% CLOTH 1 EACH TOWELETTE TOPICAL (10:01)
[2021-03-05] MEDS: dexAMETHasone 10 MG/ML Vial 6 MG IV (10:01)
[2021-03-05] MEDS: 0.9% Saline Lock 10 ML Syringe IV ×2 (10:05→18:27)
[2021-03-05] MEDS: Chlorhexidine 15 ML PO ×2 (10:07→20:37)
--- NOTE | 2021-03-05 10:51 | CASEMGMT ---
SW spoke w/RN, she has reached out to pt's sons and brother, at this point none of them are able to come in to the hospital. Pt's brother was going to reach out to son Faheem. SW called son Faheem. He did speak w/pt's brother. He still is not able to come in, states his next day off is on Monday. Son states he has vacation time next week, and his employer will not let him take time off to come to the hospital to see pt. SW inquired if he would be willing to speak w/the physician, he states he would. SW spoke w/physician, he will reach out to son as time allows. BELIA Douglas
--- NOTE | 2021-03-05 11:08 | CPS ---
ABG results given to Dr. Galarza
[2021-03-05 11:20] LABS: Bedside Glucose 306 mg/dL (70-110)
--- NOTE | 2021-03-05 12:33 | PCM.PN.HOSP ---
Subjective Subjective Overnight event noted and I talked to our night time hospitalist colleague regarding right large MCA territory stroke. The patient was noticed withdrawing from the pain on the right but not on the left when she had sedation break. Later on CT head was done and found to have large right MCA territory stroke. The patient was hypertensive at that time with systolic more than 200 mmHg. Follow-up CT angiogram head and neck did not show large vessel occlusion. [facility] neurology was consulted and was impression was she is not a candidate for TPA with NIHSS 23 and probably subacute. Subsequently she is on nicardipine drip. Remains on ventilator 90-100 percent FiO2 and PEEP 12. Patient's family members wants full code and discuss with the still operator batch or continuous. Objective Data Objective Data Vital Signs: Vital Signs Temp Pulse Resp BP Pulse Ox 99.4 F H 91 22 H 161/71 H 93 03/05/21 11:00 03/05/21 11:00 03/05/21 11:00 03/05/21 11:00 03/05/21 11:00 Oxygen Flow Rate (L/min) 100 Oxygen Delivery Method Mechanical Ventilator Weight: 204 lb 2.369 oz Body Mass Index (BMI) 33.1 Intake & Output: Intake and Output for Last 24 Hours 03/03/21 03/04/21 03/05/21 23:59 23:59 23:59 Intake Total 1184.21 / 1260.81 1454.66 / 1483.86 1630.52 / 1630.52 Output Total 475 / 575 800 / 800 1190 / 1190 Balance 709.21 / 685.81 654.66 / 683.86 440.52 / 440.52 Lab / Micro Data Result Diagrams: 03/05/21 04:00 03/05/21 04:00 Labs: Laboratory Results - last 24 hr 03/04/21 11:00: MRSA (PCR) Negative 03/04/21 13:00: POC Glucose 203 H 03/04/21 17:59: POC Glucose 199 H 03/04/21 20:55: POC Glucose 199 H 03/05/21 00:10: POC Glucose 254 H 03/05/21 04:00: WBC 24.9 H, RBC 4.52, Hgb 13.3, Hct 42.2, MCV 93.4, MCH 29.4, MCHC 31.5 L, RDW Std Deviation 49.9 H, RDW Coeff of Curt 14.6, Plt Count 192, MPV 10.2, Immature Gran % (Auto) 2.400 H, Neut % (Auto) 92.1 H, Lymph % (Auto) 2.0 L, Orange % (Auto) 3.2, Eos % (Auto) 0.0, Baso % (Auto) 0.3, Absolute Neuts (auto) 22.9 H, Absolute Lymphs (auto) 0.51 L, Nucleated RBC % 0 03/05/21 04:00: Sodium 141, Potassium 4.9, Chloride 111 H, Carbon Dioxide 25.0, Anion Gap 5, BUN 58 H, Creatinine 1.00, Estim Creat Clear Calc 55.31, Est GFR (MDRD) Af Amer 72, Est GFR (MDRD) Non-Af 60, BUN/Creatinine Ratio 58.0 H, Glucose 306 H, Calcium 8.2 L, Total Bilirubin 0.50, AST 610 H, ALT 585 H, Alkaline Phosphatase 221 H, Total Protein 5.8 L, Albumin 1.5 L, Globulin 4.3 H, Albumin/Globulin Ratio 0.3 L 03/05/21 06:50: POC Glucose 293 H 03/05/21 11:16: POC Glucose 306 H Micro: Microbiology 03/03/21 10:50 Sputum, Induced/Lukens Gram Stain - Final 03/03/21 10:50 Sputum, Induced/Lukens Respiratory Culture - Final Staphylococcus aureus 03/01/21 03:50 Urine, Clean Catch Streptococcus pneumoniae Antigen (M - Final 03/01/21 03:50 Urine, Clean Catch Legionella Antigen - Final ABG Data ABG results: ABG 03/05/21 08:40 Specimen Type ART pH 7.24 L Bicarbonate Actual 24.6 Total CO2 26 Base Excess -3 L O2 Saturation 90 L O2 % 90 ABG pCO2 57.4 H ABG pO2 70 L Damion Test Positive Respiration Rate 16 O2 Delivery Device Adult Vent Vent Mode AC Tidal Volume 400 POC PEEP 12 Radiography Diagnostic Testing: Radiology Impression Liver Ultrasound 03/04/21 06:45 IMPRESSION: Nonvisualization of the gallbladder. Electronically Signed: Zeferino Duong MD at 14:10 EDT , Service support , Brain CT 03/05/21 04:51 IMPRESSION: Posterior right MCA territory infarct, late acute to subacute. Left mastoid effusion. N.B. : The above Results were Read Back by Ezequiel Russ MD to Chapincito Luna MD, and understanding confirmed on 03/05/2021 05:45:44 (ET). Electronically Signed: Ezequiel Russ MD at 5:49 EDT Tel , Service support , ADDENDUM: 03/05/21 0557 IMPRESSION: Posterior right MCA territory infarct, late acute to subacute. Left mastoid effusion. N.B. : The above Results were Read Back by Ezequiel Russ MD to Chapincito Luna MD, and understanding confirmed on 03/05/2021 05:45:44 (ET). Electronically Signed: Ezequiel Russ MD at 5:49 EDT Tel , Service support , Head/Neck CTA 03/05/21 05:25 IMPRESSION: No stenosis, dissection, or aneurysm. No finding of extravasation into the posterior right MCA infarct. Electronically Signed: Ezequiel Russ MD at 6:06 EDT Tel , Service support , ADDENDUM: 03/05/21 0615 IMPRESSION: No stenosis, dissection, or aneurysm. No finding of extravasation into the posterior right MCA infarct. N.B. : The above Results were Read Back by Ezequiel Russ MD to Benji Esparza RN, and understanding confirmed on 03/05/2021 06:08:23 (ET). Electronically Signed: Ezequiel Russ MD at 6:06 EDT Tel , Service support , Physical Exam Narrative General: Intubated on volume control mode. Sedation medications are on hold HEENT: Atraumatic, PERRLA, EOMI, Normocephalic Oral: ET AND OG tube. Neck: Subcutaneous crepitations palpable in neck, supraclavicular and upper chest. No JVD, Negative Carotid Bruits Lungs: On vent support AC mode. Air entry diminished in bilateral lung bases. No crepitation Cardiovascular: Sinus rhythm, heart rate controlled. Normal S1, Normal S2, No murmurs Abdomen: Bowel Sounds Present, Soft, Non Tender, Non-Distended : Og catheter. No renal angle tenderness. No suprapubic tenderness. Extremities: Mild ankle edema, Capillary Refill Less than 3 Seconds Skin: No rashes, No breakdown Musculoskeletal: No Tenderness to Palpation of Joints or Extremities Neurological: Cranial nerves II-XII grossly intact, Psych/Mental Status: On ventilator Assessment & Plan Assessment/Plan (1) Respiratory failure: QUALIFIERS: Chronicity: acute Respiratory failure complication: hypoxia Qualified Code(s): J96.01 - Acute respiratory failure with hypoxia (2) COVID-19: PLAN: This 60-year-old female with multiple comorbidities admitted with 2-week history of progressive worsening of weakness, shortness of breath, dry cough, postnasal drip. She was found severely hypoxic and tachypneic, in acute hypoxic respiratory failure and was directly admitted from [facility] nonrebreather mask 1. Acute hypoxemic respiratory failure secondary to bilateral COVID-19 pneumonia with pneumomediastinum and subcutaneous emphysema: The patient is unvaccinated. Patient is admitted in ICU. Seen by still operator batch or continuous. Currently on BiPAP. On Precedex drip as patient was trying to remove BiPAP mask. On Decadron. Not candidate for remdesivir as out of window. Supportive treatment with mucolytic, Pep and bronchodilator. 03/02: Continue BiPAP/AVAPS support. On Precedex drip. 03/03: Patient is intubated because of increased work of breathing, PSVT. Chest x-ray shows pneumomediastinum with subcutaneous emphysema. 03/04: Mechanical ventilator management as per still operator batch or continuous. Initial preliminary sputum culture shows staph aureus, rare growth. 03/05: Patient remains on high FiO2 requirement with PEEP of 12. Right large MCA subacute ischemic stroke with hypertensive emergency: No large vessel occlusion found on CT angiogram. Patient on nicardipine drip. 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 Not responsive to adenosine and metoprolol IV. Discussed with the x ray service engineer and advised to control with beta-omar and calcium omar. Patient does not have prior cardiac history. 03/04: Currently heart rhythm is sinus rhythm. Heart rate is controlled. 03/05: On amiodarone drip. Heart rate is controlled. 2. Bilateral COVID-19 pneumonia: As mentioned above 3. Diabetes mellitus: Accu-Cheks insulin coverage block sliding scale. On basal insulin. 03/02: Blood sugar is elevated between 265-308. Insulin dose titrated up 03/03: Glucose about 200. 4. DVT prophylaxis Subcutaneous Lovenox 30 mg twice daily. I gave phone call to patient's son Faheem Sexton, [phone]. I informed him about group leader [employer] processing right MCA stroke and clinical update. I also informed that his poor prognosis on maximum vent setting another IV infusion need of critical medications. He still wants to continue as full code. Charges/Coding Visit Charges Inpatient E&M: 45207 [facility] Hosp L3
[2021-03-05 17:25] LABS: Bedside Glucose 291 mg/dL (70-110)
[2021-03-05] MEDS: Vancomycin IV 1,000 MG/200 ML BAG 200 MG IV (18:10)
[2021-03-05] MEDS: Metoprolol Tartrate 5 MG/5 ML Vial IV (18:26)
--- NOTE | 2021-03-05 18:26 | PCM.HOSP.N ---
Hospitalist Note Patient with persistent S VT with hypertension. Discussed patient status with ICU physician Dr. Galarza. Patient cardioverted x3 with a each time return to SVT within seconds. Repeat BP assessment improved. Will administer Lopressor 5 mg IV x1 now and requested initiation of amiodarone drip concurrently. Patient had previously received adenosine without any effect. Dr. Galarza made aware and agreeable to plan.
--- NOTE | 2021-03-05 18:28 | NURSING ---
1809: Dr. Hou at bedside for cardioversion. Sync. cardioversion at 50J x1, converted to ST, HR 115 briefly then back to 170's. 1814: 2nd shock delivered at 100J, Converted to ST w/ PACs briefly then back to 170's 1816: 3rd shock delivered at 150J w/ same results. HR 170's, BP 119/60. Amio drip and IV lopressor ordered by Dr. Hou
[2021-03-05] MEDS: Amiodarone 360 MG in Dextrose 5% Viaflo Bag 192.8 ML 16.7 MG CONT INF (18:45)
[2021-03-05] MEDS: Acetaminophen 650 MG/20 ML UDC GT (20:34)
[2021-03-05] MEDS: Metoprolol Tartrate 25 MG Tablet GT (20:36)
[2021-03-05 23:01] LABS: Bedside Glucose 433 mg/dL (70-110)
[2021-03-06] VITALS (39 sets, daily range): BP systolic 110–197; BP diastolic 60–93; PULSE 83–113; RESP 16–34; TEMP 37.8–38.8; O2SAT 90–96
[2021-03-06] MEDS: hydrALAZINE 20 MG/ML Vial 10 MG IV ×4 (01:09→17:49)
[2021-03-06] MEDS: Vital AF 1.2 Cal Liquid 1,000 ML 65 ML GT ×2 (01:58→16:29)
[2021-03-06] MEDS: Labetalol (Prefilled) 20 MG/4 ML 10 MG IV ×2 (02:43→13:11)
[2021-03-06] MEDS: Acetaminophen 650 MG/20 ML UDC GT ×2 (02:43→21:27)
--- NOTE | 2021-03-06 04:55 | PN.CC_ITS ---
Assessment & Plan Assessment/Plan (1) COVID-19: PLAN: RECOMMENDATIONS: 1. Continue assist control mode of mechanical ventilation and wean FiO2/PEEP for saturations greater than 90%. 2. Continue to hold all sedating medications. 3. Obtain neurology consultation. 4. Recheck morning labs along with ammonia and TSH. 5. Obtain repeat arterial blood gas. 6. Continue cefepime. Discontinue vancomycin. 7. Continue tube feeds as tolerated. 8. Continue Decadron to complete 10-day treatment course. 9. Continue twice daily Lovenox. 10. Continue appropriate GI prophylaxis. 11. Ongoing goals of care discussion with the patient's family. IMPRESSIONS: 1. Acute hypoxemic respiratory failure secondary to COVID-19 pneumonia The patient has an unvaccinated status. Given her delayed presentation, she was not felt to be a candidate for remdesivir. Over the course of her early hospitalization, attempts to stabilize the patient on noninvasive positive pressure ventilatory support proved unsuccessful. The patient eventually required intubation on the morning of March 03. Plan to continue her on assist control mode of mechanical ventilation and wean FiO2 and PEEP to maintain oxygen saturations at or above 90%. Antimicrobials will be continued to complete 7-day treatment course. Tube feeds will be continued as tolerated. Decadron will be continued to complete a 10-day treatment course. Twice daily Lasix will be initiated today. 2. Acute CVA The patient had an acute neurological change on the morning of March 05 in the setting of profound hypertension and was found to have a posterior right MCA territory infarction. The patient remains encephalopathic, which is felt to be the consequence of her underlying CVA. However, will obtain neurology consultation today and check TSH, ammonia and repeat arterial blood gas. 3. Hypertensive emergency Continue labetalol/hydralazine. Cardene can be reinstituted if needed. 4. Pneumomediastinum We will attempt to limit airway pressures as tolerated. Continue supportive measures. Obtain repeat chest x-ray with any clinical decompensation. 5. SVT Resolved with pharmacologic intervention. 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 Continue amiodarone and beta-omar regimen. 6. Diabetes mellitus Continue Lantus and sliding scale insulin coverage. 7. Anxiety/hypertension/obesity Complicates care, management, recovery and prognosis. Continue supportive measures as noted above. Overall, the patient's prognosis is quite poor. TIME: 34 minutes of critical care time, independent of procedures, was spent addressing the patient's acute hypoxemic respiratory failure secondary to COVID- 19 pneumonia, acute CVA, hypertensive emergency, pneumomediastinum, supraventricular tachycardia, review of all data and collaboration with the care team. ([id number]) Subjective Subjective The patient was seen and examined at the bedside this morning. Events from the last 24 hours have been reviewed. The patient continues to have low-grade fevers. She remains otherwise hemodynamically stable. Last evening, the patient once again went into SVT. She did develop hypotension and subsequently required cardioversion. She was placed back on amiodarone and metoprolol was restarted. She is currently maintaining appropriate oxygen saturations on assist control mode mechanical ventilation with an FiO2 requirement of 85% and PEEP of 12. Despite being off of all forms of sedation for the last 24 hours, the patient remains nonresponsive. She is currently documented to be overall net +3.7 L for the hospital admission. Objective Data Objective Data The patient's most recent lab work, culture data and imaging studies have all been personally reviewed. Strep and urine Legionella antigens were negative. Sputum culture demonstrated growth of MSSA. Vital Signs: Vital Signs Temp Pulse Resp BP Pulse Ox 100.5 F H 90 26 H 159/65 H 94 03/06/21 04:00 03/06/21 04:00 03/06/21 04:00 03/06/21 04:00 03/06/21 04:00 Oxygen Flow Rate (L/min) 100 Oxygen Delivery Method Mechanical Ventilator Weight: 92.6 kg Body Mass Index (BMI) 33.1 Intake & Output: Intake and Output for Last 24 Hours 03/04/21 03/05/21 03/06/21 23:59 23:59 23:59 Intake Total 1454.66 / 1483.86 2800.77 / 3025.77 475 / 475 Output Total 800 / 800 1865 / 2415 550 / 550 Balance 654.66 / 683.86 935.77 / 610.77 -75 / -75 Lab / Micro Data Result Diagrams: 03/05/21 04:00 03/05/21 04:00 Labs: Laboratory Results - last 24 hr 03/05/21 06:50: POC Glucose 293 H 03/05/21 11:16: POC Glucose 306 H 03/05/21 17:09: POC Glucose 291 H 03/05/21 22:18: POC Glucose 433 H Micro: Microbiology 03/03/21 10:50 Sputum, Induced/Lukens Gram Stain - Final 03/03/21 10:50 Sputum, Induced/Lukens Respiratory Culture - Final Staphylococcus aureus 03/01/21 03:50 Urine, Clean Catch Streptococcus pneumoniae Antigen (M - Final 03/01/21 03:50 Urine, Clean Catch Legionella Antigen - Final ABG Data ABG results: ABG 03/05/21 08:40 Specimen Type ART pH 7.24 L Bicarbonate Actual 24.6 Total CO2 26 Base Excess -3 L O2 Saturation 90 L O2 % 90 ABG pCO2 57.4 H ABG pO2 70 L Damion Test Positive Respiration Rate 16 O2 Delivery Device Adult Vent Vent Mode AC Tidal Volume 400 POC PEEP 12 Radiography Diagnostic Testing: Radiology Impression Brain CT 03/05/21 04:51 IMPRESSION: Posterior right MCA territory infarct, late acute to subacute. Left mastoid effusion. N.B. : The above Results were Read Back by Ezequiel Russ MD to Chapincito Luna MD, and understanding confirmed on 03/05/2021 05:45:44 (ET). Electronically Signed: Ezequiel Russ MD at 5:49 EDT Tel , Service support , ADDENDUM: 03/05/21 0557 IMPRESSION: Posterior right MCA territory infarct, late acute to subacute. Left mastoid effusion. N.B. : The above Results were Read Back by Ezequiel Russ MD to Chapincito Luna MD, and understanding confirmed on 03/05/2021 05:45:44 (ET). Electronically Signed: Ezequiel Russ MD at 5:49 EDT Tel , Service support , Head/Neck CTA 03/05/21 05:25 IMPRESSION: No stenosis, dissection, or aneurysm. No finding of extravasation into the posterior right MCA infarct. Electronically Signed: Ezequiel Russ MD at 6:06 EDT Tel , Service support , ADDENDUM: 03/05/2115 IMPRESSION: No stenosis, dissection, or aneurysm. No finding of extravasation into the posterior right MCA infarct. N.B. : The above Results were Read Back by Ezequiel Russ MD to Benji Esparza RN, and understanding confirmed on 03/05/2021 06:08:23 (ET). Electronically Signed: Ezequiel Russ MD at 6:06 EDT Tel , Service support , Echocardiogram 03/05/21 06:30 Interpretation Summary The estimated ejection fraction is EF 55-60 %. Ordering Physician: Mitchell Galarza Performed By: Cici Horan RDCS, RVT Physical Exam Const no apparent distress Constitutional Narrative: Not on any continuous sedative medications. General Appearance: intubated and patient mechanically ventilated Nutritional Appearance: obese HEENT normocephalic and head/scalp atraumatic Mouth: endotracheal tube in place and OG tube in place Eyes conjunctivae normal Neck supple General: trachea midline Chest inspection of chest normal Chest Narrative: Crepitus present at base of neck. Resp Resp Narrative: No ventilator dyssynchrony. Agonal type respirations Auscultation: diminished lung sounds; Negative for rales, rhonchi or wheezes Cardio regular rate and regular rhythm GI normal to inspection, nondistended, normoactive bowel sounds Extremity Extremity Narrative: Upper extremity swelling at the site of previously placed PICC line General Extremity: edema; Negative for clubbing Skin no rashes or lesions noted Neuro Neuro Narrative: Currently nonresponsive to verbal and noxious stimulation. Charges/Coding Procedures [facility]ists [facility]: [id number]
--- NOTE | 2021-03-06 05:50 | TELEMED_ITS ---
[facility] Tele[facility] has confirmed receipt of a request for visit. This document confirms receipt of the order initiating the consult. To find the results of the consultation, please view the patient's reports for the scanned Telemed Consult.
[2021-03-06] MEDS: Insulin Lispro 100 UNIT/ML INSULN.PEN SC ×3 (06:17→17:50)
[2021-03-06] MEDS: Amiodarone 360 MG in Dextrose 5% Viaflo Bag 192.8 ML 16.7 MG CONT INF ×2 (06:18→17:51)
[2021-03-06 06:26] LABS: Bedside Glucose 429 mg/dL (70-110)
--- NOTE | 2021-03-06 06:33 | NURSING ---
Swelling noted to right upper arm, Dr Galarza notified. Order given to remove PICC line and have copy center operator place PICC in left upper extremity. Will continue to monitor.
--- NOTE | 2021-03-06 06:55 | NURSING ---
PICC line removed completely intact, pressure dressing placed over site. Will continue to monitor.
--- NOTE | 2021-03-06 06:56 | NURSING ---
Swelling noted to right upper extremity at old PICC line site , largest area noted to be 19.5 inches in diameter.
--- NOTE | 2021-03-06 07:35 | NURSING ---
boat patcher plastic notified of PICC line order, whirley operator states they will call back shortly with an update on time Dr Galarza and primary nurse notified.
[2021-03-06] MEDS: 0.9% Saline Lock 10 ML Syringe IV ×2 (08:37→17:52)
[2021-03-06 08:52] LABS: Absolute Lymphocyte Count 0.48 X10^3/uL (0.83-4.51); Absolute Neutrophil Count 28.8 X10^3/uL (2.0-7.7); Basophil# 0.12 X10^3/uL; Basophil% 0.4 % (0-1); Hematocrit 46.7 % (37-47); Hemoglobin 14.4 g/dL (12.0-15.0); Lymphocyte # 0.48 X10^3/ul (0.83-4.51); Lymphocyte % 1.5 % (19-41); Mean Corp Hgb Conc 30.8 g/dL (32-36); Mean Platelet Vol. 10.6 fl (6.2-12.0); Monocyte# 1.07 X10^3/uL; Monocyte% 3.4 % (0-10); NRBC Flagged by Analyzer 0.1 % (0-5); Neutrophil # 28.77 X10^3/uL (2.7-7.7); Neutrophil % 92.7 % (47-70); POSITIVE COUNT YES; POSITIVE DIFFERENTIAL YES; Platelet Count 256 K/mm3 (150-450); RBC Distribution Width CV 14.6 % (11.6-14.6); RBC Distribution Width SD 51.6 fl (35.1-43.9); Red Blood Count 4.97 M/mm3 (4.2-5.4)
[2021-03-06 09:14] LABS: ALB/GLOB Ratio 0.3 RATIO (0.9-2.4); AST(SGOT) 155 U/L (15-37); Alanine Aminotransfer ALT/SGPT 342 U/L (13-56); Albumin, Serum 1.4 g/dL (3.2-5.0); Alkaline Phosphatase 226 U/L (45-117); Anion Gap 2 (5-15); BUN 52 mg/dL (7-18); BUN/Creat Ratio 54.1 RATIO (10-20); Calcium,Total 8.6 mg/dL (8.5-10.1); Chloride 117 mmol/L (98-107); Creatinine, Serum 0.96 mg/dL (0.55-1.02); EST Glomerular Filtration Rate 63 mL/min (>60); Est Glom Filt Rate - Afr Amer 76 mL/min (>60); Estimated Creatinine Clearance 57.61 ml/min; Glucose 487 mg/dL (74-106); Potassium 4.4 mmol/L (3.5-5.1); Protein, Total 6.4 g/dL (6.4-8.2); Sodium Level 147 mmol/L (136-145); Thyroid Stim Hormone (TSH) 0.13 uIU/mL (0.358-3.74)
[2021-03-06 09:35] LABS: Allen Test Positive; Base Excess 0 mmol/L (-2 to +2); Blood Gas Specimen Type ART; FI02 80; Mode AC; O2 Delivery Device Adult Vent; PEEP 12; PO2 76 mmHG (75-100); RR 16; SITE L Radial; SO2 92 % (95-99); Total Carbon Dioxide 29 mmol/L; Vt 400; pCO2 60.5 mmHg (35-45); pH 7.26 (7.35-7.45)
[2021-03-06] MEDS: Chlorhexidine 15 ML PO ×2 (09:57→21:26)
[2021-03-06] MEDS: Metoprolol Tartrate 25 MG Tablet GT ×2 (09:58→21:28)
[2021-03-06] MEDS: CHLORHEXIDINE GLUC 2% CLOTH 1 EACH TOWELETTE TOPICAL (09:58)
[2021-03-06] MEDS: Furosemide 40 MG/4 ML Vial IV ×2 (09:59→17:46)
[2021-03-06] MEDS: Enoxaparin 30 MG/0.3 ML Syringe SC ×2 (09:59→21:27)
[2021-03-06] MEDS: Lansoprazole 15 MG Capsule.DR 30 MG NG (09:59)
[2021-03-06] MEDS: dexAMETHasone 10 MG/ML Vial 6 MG IV (09:59)
[2021-03-06 10:07] LABS: Differential Indicated SCAN CRITERIA MET; White Blood Count 31.1 K/mm3 (4.4-11.0)
[2021-03-06 10:27] LABS: Differential Comment SCANNED
[2021-03-06 12:36] LABS: Bedside Glucose 472 mg/dL (70-110)
--- NOTE | 2021-03-06 12:40 | PN.HOSP_ITS ---
Subjective Subjective Patient has persistent fever about 100.5 Fahrenheit, T-max 100.9 Fahrenheit. Still on vent support, antibiotic, antihypertensive and amiodarone drip Objective Data Objective Data Vital Signs: Vital Signs Temp Pulse Resp BP Pulse Ox 100.0 F H 83 22 H 176/72 H 93 03/06/21 11:00 03/06/21 11:00 03/06/21 11:00 03/06/21 11:00 03/06/21 11:00 Oxygen Flow Rate (L/min) 100 Oxygen Delivery Method Mechanical Ventilator Weight: 206 lb 2.115 oz Body Mass Index (BMI) 33.1 Intake & Output: Intake and Output for Last 24 Hours 03/04/21 03/05/21 03/06/21 23:59 23:59 23:59 Intake Total 1454.66 / 1483.86 2800.77 / 3025.77 2055.89 / 2055.89 Output Total 800 / 800 1865 / 2415 2800 / 2800 Balance 654.66 / 683.86 935.77 / 610.77 -744.11 / -744.11 Lab / Micro Data Result Diagrams: 03/06/21 08:28 03/06/21 08:28 Labs: Laboratory Results - last 24 hr 03/05/21 17:09: POC Glucose 291 H 03/05/21 22:18: POC Glucose 433 H 03/06/21 05:38: POC Glucose 429 H 03/06/21 08:28: WBC 31.1 H*, RBC 4.97, Hgb 14.4, Hct 46.7, MCV 94.0, MCH 29.0, MCHC 30.8 L, RDW Std Deviation 51.6 H, RDW Coeff of Curt 14.6, Plt Count 256, MPV 10.6, Immature Gran % (Auto) 2.000 H, Neut % (Auto) 92.7 H, Lymph % (Auto) 1.5 L , [place] % (Auto) 3.4, Eos % (Auto) 0.0, Baso % (Auto) 0.4, Absolute Neuts (auto) 28.8 H, Absolute Lymphs (auto) 0.48 L, Nucleated RBC % 0.1, Differential Comment SCANNED, Diff Path Review October03/06/21 08:28: Sodium 147 H, Potassium 4.4, Chloride 117 H, Carbon Dioxide 28.0, Anion Gap 2 L, BUN 52 H, Creatinine 0.96, Estim Creat Clear Calc 57.61, Est GFR (MDRD) Af Amer 76, Est GFR (MDRD) Non-Af 63, BUN/Creatinine Ratio 54.1 H , Glucose 487 H*, Calcium 8.6, Total Bilirubin 0.50, AST 155 H, ALT 342 H, Alkaline Phosphatase 226 H, Total Protein 6.4, Albumin 1.4 L, Globulin 5.0 H, Albumin/Globulin Ratio 0.3 L, TSH 0.13 L 03/06/21 08:28: Ammonia 67.0 H 03/06/21 12:06: POC Glucose 472 H* Micro: Microbiology 03/03/21 10:50 Sputum, Induced/Lukens Gram Stain - Final 03/03/21 10:50 Sputum, Induced/Lukens Respiratory Culture - Final Staphylococcus aureus 03/01/21 03:50 Urine, Clean Catch Streptococcus pneumoniae Antigen (M - Final 03/01/21 03:50 Urine, Clean Catch Legionella Antigen - Final ABG Data ABG results: ABG 03/06/21 09:30 Specimen Type ART Sample Site L Radial pH 7.26 L Bicarbonate Actual 27.0 H Total CO2 29 Base Excess 0 O2 Saturation 92 L O2 % 80 ABG pCO2 60.5 H ABG pO2 76 Damion Test Positive Respiration Rate 16 O2 Delivery Device Adult Vent Vent Mode AC Tidal Volume 400 POC PEEP 12 Radiography Diagnostic Testing: Radiology Impression Echocardiogram 03/05/21 06:30 Interpretation Summary The estimated ejection fraction is EF 55-60 %. Ordering Physician: Mitchell Galarza Performed By: Cici Horan, CATHRYN, RVT Physical Exam Narrative General: Intubated on volume control mode. Sedation medications are on hold. HEENT: Atraumatic, PERRLA, EOMI, Normocephalic Oral: ET AND OG tube. Neck: Subcutaneous emphysema not palpable probably resolved. No JVD, Negative Carotid Bruits Lungs: On vent support AC mode. Air entry diminished in bilateral lung bases. No crepitation Cardiovascular: Sinus rhythm, heart rate controlled. Normal S1, Normal S2, No murmurs. BP high Abdomen: Bowel Sounds Present, Soft, Non Tender, Non-Distended : Og catheter. Dark urine. No renal angle tenderness. No suprapubic tenderness. Extremities: Mild ankle edema, Capillary Refill Less than 3 Seconds Skin: No rashes, No breakdown Musculoskeletal: No Tenderness to Palpation of Joints or Extremities Neurological: Cranial nerves II-XII grossly intact, Psych/Mental Status: On ventilator Assessment & Plan Assessment/Plan (1) Respiratory failure: QUALIFIERS: Chronicity: acute Respiratory failure complication: hypoxia Qualified Code(s): J96.01 - Acute respiratory failure with hypoxia (2) COVID-19: PLAN: This 60-year-old female with multiple comorbidities admitted with 2- week history of progressive worsening of weakness, shortness of breath, dry coug h, postnasal drip. She was found severely hypoxic and tachypneic, in acute hypoxic respiratory failure and was directly admitted from [facility] nonrebreather mask 1. Acute hypoxemic respiratory failure secondary to bilateral COVID-19 pneumonia with pneumomediastinum and subcutaneous emphysema: The patient is unvaccinated. Patient is admitted in ICU. Seen by ski production supervisor. Currently on BiPAP. On Precedex drip as patient was trying to remove BiPAP mask. On Decadron. Not candidate for remdesivir as out of window. Supportive treatment with mucolytic, Pep and bronchodilator. 03/02: Continue BiPAP/AVAPS support. On Precedex drip. 03/03: Patient is intubated because of increased work of breathing, PSVT. Chest x-ray shows pneumomediastinum with subcutaneous emphysema. 03/04: Mechanical ventilator management as per ski production supervisor. Initial preliminary sputum culture shows staph aureus, rare growth. 03/05: Patient remains on high FiO2 requirement with PEEP of 12. 03/06: Patient reports on high FiO2 vent support. Sedatives has been off. Patient is still not waking up. Right large MCA subacute ischemic stroke with hypertensive emergency: No large vessel occlusion found on CT angiogram. Patient on nicardipine drip. 03/06: Discussed with patient's son yesterday and he understand patient has a large stroke. Still wants full code. 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 Not responsive to adenosine and metoprolol IV. Discussed with the transportation maintenance specialist and advised to control with beta-omar and calcium omar. Patient does not have prior cardiac history. 03/04: Currently heart rhythm is sinus rhythm. Heart rate is controlled. 03/05: On amiodarone drip. Heart rate is controlled. 2. Bilateral COVID-19 pneumonia: As mentioned above 3. Diabetes mellitus: Accu-Cheks insulin coverage block sliding scale. On basal insulin. 03/02: Blood sugar is elevated between 265-308. Insulin dose titrated up 03/03: Glucose about 200. 4. DVT prophylaxis Subcutaneous Lovenox 30 mg twice daily. I talked to patient's son Faheem Sexton, [phone]. I informed him about pill maker right MCA stroke and clinical update. I also informed that his poor prognosis on maximum vent setting another IV infusion need of critical medications. He still wants to continue as full code. Poor prognosis Charges/Coding Visit Charges Inpatient E&M: 27193 Subs Hosp L3
[2021-03-06 17:50] LABS: Bedside Glucose 463 mg/dL (70-110)
[2021-03-06 21:51] LABS: Bedside Glucose 471 mg/dL (70-110)
--- NOTE | 2021-03-06 22:25 | RAD_ITS ---
STUDY: X-RAY CHEST REASON FOR EXAM: Female, 60 years old. Aspiration TECHNIQUE: Portable, symmetric, AP chest radiograph COMPARISON: 03/03/2021 FINDINGS: Endotracheal tube remains. Chest wall emphysema redemonstrated. Similar diffuse bilateral infiltrative opacities. There is no demonstrated pleural abnormality. Normal size heart. Normal mediastinum and mary. Normal visualized pulmonary arteries. Normal visualized aortic arch and descending thoracic aorta. There are diffuse degenerative changes of the visualized thoracic spine. There is degenerative osteoarthritis of the bilateral shoulders. There is no demonstrated abnormality of the visualized soft tissue structures of the upper abdomen. RAD/Chest 1 View (Portable) IMPRESSION: Enteric tube loops over the mid thoracic esophagus and terminates over the gastric fundus with sidehole above the diaphragm. Similar bilateral pulmonary infiltrates. Electronically Signed: Ezequiel Russ MD at 23:38 EDT Tel , Service support ,
[2021-03-06 23:56] LABS: Bedside Glucose 455 mg/dL (70-110)
[2021-03-07] VITALS (40 sets, daily range): BP systolic 85–198; BP diastolic 50–86; PULSE 74–187; RESP 16–36; TEMP 38.3–40; O2SAT 89–95
[2021-03-07] MEDS: Insulin Lispro 100 UNIT/ML INSULN.PEN SC ×5 (00:15→22:27)
--- NOTE | 2021-03-07 00:32 | RAD_ITS ---
STUDY: X-RAY - ABDOMEN/PELVIS REASON FOR EXAM: Female, 60 years old. OG Placement TECHNIQUE: Portable, upright, AP abdomen radiograph COMPARISON: None. RAD/Abdomen Single View (Portable) IMPRESSION: Enteric tube terminates over the distal stomach/duodenal bulb. Electronically Signed: Ezequiel Russ MD at 1:52 EDT Tel , Service support ,
[2021-03-07 04:33] LABS: Absolute Lymphocyte Count 0.67 X10^3/uL (0.83-4.51); Basophil# 0.15 X10^3/uL; Basophil% 0.4 % (0-1); Hematocrit 46.4 % (37-47); Hemoglobin 14.5 g/dL (12.0-15.0); Lymphocyte # 0.67 X10^3/ul (0.83-4.51); Lymphocyte % 1.9 % (19-41); Mean Corp Hgb Conc 31.3 g/dL (32-36); Mean Corpuscular Hgb 29.1 pg (27.0-32.0); Mean Platelet Vol. 10.8 fl (6.2-12.0); Monocyte# 1.84 X10^3/uL; Monocyte% 5.3 % (0-10); NRBC Flagged by Analyzer 0.2 % (0-5); Neutrophil # 30.96 X10^3/uL (2.7-7.7); Neutrophil % 89.3 % (47-70); POSITIVE COUNT YES; POSITIVE DIFFERENTIAL YES; Platelet Count 389 K/mm3 (150-450); RBC Distribution Width CV 15.1 % (11.6-14.6); RBC Distribution Width SD 51.5 fl (35.1-43.9); Red Blood Count 4.99 M/mm3 (4.2-5.4)
[2021-03-07 04:52] LABS: ALB/GLOB Ratio 0.3 RATIO (0.9-2.4); AST(SGOT) 71 U/L (15-37); Alanine Aminotransfer ALT/SGPT 223 U/L (13-56); Albumin, Serum 1.3 g/dL (3.2-5.0); Alkaline Phosphatase 182 U/L (45-117); Anion Gap 3 (5-15); BUN 69 mg/dL (7-18); BUN/Creat Ratio 61.1 RATIO (10-20); Calcium,Total 8.7 mg/dL (8.5-10.1); Chloride 120 mmol/L (98-107); Creatinine, Serum 1.13 mg/dL (0.55-1.02); EST Glomerular Filtration Rate 52 mL/min (>60); Est Glom Filt Rate - Afr Amer 63 mL/min (>60); Estimated Creatinine Clearance 48.94 ml/min; Globulin 4.9 g/dL (2.2-4.2); Glucose 343 mg/dL (74-106); Protein, Total 6.2 g/dL (6.4-8.2); Sodium Level 153 mmol/L (136-145)
[2021-03-07] MEDS: Acetaminophen 650 MG/20 ML UDC GT ×4 (04:54→18:25)
[2021-03-07 05:12] LABS: Differential Indicated SCAN CRITERIA MET; White Blood Count 34.7 K/mm3 (4.4-11.0)
[2021-03-07 05:45] LABS: Differential Comment SCANNED
[2021-03-07] MEDS: Amiodarone 360 MG in Dextrose 5% Viaflo Bag 192.8 ML 16.7 MG CONT INF ×2 (05:50→18:40)
[2021-03-07] MEDS: Metoprolol Tartrate 5 MG/5 ML Vial 2.5 MG IV (08:05)
[2021-03-07] MEDS: 0.9% Saline Lock 10 ML Syringe IV ×3 (08:09→14:25)
--- NOTE | 2021-03-07 08:26 | PCM.PN.INT ---
Assessment & Plan Assessment/Plan (1) COVID-19: PLAN: RECOMMENDATIONS: 1. Continue assist control mode of mechanical ventilation and wean FiO2/PEEP for saturations greater than 90%. 2. Continue to hold all sedating medications to facilitate neuro evaluation. 3. Discontinue tube feeds 4. Ongoing goals of care discussion with the patient's family. IMPRESSIONS: 1. Acute hypoxemic respiratory failure secondary to COVID-19 pneumonia The patient has an unvaccinated status. Given her delayed presentation, she was not felt to be a candidate for remdesivir. Over the course of her early hospitalization, attempts to stabilize the patient on noninvasive positive pressure ventilatory support proved unsuccessful. The patient eventually required intubation on the morning of March 03. Plan to continue her on assist control mode of mechanical ventilation and wean FiO2 and PEEP to maintain oxygen saturations at or above 90%. Antimicrobials will be continued to complete 7-day treatment course. This may need to be extended given concerns for aspiration if family decides to remain aggressive. Tube feeds will be continued as tolerated. Decadron will be continued to complete a 10-day treatment course. Hold Lasix for now given hypernatremia and hyperchloremia 2. Acute CVA The patient had an acute neurological change on the morning of March 05 in the setting of profound hypertension and was found to have a posterior right MCA territory infarction. The patient remains encephalopathic, which is felt to be the consequence of her underlying CVA. Patient appears to be neurologically devastated. If family wishes to be aggressive, transition to a trach and PEG with LTAC referral next week. 3. Hypertensive emergency Continue labetalol/hydralazine. Cardene can be reinstituted if needed. 4. Pneumomediastinum We will attempt to limit airway pressures as tolerated. Continue supportive measures. Obtain repeat chest x-ray with any clinical decompensation. 5. SVT Recurred this morning. Patient given Lopressor IV and p.o dose increased. 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 Continue amiodarone. 6. Diabetes mellitus Continue Lantus and sliding scale insulin coverage. 7. Anxiety/hypertension/obesity Complicates care, management, recovery and prognosis. Continue supportive measures as noted above. Overall, the patient's prognosis is quite poor. Addendum 10:12 AM: Patient spiking high fevers and developed patient was given a dose of Lopressor, but started to have hypotension. Patient was given a synchronized cardioversion with 50 J at approximately 10:10 AM. Patient tolerated this well and was in sinus rhythm. Amiodarone will be continued. TIME: 45 minutes of critical care time, independent of procedures, was spent addressing the patient's acute hypoxemic respiratory failure secondary to COVID-19 pneumonia, acute CVA, hypertensive emergency, pneumomediastinum, supraventricular tachycardia, review of all data and collaboration with the care team. (6:30 AM to 7:45 AM, 9:30 AM to 10:15 AM) Subjective Subjective No change in mental status has been noted overnight. Patient did have her OG coiled in the back of her throat with tube feeds running. This was replaced and airway suction. Tube feeds have been discontinued. Family reportedly has been in discussions about goals of therapy. POA is supposed to come in to see the patient this morning. Nursing is reporting that the majority of family members want patient to be made comfortable. Objective Data Objective Data Vital Signs: Vital Signs Temp Pulse Resp BP Pulse Ox 38.7 C H 180 H 21 H 131/72 H 94 03/07/21 04:00 03/07/21 08:05 03/07/21 07:23 03/07/21 07:00 03/07/21 07:23 Oxygen Flow Rate (L/min) 100 Oxygen Delivery Method Mechanical Ventilator Weight: 91.7 kg Body Mass Index (BMI) 33.1 Intake & Output: Intake and Output for Last 24 Hours 03/05/21 03/06/21 03/07/21 23:59 23:59 23:59 Intake Total 2800.77 / 3025.77 2901.78 / 3001.78 776 / 776 Output Total 1865 / 2415 3250 / 3900 1050 / 1050 Balance 935.77 / 610.77 -348.22 / -898.22 -274 / -274 Lab / Micro Data Result Diagrams: 03/07/21 04:10 03/07/21 04:10 Labs: Laboratory Results - last 24 hr 03/06/21 08:28: WBC 31.1 H*, RBC 4.97, Hgb 14.4, Hct 46.7, MCV 94.0, MCH 29.0, MCHC 30.8 L, RDW Std Deviation 51.6 H, RDW Coeff of Curt 14.6, Plt Count 256, MPV 10.6, Immature Gran % (Auto) 2.000 H, Neut % (Auto) 92.7 H, Lymph % (Auto) 1.5 L, [place] % (Auto) 3.4, Eos % (Auto) 0.0, Baso % (Auto) 0.4, Absolute Neuts (auto) 28.8 H, Absolute Lymphs (auto) 0.48 L, Nucleated RBC % 0.1, Differential Comment SCANNED, Diff Path Review October [facility] 03/06/21 08:28: Sodium 147 H, Potassium 4.4, Chloride 117 H, Carbon Dioxide 28.0, Anion Gap 2 L, BUN 52 H, Creatinine 0.96, Estim Creat Clear Calc 57.61, Est GFR (MDRD) Af Amer 76, Est GFR (MDRD) Non-Af 63, BUN/Creatinine Ratio 54.1 H, Glucose 487 H*, Calcium 8.6, Total Bilirubin 0.50, AST 155 H, ALT 342 H, Alkaline Phosphatase 226 H, Total Protein 6.4, Albumin 1.4 L, Globulin 5.0 H, Albumin/Globulin Ratio 0.3 L, TSH 0.13 L 03/06/21 08:28: Ammonia 67.0 H 03/06/21 12:06: POC Glucose 472 H* 03/06/21 17:42: POC Glucose 463 H* 03/06/21 21:38: POC Glucose 471 H* 03/06/21 23:43: POC Glucose 455 H* 03/07/21 04:10: WBC 34.7 H*, RBC 4.99, Hgb 14.5, Hct 46.4, MCV 93.0, MCH 29.1, MCHC 31.3 L, RDW Std Deviation 51.5 H, RDW Coeff of Curt 15.1 H, Plt Count 389, MPV 10.8, Immature Gran % (Auto) 3.100 H, Neut % (Auto) 89.3 H, Lymph % (Auto) 1.9 L, [place] % (Auto) 5.3, Eos % (Auto) 0.0, Baso % (Auto) 0.4, Absolute Neuts (auto) 31.0 H, Absolute Lymphs (auto) 0.67 L, Nucleated RBC % 0.2, Differential Comment SCANNED, Diff Path Review October [facility] 03/07/21 04:10: Sodium 153 H, Potassium 4.0, Chloride 120 H, Carbon Dioxide 30.0, Anion Gap 3 L, BUN 69 H, Creatinine 1.13 H, Estim Creat Clear Calc 48.94, Est GFR (MDRD) Af Amer 63, Est GFR (MDRD) Non-Af 52 L, BUN/Creatinine Ratio 61.1 H, Glucose 343 H, Calcium 8.7, Total Bilirubin 0.40, AST 71 H, ALT 223 H, Alkaline Phosphatase 182 H, Total Protein 6.2 L, Albumin 1.3 L, Globulin 4.9 H, Albumin/Globulin Ratio 0.3 L Micro: Microbiology 03/03/21 10:50 Sputum, Induced/Lukens Gram Stain - Final 03/03/21 10:50 Sputum, Induced/Lukens Respiratory Culture - Final Staphylococcus aureus 03/01/21 03:50 Urine, Clean Catch Streptococcus pneumoniae Antigen (M - Final 03/01/21 03:50 Urine, Clean Catch Legionella Antigen - Final ABG Data ABG results: ABG 03/06/21 09:30 Specimen Type ART Sample Site L Radial pH 7.26 L Bicarbonate Actual 27.0 H Total CO2 29 Base Excess 0 O2 Saturation 92 L O2 % 80 ABG pCO2 60.5 H ABG pO2 76 Damion Test Positive Respiration Rate 16 O2 Delivery Device Adult Vent Vent Mode AC Tidal Volume 400 POC PEEP 12 Radiography Diagnostic Testing: Radiology Impression Chest X-Ray 03/06/21 22:25 IMPRESSION: Enteric tube loops over the mid thoracic esophagus and terminates over the gastric fundus with sidehole above the diaphragm. Similar bilateral pulmonary infiltrates. Electronically Signed: Ezequiel Russ MD at 23:38 EDT Tel , Service support , KUB X-Ray 03/07/21 00:32 IMPRESSION: Enteric tube terminates over the distal stomach/duodenal bulb. Electronically Signed: Ezequiel Russ MD at 1:52 EDT Tel , Service support , Physical Exam Const no apparent distress General Appearance: intubated and patient mechanically ventilated Nutritional Appearance: obese HEENT normocephalic and head/scalp atraumatic Mouth: endotracheal tube in place and OG tube in place Eyes conjunctivae normal Neck supple General: trachea midline Chest inspection of chest normal Chest: symmetrical chest wall rise and crepitus sternum Resp Resp Narrative: No ventilator dyssynchrony. Agonal type respirations Auscultation: diminished lung sounds; Negative for rales, rhonchi or wheezes Cardio regular rate and regular rhythm GI normal to inspection, nondistended, normoactive bowel sounds Extremity Extremity Narrative: Upper extremity swelling at the site of previously placed PICC line General Extremity: edema; Negative for clubbing Skin no rashes or lesions noted Neuro Neuro Narrative: Currently nonresponsive to verbal and noxious stimulation. Charges/Coding Procedures Hospitalists Procedures: [id number]
[2021-03-07] MEDS: dexAMETHasone 10 MG/ML Vial 6 MG IV (09:50)
[2021-03-07] MEDS: Enoxaparin 30 MG/0.3 ML Syringe SC ×2 (09:51→22:17)
[2021-03-07] MEDS: CHLORHEXIDINE GLUC 2% CLOTH 1 EACH TOWELETTE TOPICAL (09:52)
[2021-03-07] MEDS: Chlorhexidine 15 ML PO ×2 (09:52→22:16)
[2021-03-07] MEDS: Lansoprazole 15 MG Capsule.DR 30 MG NG (09:53)
[2021-03-07] MEDS: Metoprolol Tartrate 25 MG Tablet GT ×2 (09:53→22:16)
--- NOTE | 2021-03-07 10:11 | NURSING ---
BP 90/50, HR 170. Dr. Marie at bedside for cardioversion. 50J x [address] HR 116. BP 142/71
[2021-03-07 11:11] LABS: Bedside Glucose 273 mg/dL (70-110)
[2021-03-07 11:40] LABS: Bedside Glucose 385 mg/dL (70-110)
--- NOTE | 2021-03-07 11:54 | PN.HOSP_ITS ---
Subjective Subjective Overnight events noted. No change in mental status. Patient still having high fever, T-max 104 Fahrenheit family is supposed to come and see in the morning. On vent setting. Objective Data Objective Data Vital Signs: Vital Signs Temp Pulse Resp BP Pulse Ox 104.0 F H 99 36 H 117/64 92 03/07/21 11:00 03/07/21 11:00 03/07/21 11:00 03/07/21 11:00 03/07/21 11:00 Oxygen Flow Rate (L/min) 100 Oxygen Delivery Method Mechanical Ventilator Weight: 202 lb 2.622 oz Body Mass Index (BMI) 33.1 Intake & Output: Intake and Output for Last 24 Hours 03/05/21 03/06/21 03/07/21 23:59 23:59 23:59 Intake Total 2800.77 / 3025.77 2901.78 / 3001.78 1076 / 1076 Output Total 1865 / 2415 3250 / 3900 1200 / 1200 Balance 935.77 / 610.77 -348.22 / -898.22 -124 / -124 Lab / Micro Data Result Diagrams: 03/07/21 04:10 03/07/21 04:10 Labs: Laboratory Results - last 24 hr 03/06/21 12:06: POC Glucose 472 H* 03/06/21 17:42: POC Glucose 463 H* 03/06/21 21:38: POC Glucose 471 H* 03/06/21 23:43: POC Glucose 455 H* 03/07/21 04:10: WBC 34.7 H*, RBC 4.99, Hgb 14.5, Hct 46.4, MCV 93.0, MCH 29.1, MCHC 31.3 L, RDW Std Deviation 51.5 H, RDW Coeff of Curt 15.1 H, Plt Count 389, MPV 10.8, Immature Gran % (Auto) 3.100 H, Neut % (Auto) 89.3 H, Lymph % (Auto) 1.9 L, [place] % (Auto) 5.3, Eos % (Auto) 0.0, Baso % (Auto) 0.4, Absolute Neuts (auto) 31.0 H, Absolute Lymphs (auto) 0.67 L, Nucleated RBC % 0.2, Differential Comment SCANNED, Diff Path Review October03/07/21 04:10: Sodium 153 H, Potassium 4.0, Chloride 120 H, Carbon Dioxide 30.0, Anion Gap 3 L, BUN 69 H, Creatinine 1.13 H, Estim Creat Clear Calc 48.94, Est GFR (MDRD) Af Amer 63, Est GFR (MDRD) Non-Af 52 L, BUN/Creatinine Ratio 61.1 H, Glucose 343 H, Calcium 8.7, Total Bilirubin 0.40, AST 71 H, ALT 223 H, Alkaline Phosphatase 182 H, Total Protein 6.2 L, Albumin 1.3 L, Globulin 4.9 H, Albumin/Globulin Ratio 0.3 L 03/07/21 05:11: POC Glucose 273 H 03/07/21 11:29: POC Glucose 385 H Micro: Microbiology 03/03/21 10:50 Sputum, Induced/Lukens Gram Stain - Final 03/03/21 10:50 Sputum, Induced/Lukens Respiratory Culture - Final Staphylococcus aureus 03/01/21 03:50 Urine, Clean Catch Streptococcus pneumoniae Antigen (M - Final 03/01/21 03:50 Urine, Clean Catch Legionella Antigen - Final Radiography Diagnostic Testing: Radiology Impression Chest X-Ray 03/06/21 22:25 IMPRESSION: Enteric tube loops over the mid thoracic esophagus and terminates over the gastric fundus with sidehole above the diaphragm. Similar bilateral pulmonary infiltrates. Electronically Signed: Ezequiel Russ MD at 23:38 EDT Tel , Service support , KUB X-Ray 03/07/21 00:32 IMPRESSION: Enteric tube terminates over the distal stomach/duodenal bulb. Electronically Signed: Ezequiel Russ MD at 1:52 EDT Tel , Service support , Physical Exam Narrative General: Intubated on volume control mode. Sedation medications are on hold. HEENT: Atraumatic, PERRLA, EOMI, Normocephalic Oral: ET AND OG tube. Neck: Subcutaneous emphysema not palpable probably resolved. No JVD, Negative Carotid Bruits Lungs: On vent support. Air entry diminished in bilateral lung bases. On 55% FiO2. Cardiovascular: Sinus rhythm, heart rate controlled. Normal S1, Normal S2, No murmurs. BP high Abdomen: Bowel Sounds Present, Soft, Non Tender, Non-Distended : Og catheter. Dark urine. No renal angle tenderness. No suprapubic tenderness. Extremities: Mild ankle edema, Capillary Refill Less than 3 Seconds Skin: No rashes, No breakdown Musculoskeletal: No Tenderness to Palpation of Joints or Extremities Neurological: Cranial nerves II-XII grossly intact, Psych/Mental Status: On ventilator Assessment & Plan Assessment/Plan (1) Respiratory failure: QUALIFIERS: Chronicity: acute Respiratory failure complication: hypoxia Qualified Code(s): J96.01 - Acute respiratory failure with hypoxia (2) COVID-19: PLAN: This 60-year-old female with multiple comorbidities admitted with 2- week history of progressive worsening of weakness, shortness of breath, dry cough, postnasal drip. She was found severely hypoxic and tachypneic, in acute hypoxic respiratory failure and was directly admitted from [facility] nonrebreather mask 1. Acute hypoxemic respiratory failure secondary to bilateral COVID-19 pne [place] with pneumomediastinum and subcutaneous emphysema: The patient is unvaccinated. Patient is admitted in ICU. Seen by global climate change researcher. Currently on BiPAP. On Precedex drip as patient was trying to remove BiPAP mask. On Decadron. Not candidate for remdesivir as out of window. Supportive treatment with mucolytic, Pep and bronchodilator. 03/02: Continue BiPAP/AVAPS support. On Precedex drip. 03/03: Patient is intubated because of increased work of breathing, PSVT. Chest x-ray shows pneumomediastinum with subcutaneous emphysema. 03/04: Mechanical ventilator management as per global climate change researcher. Initial preliminary sputum culture shows staph aureus, rare growth. 03/05: Patient remains on high FiO2 requirement with PEEP of 12. 03/06: Patient reports on high FiO2 vent support. Sedatives has been off. Patient is still not waking up. 03/07: On volume control AC mode, respiratory rate 36. Patient not waking up. To be discontinued chest tube was found coiled in back of throat. Airway suctioning done. Right large MCA subacute ischemic stroke with hypertensive emergency: No large vessel occlusion found on CT angiogram. Patient on nicardipine drip. 03/06: Discussed with patient's son yesterday and he understand patient has a large stroke. Still wants full code. 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 Not responsive to adenosine and metoprolol IV. Discussed with the fashion photographer and advised to control with beta-omar and calcium omar. Patient does not have prior cardiac history. 03/04: Currently heart rhythm is sinus rhythm. Heart rate is controlled. 03/05: On amiodarone drip. Heart rate is controlled. 03/07: Patient had hypotension after dose of Lopressor. Synchronized cardioversion of 50 J was given at 10:10 AM. Currently patient in sinus rhythm. Continue amiodarone. 2. Bilateral COVID-19 pneumonia: As mentioned above 3. Diabetes mellitus: Accu-Cheks insulin coverage block sliding scale. On basal insulin. 03/02: Blood sugar is elevated between 265-308. Insulin dose titrated up 03/03: Glucose about 200. 4. DVT prophylaxis Subcutaneous Lovenox 30 mg twice daily. I talked to patient's son Faheem Sexton, [phone]. I informed him about supervisor aircraft maintenance right MCA stroke and clinical update. I also informed that his poor prognosis on maximum vent setting another IV infusion need of critical medications. He still wants to continue as full code. Poor prognosis Charges/Coding Visit Charges Inpatient E&M: 93742 [facility] L3
[2021-03-07] MEDS: hydrALAZINE 20 MG/ML Vial 10 MG IV (14:23)
[2021-03-07] MEDS: Vital AF 1.2 Cal Liquid 1,000 ML 65 ML GT (17:37)
[2021-03-07 22:41] LABS: Bedside Glucose 423 mg/dL (70-110)
[2021-03-08] VITALS (52 sets, daily range): BP systolic 76–189; BP diastolic 48–96; PULSE 78–175; RESP 16–41; TEMP 38.4–40.1; O2SAT 65–96
[2021-03-08] MEDS: Acetaminophen 650 MG/20 ML UDC GT ×4 (01:58→20:53)
--- NOTE | 2021-03-08 02:00 | NURSING ---
0154 Rapid response called, 0155 Dr Luna at bedside, 5 mg Metoprolol ordered and given, 0200 100J syncronized cardioversion performed. with 1 shock pt converts to NSR, will continue to monitor.
[2021-03-08] MEDS: Metoprolol Tartrate 5 MG/5 ML Vial IV ×2 (02:40→04:55)
--- NOTE | 2021-03-08 02:40 | PCM.PN.BLA ---
Progress Note Went into SVT, synchronized cardioversion at 100 J at 2 AM. She was also given 5 of Lopressor.
[2021-03-08 03:59] LABS: Absolute Lymphocyte Count 0.74 X10^3/uL (0.83-4.51); Absolute Neutrophil Count 31.1 X10^3/uL (2.0-7.7); Basophil# 0.15 X10^3/uL; Basophil% 0.4 % (0-1); Hematocrit 44.8 % (37-47); Hemoglobin 13.8 g/dL (12.0-15.0); Lymphocyte # 0.74 X10^3/ul (0.83-4.51); Lymphocyte % 2.1 % (19-41); Mean Corp Hgb Conc 30.8 g/dL (32-36); Mean Corpuscular Hgb 29.4 pg (27.0-32.0); Mean Corpuscular Volume 95.5 fL (81-99); Mean Platelet Vol. 11.2 fl (6.2-12.0); Monocyte% 5.6 % (0-10); NRBC Flagged by Analyzer 0.3 % (0-5); Neutrophil # 31.07 X10^3/uL (2.7-7.7); Neutrophil % 87.3 % (47-70); POSITIVE COUNT YES; POSITIVE DIFFERENTIAL YES; Platelet Count 379 K/mm3 (150-450); RBC Distribution Width CV 15.9 % (11.6-14.6); RBC Distribution Width SD 56.3 fl (35.1-43.9); Red Blood Count 4.69 M/mm3 (4.2-5.4); White Blood Count 35.6 K/mm3 (4.4-11.0)
[2021-03-08 04:06] LABS: Differential Indicated SCAN CRITERIA MET
--- NOTE | 2021-03-08 04:13 | NURSING ---
Patient noted to be in SVT, Dr Luna notified, order obtained to perform synchronized cardioversion at 100J. Shock delivered and patient converts back to NSR/Sinus Tach. Will continue to monitor.
[2021-03-08 04:19] LABS: Anion Gap 5 (5-15); BUN 101 mg/dL (7-18); BUN/Creat Ratio 61.6 RATIO (10-20); Chloride 117 mmol/L (98-107); Creatinine, Serum 1.64 mg/dL (0.55-1.02); EST Glomerular Filtration Rate 34 mL/min (>60); Est Glom Filt Rate - Afr Amer 41 mL/min (>60); Estimated Creatinine Clearance 33.72 ml/min; Glucose 489 mg/dL (74-106); Potassium 4.7 mmol/L (3.5-5.1); Sodium Level 150 mmol/L (136-145)
[2021-03-08] MEDS: Insulin Lispro 100 UNIT/ML INSULN.PEN SC ×5 (04:53→20:55)
[2021-03-08] MEDS: Vital AF 1.2 Cal Liquid 1,000 ML 65 ML GT (05:20)
--- NOTE | 2021-03-08 05:35 | NURSING ---
Patient noted to be in SVT, on unit and notified, order obtained to perform synchronized cardioversion at 50J. Shock delivered and patient converts back to NSR. Will continue to monitor.
--- NOTE | 2021-03-08 05:47 | NURSING ---
Patient noted to be in SVT, Dr Marie on unit and notified, order obtained to perform synchronized cardioversion at 50J. Shock delivered and patient converts back to NSR. Will continue to monitor.
--- NOTE | 2021-03-08 05:58 | NURSING ---
Mike MITTAL attempted to be reached, Faheem does not have voicemail set up and does not answer.
[2021-03-08] MEDS: Amiodarone 360 MG in Dextrose 5% Viaflo Bag 192.8 ML 16.7 MG CONT INF ×2 (06:38→19:51)
--- NOTE | 2021-03-08 07:25 | PN.CC_ITS ---
Assessment & Plan Assessment/Plan (1) COVID-19: PLAN: RECOMMENDATIONS: 1. Continue assist control mode of mechanical ventilation and wean FiO2/PEEP for saturations greater than 90%. 2. Continue to hold all sedating medications to facilitate neuro evaluation. 3. Decrease PEEP given worsening crepitus 4. Ongoing goals of care discussion with the patient's family. IMPRESSIONS: 1. Acute hypoxemic respiratory failure secondary to COVID-19 pneumonia The patient has an unvaccinated status. Given her delayed presentation, she was not felt to be a candidate for remdesivir. Over the course of her early hospitalization, attempts to stabilize the patient on noninvasive positive pressure ventilatory support proved unsuccessful. The patient eventually required intubation on the morning of March 03. Plan to continue her on assist control mode of mechanical ventilation and wean FiO2 and PEEP to maintain oxygen saturations at or above 90%. Antimicrobials will be continued to complete 7-day treatment course. This may need to be extended given concerns for aspiration if family decides to remain aggressive. Tube feeds will be continued as tolerated. Decadron will be continued to complete a 10-day treatment course. Will attempt to aggressively wean PEEP given worsening crepitus. 2. Acute CVA The patient had an acute neurological change on the morning of March 05 in the setting of profound hypertension and was found to have a posterior right MCA territory infarction. The patient remains encephalopathic, which is felt to be the consequence of her underlying CVA. Patient appears to be neurologically devastated. If family wishes to be aggressive, transition to a trach and PEG with LTAC referral would be indicated. 3. Hypertensive emergency Continue labetalol/hydralazine. Cardene can be reinstituted if needed. 4. Pneumomediastinum We will attempt to limit airway pressures as tolerated. Continue supportive measures. Obtain repeat chest x-ray with any clinical decompensation. 5. SVT Recurred multiple times overnight. Patient given Lopressor IV and p.o dose increased. 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 Continue amiodarone. Clinical suspicion for irritation secondary to pneumomediastinum. Attempting to decrease PEEP 6. Diabetes mellitus Continue Lantus and sliding scale insulin coverage. 7. Anxiety/hypertension/obesity Complicates care, management, recovery and prognosis. Continue supportive measures as noted above. Overall, the patient's prognosis is quite poor. 8. Acute kidney injury Patient with worsening renal function over the last 24 to 48 hours. Patient is having significant BUN, hypernatremia and hyperchloremia despite free water flushes. Patient would be a poor dialysis candidate in my perspective. Addendum 3:13 PM Call patient's POA to discuss her current situation. He understands that the prognosis is grim at this point. Did discuss comfort measures. He would like to discuss with his brother before making any decisions. Did suggest DNR Comfort Care with intubation in the interim as patient would likely not survive CPR. However, he wants to talk with his brother before making any decisions. There was discussion about possibly withdrawing care in the next 24 to 48 hours, but patient would not commit to this without speaking with his brother first. Total discussion time of 22 minutes. TIME: 54 minutes of critical care time, independent of procedures, was spent addressing the patient's acute hypoxemic respiratory failure secondary to COVID- 19 pneumonia, acute CVA, hypertensive emergency, pneumomediastinum, supraventricular tachycardia, review of all data and collaboration with the care team. (5:45 AM to 6:45 AM, 2:45 PM to 3:15 PM) Subjective Subjective Patient with significant issues overnight. Patient has had multiple episodes of SVT and has received cardioversion 6 times. Patient continues to be relatively unresponsive. Blood sugars have been elevated despite aggressive insulin. Attempted to contact POA about patient's condition. He reported that he was just there yesterday and we should just do what you have to do. Objective Data Objective Data Vital Signs: Vital Signs Temp Pulse Resp BP Pulse Ox 38.7 C H 87 41 H 111/59 L 96 03/08/21 05:00 03/08/21 06:52 03/08/21 06:52 03/08/21 05:41 03/08/21 06:52 Oxygen Flow Rate (L/min) 100 Oxygen Delivery Method Mechanical Ventilator Weight: 92.7 kg Body Mass Index (BMI) 33.1 Intake & Output: Intake and Output for Last 24 Hours 03/06/21 03/07/21 03/08/21 23:59 23:59 23:59 Intake Total 2901.78 / 3001.78 2919 / 3119 1192.84 / 1192.84 Output Total 3250 / 3900 1620 / 2070 950 / 950 Balance -348.22 / -898.22 1299 / 1049 242.84 / 242.84 Lab / Micro Data Result Diagrams: 03/08/21 03:45 03/08/21 03:45 Labs: Laboratory Results - last 24 hr 03/07/21 05:11: POC Glucose 273 H 03/07/21 11:29: POC Glucose 385 H 03/07/21 22:31: POC Glucose 423 H 03/08/21 03:45: WBC 35.6 H*, RBC 4.69, Hgb 13.8, Hct 44.8, MCV 95.5, MCH 29.4, MCHC 30.8 L, RDW Std Deviation 56.3 H, RDW Coeff of Curt 15.9 H, Plt Count 379, MPV 11.2, Immature Gran % (Auto) 4.600 H, Neut % (Auto) 87.3 H, Lymph % (Auto) 2.1 L, [place] % (Auto) 5.6, Eos % (Auto) 0.0, Baso % (Auto) 0.4, Absolute Neuts (auto) 31.1 H, Absolute Lymphs (auto) 0.74 L, Nucleated RBC % 0.3, Diff Path Review October03/08/21 03:45: Sodium 150 H, Potassium 4.7, Chloride 117 H, Carbon Dioxide 28.0, Anion Gap 5, BUN 101 H*, Creatinine 1.64 H, Estim Creat Clear Calc 33.72, Est GFR (MDRD) Af Amer 41 L, Est GFR (MDRD) Non-Af 34 L, BUN/Creatinine Ratio 61.6 H, Glucose 489 H*, Calcium 8.0 L Micro: Microbiology 03/03/21 10:50 Sputum, Induced/Lukens Gram Stain - Final 03/03/21 10:50 Sputum, Induced/Lukens Respiratory Culture - Final Staphylococcus aureus 03/01/21 03:50 Urine, Clean Catch Streptococcus pneumoniae Antigen (M - Final 03/01/21 03:50 Urine, Clean Catch Legionella Antigen - Final Physical Exam Const Constitutional Narrative: Not on any continuous sedative medications. General Appearance: cooperative, comfortable, well developed, in distress, uncooperative and ill appearing HEENT moist oral mucous membranes Neck full ROM and no lymphadenopathy Chest Chest Narrative: Worsening crepitus present at base of neck and throughout the chest. Chest: symmetrical chest wall rise and crepitus sternum Resp Resp Narrative: No ventilator dyssynchrony. Agonal type respirations Effort and Inspection: tachypneic, actively coughing and prolonged expiratory phase Percussion: Negative for dullness Cardio S1 normal heart sound, S2 normal heart sound, no murmurs, no rub and no gallops Cardio Narrative: Multiple episodes of SVT overnight on telemetry. Rate: tachycardic Heart Sounds: Negative for murmur no CVA tenderness Extremity Extremity Narrative: Upper extremity swelling at the site of previously placed PICC line Neuro oriented x3, CN's II-XII intact bilaterally, moves all extremities and no focal motor deficits Neuro Narrative: Currently nonresponsive to verbal and noxious stimulation. Sensorium / Orientation: sedated on vent Psych Attitude: paranoid and evasive Speech: pressured Thought Process: disorganized Thought Content: No suicidality Attention / Concentration: concentration grossly impaired Charges/Coding Procedures Hospitalists Procedures: 94054 Critial Care 1st Hr
--- NOTE | 2021-03-08 07:57 | NURSING ---
pt in SVT, HR 170's. Discussed with Dr Marie. Ordered to give 1 shock at 50J synchronized.
--- NOTE | 2021-03-08 08:09 | NURSING ---
Pt cardioverted x1 shock at 50J
[2021-03-08] MEDS: Chlorhexidine 15 ML PO ×2 (08:13→20:57)
--- NOTE | 2021-03-08 08:20 | NURSING ---
Pt cardioverted x1 shock 50J
[2021-03-08] MEDS: Enoxaparin 30 MG/0.3 ML Syringe SC ×2 (08:21→20:53)
[2021-03-08] MEDS: Lansoprazole 15 MG Capsule.DR 30 MG NG (08:22)
[2021-03-08] MEDS: dexAMETHasone 10 MG/ML Vial 6 MG IV (08:22)
[2021-03-08] MEDS: Metoprolol Tartrate 25 MG Tablet GT ×2 (08:23→20:52)
--- NOTE | 2021-03-08 08:42 | NURSING ---
Pt cardioverted x1 shock 50J
[2021-03-08 09:21] LABS: Bedside Glucose > 500 mg/dL (70-110)
[2021-03-08 09:21] LABS: Bedside Glucose 414 mg/dL (70-110)
[2021-03-08 10:36] LABS: Bedside Glucose > 500 mg/dL (70-110)
[2021-03-08] MEDS: Insulin Lispro 100 UNIT/ML INSULN.PEN 25 UNIT SC (10:56)
[2021-03-08] MEDS: CHLORHEXIDINE GLUC 2% CLOTH 1 EACH TOWELETTE TOPICAL (10:57)
[2021-03-08] MEDS: Menthol/Lanolin/Calamine/Znox 113 GM Tube 1 APPLIC TOPICAL ×2 (11:52→20:57)
[2021-03-08 13:24] LABS: Pathologist Review Reviewed
[2021-03-08 13:25] LABS: Pathologist Review Reviewed
[2021-03-08 13:28] LABS: Pathologist Review Reviewed
--- NOTE | 2021-03-08 13:29 | PCM.PN.HOSP ---
Subjective Subjective Patient had a CT and had synchronized cardioversion at 200 J. Patient is still having sinus tachycardic, tachypneic,On 75% FiO2. high fever Objective Data Objective Data Vital Signs: Vital Signs Temp Pulse Resp BP Pulse Ox 103.1 F H 168 H 26 H 110/51 L 93 03/08/21 12:00 03/08/21 13:11 03/08/21 13:11 03/08/21 13:00 03/08/21 13:11 Oxygen Flow Rate (L/min) 100 Oxygen Delivery Method Mechanical Ventilator Weight: 204 lb 5.896 oz Body Mass Index (BMI) 33.1 Intake & Output: Intake and Output for Last 24 Hours 03/06/21 03/07/21 03/08/21 23:59 23:59 23:59 Intake Total 2901.78 / 3001.78 2919 / 3119 2257.84 / 2257.84 Output Total 3250 / 3900 1620 / 2070 1250 / 1250 Balance -348.22 / -898.22 1299 / 1049 1007.84 / 1007.84 Lab / Micro Data Result Diagrams: 03/08/21 03:45 03/08/21 03:45 Labs: Laboratory Results - last 24 hr 03/06/21 08:28: Diff Path Review Reviewed 03/07/21 04:10: Diff Path Review Reviewed 03/07/21 17:00: POC Glucose > 500 H* 03/07/21 17:02: POC Glucose 414 H 03/07/21 22:31: POC Glucose 423 H 03/08/21 03:45: WBC 35.6 H*, RBC 4.69, Hgb 13.8, Hct 44.8, MCV 95.5, MCH 29.4, MCHC 30.8 L, RDW Std Deviation 56.3 H, RDW Coeff of Curt 15.9 H, Plt Count 379, MPV 11.2, Immature Gran % (Auto) 4.600 H, Neut % (Auto) 87.3 H, Lymph % (Auto) 2.1 L, [place] % (Auto) 5.6, Eos % (Auto) 0.0, Baso % (Auto) 0.4, Absolute Neuts (auto) 31.1 H, Absolute Lymphs (auto) 0.74 L, Nucleated RBC % 0.3, Diff Path Review Reviewed 03/08/21 03:45: Sodium 150 H, Potassium 4.7, Chloride 117 H, Carbon Dioxide 28.0, Anion Gap 5, BUN 101 H*, Creatinine 1.64 H, Estim Creat Clear Calc 33.72, Est GFR (MDRD) Af Amer 41 L, Est GFR (MDRD) Non-Af 34 L, BUN/Creatinine Ratio 61.6 H, Glucose 489 H*, Calcium 8.0 L 03/08/21 10:29: POC Glucose > 500 H* Micro: Microbiology 03/03/21 10:50 Sputum, Induced/Lukens Gram Stain - Final 03/03/21 10:50 Sputum, Induced/Lukens Respiratory Culture - Final Staphylococcus aureus 03/01/21 03:50 Urine, Clean Catch Streptococcus pneumoniae Antigen (M - Final 03/01/21 03:50 Urine, Clean Catch Legionella Antigen - Final Physical Exam Narrative General: Intubated on volume control mode. Unconscious, unresponsive. Sedation medications are on hold. HEENT: Atraumatic, Normocephalic. Conjunctival edema Oral: ET AND OG tube. Neck: Subcutaneous emphysema not palpable probably resolved. No JVD, Negative Carotid Bruits Lungs: On vent support. Air entry diminished in bilateral lung bases. Cardiovascular: Sinus rhythm, heart rate controlled. Normal S1, Normal S2, No murmurs. Abdomen: Bowel Sounds Present, Soft, Non Tender, Non-Distended : Og catheter. No renal angle tenderness. No suprapubic tenderness. Extremities: Mild ankle edema, Capillary Refill Less than 3 Seconds Skin: No rashes, No breakdown Musculoskeletal: No Tenderness to Palpation of Joints or Extremities Neurological: Cranial nerves II-XII grossly intact, unobtainable Psych/Mental Status: On ventilator Assessment & Plan Assessment/Plan (1) Respiratory failure: QUALIFIERS: Chronicity: acute Respiratory failure complication: hypoxia Qualified Code(s): J96.01 - Acute respiratory failure with hypoxia (2) COVID-19: PLAN: This 60-year-old female with multiple comorbidities admitted with 2-week history of progressive worsening of weakness, shortness of breath, dry cough, postnasal drip. She was found severely hypoxic and tachypneic, in acute hypoxic respiratory failure and was directly admitted from [facility] nonrebreather mask 1. Acute hypoxemic respiratory failure secondary to bilateral COVID-19 pneumonia with pneumomediastinum and subcutaneous emphysema: The patient is unvaccinated. Patient is admitted in ICU. Seen by intelligent systems engineer. Currently on BiPAP. On Precedex drip as patient was trying to remove BiPAP mask. On Decadron. Not candidate for remdesivir as out of window. Supportive treatment with mucolytic, Pep and bronchodilator. 03/02: Continue BiPAP/AVAPS support. On Precedex drip. 03/03: Patient is intubated because of increased work of breathing, PSVT. Chest x-ray shows pneumomediastinum with subcutaneous emphysema. 03/04: Mechanical ventilator management as per intelligent systems engineer. Initial preliminary sputum culture shows staph aureus, rare growth. 03/05: Patient remains on high FiO2 requirement with PEEP of 12. 03/06: Patient reports on high FiO2 vent support. Sedatives has been off. Patient is still not waking up. 03/07: On volume control AC mode, respiratory rate 36. Patient not waking up. Airway suctioning done. 03/08: As per nursing staff, family member came yesterday but did not make any change in the CODE STATUS. Patient still has tachycardia, tachypnea on the amiodarone drip and metoprolol Right large MCA subacute ischemic stroke with hypertensive emergency: No large vessel occlusion found on CT angiogram. Patient on nicardipine drip. 03/06: Discussed with patient's son yesterday and he understand patient has a large stroke. Still wants full code. 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 Not responsive to adenosine and metoprolol IV. Discussed with the sample tailor and advised to control with beta-omar and calcium omar. Patient does not have prior cardiac history. 03/04: Currently heart rhythm is sinus rhythm. Heart rate is controlled. 03/05: On amiodarone drip. Heart rate is controlled. 03/07: Patient had hypotension after dose of Lopressor. Synchronized cardioversion of 50 J was given at 10:10 AM. Currently patient in sinus rhythm. Continue amiodarone. 2. Bilateral COVID-19 pneumonia: As mentioned above 3. Diabetes mellitus: Accu-Cheks insulin coverage block sliding scale. On basal insulin. 03/02: Blood sugar is elevated between 265-308. Insulin dose titrated up 03/03: Glucose about 200. 4. DVT prophylaxis Subcutaneous Lovenox 30 mg twice daily. Poor prognosis Charges/Coding Visit Charges Inpatient E&M: 04960 Subs Hosp L3
[2021-03-08 14:11] LABS: Bedside Glucose 483 mg/dL (70-110)
[2021-03-08] MEDS: Insulin Lispro 100 UNIT/ML INSULN.PEN 24 UNIT SC (14:16)
--- NOTE | 2021-03-08 14:52 | NURSING ---
cooling blanket applied
[2021-03-08 18:56] LABS: Bedside Glucose 446 mg/dL (70-110)
[2021-03-08 21:27] LABS: Bedside Glucose 392 mg/dL (70-110)
--- NOTE | 2021-03-08 23:44 | NURSING ---
Patient MAP noted at 63, cardioversion of 1 synchonized shock at 50 Joules delivered, patient returns to NSR. Will continue to monitor.
[2021-03-09] VITALS (45 sets, daily range): BP systolic 84–167; BP diastolic 48–103; PULSE 20–95; RESP 12–32; TEMP 37.7–39.7; O2SAT 50–96
[2021-03-09] MEDS: CHLORHEXIDINE GLUC 2% CLOTH 1 EACH TOWELETTE TOPICAL (01:44)
[2021-03-09] MEDS: Insulin Lispro 100 UNIT/ML INSULN.PEN SC ×2 (01:44→05:47)
[2021-03-09 02:00] LABS: Bedside Glucose 373 mg/dL (70-110)
[2021-03-09] MEDS: Acetaminophen 650 MG/20 ML UDC GT ×2 (02:01→14:34)
[2021-03-09 05:56] LABS: Bedside Glucose 261 mg/dL (70-110)
[2021-03-09 06:09] LABS: Absolute Lymphocyte Count 1.28 X10^3/uL (0.83-4.51); Absolute Neutrophil Count 27.9 X10^3/uL (2.0-7.7); Basophil# 0.01 X10^3/uL; Hematocrit 46.4 % (37-47); Lymphocyte # 1.28 X10^3/ul (0.83-4.51); Mean Corp Hgb Conc 30.2 g/dL (32-36); Mean Corpuscular Hgb 29.7 pg (27.0-32.0); Mean Corpuscular Volume 98.5 fL (81-99); Mean Platelet Vol. 11.4 fl (6.2-12.0); Monocyte# 1.72 X10^3/uL; Monocyte% 5.3 % (0-10); NRBC Flagged by Analyzer 0.5 % (0-5); Neutrophil # 27.92 X10^3/uL (2.7-7.7); Neutrophil % 86.6 % (47-70); POSITIVE COUNT YES; POSITIVE DIFFERENTIAL YES; POSITIVE MORPHOLOGY YES; Platelet Count 340 K/mm3 (150-450); RBC Distribution Width CV 16.3 % (11.6-14.6); RBC Distribution Width SD 59.7 fl (35.1-43.9); Red Blood Count 4.71 M/mm3 (4.2-5.4)
[2021-03-09 06:17] LABS: Differential Indicated SCAN CRITERIA MET; White Blood Count 32.3 K/mm3 (4.4-11.0)
[2021-03-09 06:30] LABS: Anion Gap 6 (5-15); BUN 139 mg/dL (7-18); BUN/Creat Ratio 60.4 RATIO (10-20); Calcium,Total 7.8 mg/dL (8.5-10.1); Chloride 116 mmol/L (98-107); EST Glomerular Filtration Rate 23 mL/min (>60); Est Glom Filt Rate - Afr Amer 28 mL/min (>60); Estimated Creatinine Clearance 24.05 ml/min; Glucose 293 mg/dL (74-106); Potassium 4.9 mmol/L (3.5-5.1); Sodium Level 147 mmol/L (136-145)
[2021-03-09] MEDS: Amiodarone 360 MG in Dextrose 5% Viaflo Bag 192.8 ML 16.7 MG CONT INF ×2 (06:34→19:45)
[2021-03-09 06:39] LABS: Differential Comment SCANNED
--- NOTE | 2021-03-09 08:50 | PCM.PN.INT ---
Assessment & Plan Assessment/Plan (1) COVID-19: PLAN: RECOMMENDATIONS: 1. Continue assist control mode of mechanical ventilation and wean FiO2/PEEP for saturations greater than 90%. 2. Continue to hold all sedating medications to facilitate neuro evaluation. 3. Decrease PEEP given worsening crepitus 4. Ongoing goals of care discussion with the patient's family. 5. Initiate empiric Keppra therapy IMPRESSIONS: 1. Acute hypoxemic respiratory failure secondary to COVID-19 pneumonia The patient has an unvaccinated status. Given her delayed presentation, she was not felt to be a candidate for remdesivir. Over the course of her early hospitalization, attempts to stabilize the patient on noninvasive positive pressure ventilatory support proved unsuccessful. The patient eventually required intubation on the morning of March 03. Plan to continue her on assist control mode of mechanical ventilation and wean FiO2 and PEEP to maintain oxygen saturations at or above 90%. Antimicrobials will be continued to complete 7-day treatment course. This may need to be extended given concerns for aspiration if family decides to remain aggressive. Tube feeds will be continued as tolerated. Decadron will be continued to complete a 10-day treatment course. Substantial decrease in PEEP has not led to a change in crepitus. However, patient appears to be tolerating sinus rhythm better, so pneumomediastinum may be improving. 2. Acute CVA The patient had an acute neurological change on the morning of March 05 in the setting of profound hypertension and was found to have a posterior right MCA territory infarction. The patient remains encephalopathic, which is felt to be the consequence of her underlying CVA. Patient appears to be neurologically devastated. If family wishes to be aggressive, transition to a trach and PEG with LTAC referral would be indicated. Given patient's twitching of the left hand, there is some concern for possible seizures. Patient will be given empiric Keppra therapy. 3. Hypertensive emergency Continue labetalol/hydralazine. Cardene can be reinstituted if needed. 4. Pneumomediastinum We will attempt to limit airway pressures as tolerated. Continue supportive measures. Obtain repeat chest x-ray with any clinical decompensation. 5. SVT Recurred multiple times overnight. Patient given Lopressor IV and p.o dose increased. 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 Continue amiodarone. Clinical suspicion for irritation secondary to pneumomediastinum. Attempting to decrease PEEP 6. Diabetes mellitus Continue Lantus and sliding scale insulin coverage. 7. Anxiety/hypertension/obesity Complicates care, management, recovery and prognosis. Continue supportive measures as noted above. Overall, the patient's prognosis is quite poor. 8. Acute kidney injury Patient with worsening renal function over the last 24 to 48 hours. Patient is having significant BUN, hypernatremia and hyperchloremia despite free water flushes. Patient would be a poor dialysis candidate in my perspective. 9. Goals of care Spoke at length with the son yesterday. He is very clear that the patient would not want to live in a [place] [facility] [place]. Given patient's current status, the likelihood of going home is very poor. Patient will likely require a trach and PEG with institutionalization for the rest of her life. Given the scarcity of resources at this time, there is some concern that this represents futile care in a time when resources could be better spent with other patients. Son is very clear that this is not what she would want, but is unwilling to make decisions that are necessary that I can tell. If patient's son fails to communicate today, may obtain an ethics consult. Addendum 5:36 PM: Spoke with patient's son Faheem about his mother's prognosis. He understands that the patient has developed seizure activity and has been placed on medications. He states that he spoke with his brother and he feels that he should just pull the plug. The patient is very clear that his mother would never want to live in a [place] [facility] [place] facility. Despite being told that this would be necessary given the need for a trach and PEG, patient states that he is unable to get any time off of work until Monday. Patient did not state that he would change measures on Monday but that he would evaluate at that time. Patient did state that he is taking vacation next week in an effort to address the situation. Did offer to contact his employer to see if this could be moved up given the severity of the current situation. Patient would be best served by having a tracheostomy and PEG in the near future if aggressive measures are going to be continued. The patient reportedly told the nurses that he hates [facility] and feels that his mother did not receive the care that was necessary. TIME: 34 minutes of critical care time, independent of procedures, was spent addressing the patient's acute hypoxemic respiratory failure secondary to COVID-19 pneumonia, acute CVA, hypertensive emergency, pneumomediastinum, supraventricular tachycardia, review of all data and collaboration with the care team. (5:15 AM to 6:15 AM) Subjective Subjective Patient did okay overnight. Patient did have tachycardia with hypotension and did receive a cardioversion. Patient has remained in sinus rhythm since that time. There has been some intermittent left hand twitching noted by staff. Spoke with patient's son yesterday. He was very clear that the patient would never live in a [place] [facility] [place]. When discussions about transitioning to palliative measures were completed, patient refused change in CODE STATUS and stated that he needed to talk to his brother. The patient stated his brother did not want to see her like this anymore. Objective Data Objective Data Vital Signs: Vital Signs Temp Pulse Resp BP Pulse Ox 37.7 C H 82 24 H 167/77 H 93 03/09/21 07:00 03/09/21 07:00 03/09/21 07:33 03/09/21 07:00 03/09/21 07:00 Oxygen Flow Rate (L/min) 60 Oxygen Delivery Method Mechanical Ventilator Weight: 97.4 kg Body Mass Index (BMI) 33.1 Intake & Output: Intake and Output for Last 24 Hours 03/07/21 03/08/21 03/09/21 23:59 23:59 23:59 Intake Total 2919 / 3119 3264.84 / 3464.84 578.97 / 578.97 Output Total 1620 / 2070 1400 / 1520 250 / 250 Balance 1299 / 1049 1864.84 / 1944.84 328.97 / 328.97 Lab / Micro Data Result Diagrams: 03/09/21 05:35 03/09/21 05:35 Labs: Laboratory Results - last 24 hr 03/06/21 08:28: Diff Path Review Reviewed 03/07/21 04:10: Diff Path Review Reviewed 03/07/21 17:00: POC Glucose > 500 H* 03/07/21 17:02: POC Glucose 414 H 03/08/21 03:45: Diff Path Review Reviewed 03/08/21 10:29: POC Glucose > 500 H* 03/08/21 13:53: POC Glucose 483 H* 03/08/21 16:31: POC Glucose 446 H 03/08/21 20:46: POC Glucose 392 H 03/09/21 01:38: POC Glucose 373 H 03/09/21 05:35: WBC 32.3 H*, RBC 4.71, Hgb 14.0, Hct 46.4, MCV 98.5, MCH 29.7, MCHC 30.2 L, RDW Std Deviation 59.7 H, RDW Coeff of Curt 16.3 H, Plt Count 340, MPV 11.4, Immature Gran % (Auto) 4.100 H, Neut % (Auto) 86.6 H, Lymph % (Auto) 4.0 L, [place] % (Auto) 5.3, Eos % (Auto) 0.0, Baso % (Auto) 0.0, Absolute Neuts (auto) 27.9 H, Absolute Lymphs (auto) 1.28, Nucleated RBC % 0.5, Differential Comment SCANNED, Diff Path Review October foll 03/09/21 05:35: Sodium 147 H, Potassium 4.9, Chloride 116 H, Carbon Dioxide 25.0, Anion Gap 6, BUN 139 H*, Creatinine 2.30 H, Estim Creat Clear Calc 24.05, Est GFR (MDRD) Af Amer 28 L, Est GFR (MDRD) Non-Af 23 L, BUN/Creatinine Ratio 60.4 H, Glucose 293 H, Calcium 7.8 L 03/09/21 05:41: POC Glucose 261 H Micro: Microbiology 03/03/21 10:50 Sputum, Induced/Lukens Gram Stain - Final 03/03/21 10:50 Sputum, Induced/Lukens Respiratory Culture - Final Staphylococcus aureus 03/01/21 03:50 Urine, Clean Catch Streptococcus pneumoniae Antigen (M - Final 03/01/21 03:50 Urine, Clean Catch Legionella Antigen - Final Physical Exam Const Constitutional Narrative: Not on any continuous sedative medications. General Appearance: cooperative, comfortable, well developed, in distress, uncooperative and ill appearing HEENT moist oral mucous membranes Neck full ROM and no lymphadenopathy Chest Chest Narrative: No change crepitus present at base of neck and throughout the chest. Chest: symmetrical chest wall rise and crepitus sternum Resp Resp Narrative: No ventilator dyssynchrony. Agonal type respirations Effort and Inspection: tachypneic, actively coughing and prolonged expiratory phase Percussion: Negative for dullness Cardio S1 normal heart sound, S2 normal heart sound, no murmurs, no rub and no gallops Cardio Narrative: Multiple episodes of SVT overnight on telemetry. Rate: tachycardic Heart Sounds: Negative for murmur no CVA tenderness Extremity Extremity Narrative: Upper extremity swelling at the site of previously placed PICC line Neuro oriented x3, CN's II-XII intact bilaterally, moves all extremities and no focal motor deficits Neuro Narrative: Currently nonresponsive to verbal and noxious stimulation. Some twitching of the left upper extremity noted. This does not generalize. Sensorium / Orientation: sedated on vent Psych Attitude: paranoid and evasive Speech: pressured Thought Process: disorganized Thought Content: No suicidality Attention / Concentration: concentration grossly impaired Charges/Coding Procedures Hospitalists Procedures: 65092 Critial Care 1st Hr
[2021-03-09] MEDS: 0.9% Saline Lock 10 ML Syringe IV ×2 (10:45→14:33)
[2021-03-09] MEDS: Lansoprazole 15 MG Capsule.DR 30 MG NG (10:45)
[2021-03-09] MEDS: Enoxaparin 30 MG/0.3 ML Syringe SC ×2 (10:46→21:56)
[2021-03-09] MEDS: Chlorhexidine 15 ML PO ×2 (10:46→21:57)
[2021-03-09] MEDS: dexAMETHasone 10 MG/ML Vial 6 MG IV (10:46)
[2021-03-09] MEDS: Menthol/Lanolin/Calamine/Znox 113 GM Tube 1 APPLIC TOPICAL ×2 (10:49→22:00)
[2021-03-09] MEDS: Metoprolol Tartrate 25 MG Tablet GT ×2 (11:06→21:56)
--- NOTE | 2021-03-09 11:33 | PN.HOSP_ITS ---
Subjective Subjective The patient had low-grade fever. Hold for SBP less than 120 mmHg. Currently in sinus rhythm. Patient having constant head and neck involuntary, rhythmic twitching, tremor. No significant improvement Objective Data Objective Data Vital Signs: Vital Signs Temp Pulse Resp BP Pulse Ox 99.9 F H 39 L 20 H 84/48 L 96 03/09/21 11:00 03/09/21 11:20 03/09/21 11:20 03/09/21 11:00 03/09/21 11:20 Oxygen Flow Rate (L/min) 60 Oxygen Delivery Method Mechanical Ventilator Weight: 214 lb 11.684 oz Body Mass Index (BMI) 33.1 Intake & Output: Intake and Output for Last 24 Hours 03/07/21 03/08/21 03/09/21 23:59 23:59 23:59 Intake Total 2919 / 3119 3264.84 / 3464.84 978.97 / 978.97 Output Total 1620 / 2070 1400 / 1520 575 / 575 Balance 1299 / 1049 1864.84 / 1944.84 403.97 / 403.97 Lab / Micro Data Result Diagrams: 03/09/21 05:35 03/09/21 05:35 Labs: Laboratory Results - last 24 hr 03/06/21 08:28: Diff Path Review Reviewed 03/07/21 04:10: Diff Path Review Reviewed 03/08/21 03:45: Diff Path Review Reviewed 03/08/21 13:53: POC Glucose 483 H* 03/08/21 16:31: POC Glucose 446 H 03/08/21 20:46: POC Glucose 392 H 03/09/21 01:38: POC Glucose 373 H 03/09/21 05:35: WBC 32.3 H*, RBC 4.71, Hgb 14.0, Hct 46.4, MCV 98.5, MCH 29.7, MCHC 30.2 L, RDW Std Deviation 59.7 H, RDW Coeff of Curt 16.3 H, Plt Count 340, MPV 11.4, Immature Gran % (Auto) 4.100 H, Neut % (Auto) 86.6 H, Lymph % (Auto) 4.0 L, [place] % (Auto) 5.3, Eos % (Auto) 0.0, Baso % (Auto) 0.0, Absolute Neuts (auto) 27.9 H, Absolute Lymphs (auto) 1.28, Nucleated RBC % 0.5, Differential Comment SCANNED, Diff Path Review October foll 03/09/21 05:35: Sodium 147 H, Potassium 4.9, Chloride 116 H, Carbon Dioxide 25.0, Anion Gap 6, BUN 139 H*, Creatinine 2.30 H, Estim Creat Clear Calc 24.05, Est GFR (MDRD) Af Amer 28 L, Est GFR (MDRD) Non-Af 23 L, BUN/Creatinine Ratio 60.4 H, Glucose 293 H, Calcium 7.8 L 03/09/21 05:41: POC Glucose 261 H Micro: Microbiology 03/03/21 10:50 Sputum, Induced/Lukens Gram Stain - Final 03/03/21 10:50 Sputum, Induced/Lukens Respiratory Culture - Final Staphylococcus aureus 03/01/21 03:50 Urine, Clean Catch Streptococcus pneumoniae Antigen (M - Final 03/01/21 03:50 Urine, Clean Catch Legionella Antigen - Final Physical Exam Narrative General: Intubated on volume control mode. Unconscious, unresponsive. Sedation medications are on hold. HEENT: Atraumatic, Normocephalic. Conjunctival edema Oral: ET AND OG tube. Neck: Subcutaneous emphysema not palpable probably resolved. No JVD, Negative Carotid Bruits Lungs: On vent support. Air entry diminished in bilateral lung bases. Cardiovascular: Sinus rhythm, heart rate controlled. Normal S1, Normal S2, No murmurs. Abdomen: Bowel Sounds Present, Soft, Non Tender, Non-Distended : Og catheter. No renal angle tenderness. No suprapubic tenderness. Extremities: Mild ankle edema, Capillary Refill Less than 3 Seconds Skin: No rashes, No breakdown Musculoskeletal: No Tenderness to Palpation of Joints or Extremities Neurological: Twitching/involuntary movement of head and neck seems tremor /dystonia. Cranial nerves II-XII grossly intact, unobtainable Psych/Mental Status: On ventilator Assessment & Plan Assessment/Plan (1) Respiratory failure: QUALIFIERS: Chronicity: acute Respiratory failure complication: hypoxia Qualified Code(s): J96.01 - Acute respiratory failure with hypoxia (2) COVID-19: PLAN: This 60-year-old female with multiple comorbidities admitted with 2- week history of progressive worsening of weakness, shortness of breath, dry cough, postnasal drip. She was found severely hypoxic and tachypneic, in acute hypoxic respiratory failure and was directly admitted from [facility] nonrebreather mask 1. Acute hypoxemic respiratory failure secondary to bilateral COVID-19 pneumonia with pneumomediastinum and subcutaneous emphysema: The patient is unvaccinated. Patient is admitted in ICU. Seen by guest services officer. Currently on BiPAP. On Precedex drip as patient was trying to remove BiPAP mask. On Decadron. Not candidate for remdesivir as out of window. Supportive treatment with mucolytic, Pep and bronchodilator. 03/02: Continue BiPAP/AVAPS support. On Precedex drip. 03/03: Patient is intubated because of increased work of breathing, PSVT. Chest x-ray shows pneumomediastinum with subcutaneous emphysema. 03/04: Mechanical ventilator management as per guest services officer. Initial preliminary sputum culture shows staph aureus, rare growth. 03/05: Patient remains on high FiO2 requirement with PEEP of 12. 03/06: Patient reports on high FiO2 vent support. Sedatives has been off. Patient is still not waking up. 03/07: On volume control AC mode, respiratory rate 36. Patient not waking up. Airway suctioning done. 03/08: As per nursing staff, family member came yesterday but did not make any change in the CODE STATUS. Patient still has tachycardia, tachypnea on the amiodarone drip and metoprolol 03/09: On empiric Keppra. Gap is decreased with worsening crepitation. On assist control mode. Goal of care discussion with patient's family. Right large MCA subacute ischemic stroke with hypertensive emergency: No large vessel occlusion found on CT angiogram. Patient on nicardipine drip. 03/06: Discussed with patient's son yesterday and he understand patient has a large stroke. Still wants full code. 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 Not responsive to adenosine and metoprolol IV. Discussed with the plisse machine operator helper and advised to control with beta-omar and calcium omar. Patient does not have prior cardiac history. 03/04: Currently heart rhythm is sinus rhythm. Heart rate is controlled. 03/05: On amiodarone drip. Heart rate is controlled. 03/07: Patient had hypotension after dose of Lopressor. Synchronized cardioversion of 50 J was given at 10:10 AM. Currently patient in sinus rhythm. Continue amiodarone. 2. Bilateral COVID-19 pneumonia: As mentioned above 3. Diabetes mellitus: Accu-Cheks insulin coverage block sliding scale. On basal insulin. 03/02: Blood sugar is elevated between 265-308. Insulin dose titrated up 03/03: Glucose about 200. 4. DVT prophylaxis Subcutaneous Lovenox 30 mg twice daily. Poor prognosis Charges/Coding Visit Charges Inpatient E&M: 49781 Subs Hosp L3
[2021-03-09 13:13] LABS: Pathologist Review Reviewed
[2021-03-09] MEDS: Dextrose 50%-Water 25 GM/50 ML DISP.SYRIN IV ×2 (14:33→22:08)
[2021-03-09 14:36] LABS: Bedside Glucose 89 mg/dL (70-110)
[2021-03-09 14:55] LABS: Bedside Glucose 177 mg/dL (70-110)
[2021-03-09 14:55] LABS: Bedside Glucose 40 mg/dL (70-110)
[2021-03-09 18:26] LABS: Bedside Glucose 99 mg/dL (70-110)
[2021-03-09 22:21] LABS: Bedside Glucose 153 mg/dL (70-110)
[2021-03-09 22:21] LABS: Bedside Glucose 61 mg/dL (70-110)
[2021-03-10] VITALS (36 sets, daily range): BP systolic 108–174; BP diastolic 47–81; PULSE 16–82; RESP 16–26; TEMP 37.1–38.1; O2SAT 91–96
--- NOTE | 2021-03-10 03:00 | PN.CC_ITS ---
Assessment & Plan Assessment/Plan (1) COVID-19: PLAN: RECOMMENDATIONS: 1. Continue assist control mode of mechanical ventilation and wean FiO2/PEEP for saturations greater than 90%. 2. Continue to hold all sedating medications to facilitate neuro evaluation. 3. Continue to decrease PEEP given worsening crepitus 4. Ongoing goals of care discussion with the patient's family. 5. Continue empiric Keppra therapy 6. Await morning labs. May need to have nephrology consult 7. Await ethics committee recommendations IMPRESSIONS: 1. Acute hypoxemic respiratory failure secondary to COVID-19 pneumonia The patient has an unvaccinated status. Given her delayed presentation, she was not felt to be a candidate for remdesivir. Over the course of her early hospitalization, attempts to stabilize the patient on noninvasive positive pressure ventilatory support proved unsuccessful. The patient eventually required intubation on the morning of March 03. Plan to continue her on assist control mode of mechanical ventilation and wean FiO2 and PEEP to maintain oxygen saturations at or above 90%. Antimicrobials completed 7-day course. Decadron course should be completed today. Substantial decrease in PEEP has not led to a change in crepitus. However, patient appears to be tolerating sinus rhythm better, so pneumomediastinum may be improving. 2. Acute CVA The patient had an acute neurological change on the morning of March 05 in the setting of profound hypertension and was found to have a posterior right MCA territory infarction. The patient remains encephalopathic, which is felt to be the consequence of her underlying CVA. Patient appears to be neurologically devastated. If family wishes to be aggressive, transition to a trach and PEG with LTAC referral would be indicated. Given patient's twitching of the left hand, there is some concern for possible seizures. Patient will be given empiric Keppra therapy. 3. Hypertensive emergency Continue labetalol/hydralazine. Cardene can be reinstituted if needed. 4. Pneumomediastinum We will attempt to limit airway pressures as tolerated. Continue supportive measures. Obtain repeat chest x-ray with any clinical decompensation. 5. SVT Appears to be improving. 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 Continue amiodarone. Clinical suspicion for irritation secondary to pneumomediastinum. This appears to be improving with decreased PEEP 6. Diabetes mellitus Lantus discontinued. Continue sliding scale insulin coverage. Patient with hypoglycemia overnight. This is likely secondary to lack of tube feeds. Patient will be given D5W given hypernatremia on previous labs. Await morning labs. 7. Anxiety/hypertension/obesity Complicates care, management, recovery and prognosis. Continue supportive measures as noted above. Overall, the patient's prognosis is quite poor. 8. Acute kidney injury Patient with worsening renal function over the last 24 to 48 hours. Patient is having significant BUN, hypernatremia and hyperchloremia despite free water flushes. Patient would be a poor dialysis candidate in my perspective. Await morning labs. May need to obtain a renal consult 9. Goals of care Ethics consult placed yesterday. Current interventions appear to be against wishes expressed by her son as the POA. TIME: 32 minutes of critical care time, independent of procedures, was spent addressing the patient's acute hypoxemic respiratory failure secondary to COVID- 19 pneumonia, acute CVA, hypertensive emergency, pneumomediastinum, supraventricular tachycardia, review of all data and collaboration with the care team. (1 AM to 3 AM) Subjective Subjective Patient did okay overnight. Patient has not been on tube feeds secondary to supply issues. Patient continues to have intermittent twitching of the left hand, but this is not generalized and appears to be improving in frequency per the nurses. Patient is not following commands. Objective Data Objective Data Vital Signs: Vital Signs Temp Pulse Resp BP Pulse Ox 38.1 C H 70 18 138/54 H 93 03/10/21 00:00 03/10/21 02:38 03/10/21 02:38 03/10/21 01:00 03/10/21 02:38 Oxygen Flow Rate (L/min) 60 Oxygen Delivery Method Mechanical Ventilator Weight: 97.4 kg Body Mass Index (BMI) 33.1 Intake & Output: Intake and Output for Last 24 Hours 03/08/21 03/09/21 03/10/21 23:59 23:59 23:59 Intake Total 3264.84 / 3464.84 2086.47 / 2186.47 100 / 100 Output Total 1400 / 1520 725 / 725 Balance 1864.84 / 1944.84 1361.47 / 1461.47 100 / 100 Lab / Micro Data Result Diagrams: 03/09/21 05:35 03/09/21 05:35 Labs: Laboratory Results - last 24 hr 03/09/21 05:35: WBC 32.3 H*, RBC 4.71, Hgb 14.0, Hct 46.4, MCV 98.5, MCH 29.7, MCHC 30.2 L, RDW Std Deviation 59.7 H, RDW Coeff of Curt 16.3 H, Plt Count 340, MPV 11.4, Immature Gran % (Auto) 4.100 H, Neut % (Auto) 86.6 H, Lymph % (Auto) 4.0 L, [place] % (Auto) 5.3, Eos % (Auto) 0.0, Baso % (Auto) 0.0, Absolute Neuts (auto) 27.9 H, Absolute Lymphs (auto) 1.28, Nucleated RBC % 0.5, Differential Comment SCANNED, Diff Path Review Reviewed 03/09/21 05:35: Sodium 147 H, Potassium 4.9, Chloride 116 H, Carbon Dioxide 25.0, Anion Gap 6, BUN 139 H*, Creatinine 2.30 H, Estim Creat Clear Calc 24.05, Est GFR (MDRD) Af Amer 28 L, Est GFR (MDRD) Non-Af 23 L, BUN/Creatinine Ratio 60.4 H, Glucose 293 H, Calcium 7.8 L 03/09/21 05:41: POC Glucose 261 H 03/09/21 10:48: POC Glucose 89 03/09/21 14:30: POC Glucose 40 L* 03/09/21 14:51: POC Glucose 177 H 03/09/21 17:05: POC Glucose 99 03/09/21 21:54: POC Glucose 61 L 03/09/21 22:17: POC Glucose 153 H Micro: Microbiology 03/03/21 10:50 Sputum, Induced/Lukens Gram Stain - Final 03/03/21 10:50 Sputum, Induced/Lukens Respiratory Culture - Final Staphylococcus aureus 03/01/21 03:50 Urine, Clean Catch Streptococcus pneumoniae Antigen (M - F inal 03/01/21 03:50 Urine, Clean Catch Legionella Antigen - Final Physical Exam Const Constitutional Narrative: Not on any continuous sedative medications. General Appearance: cooperative, comfortable, well developed, in distress, uncooperative and ill appearing HEENT moist oral mucous membranes Neck full ROM and no lymphadenopathy Chest Chest Narrative: No change crepitus present at base of neck and throughout the chest. Chest: symmetrical chest wall rise and crepitus sternum Resp Resp Narrative: No ventilator dyssynchrony. Agonal type respirations Effort and Inspection: tachypneic, actively coughing and prolonged expiratory phase Percussion: Negative for dullness Cardio S1 normal heart sound, S2 normal heart sound, no murmurs, no rub and no gallops Rate: tachycardic Heart Sounds: Negative for murmur no CVA tenderness Extremity Extremity Narrative: Upper extremity swelling at the site of previously placed PICC line Neuro oriented x3, CN's II-XII intact bilaterally, moves all extremities and no focal motor deficits Neuro Narrative: Currently nonresponsive to verbal and noxious stimulation. Some twitching of the left upper extremity noted. This does not generalize. Sensorium / Orientation: sedated on vent Psych Attitude: paranoid and evasive Speech: pressured Thought Process: disorganized Thought Content: No suicidality Attention / Concentration: concentration grossly impaired Charges/Coding Procedures Hospitalists Procedures: 73240 Critial Care 1st Hr
[2021-03-10] MEDS: CHLORHEXIDINE GLUC 2% CLOTH 1 EACH TOWELETTE TOPICAL (04:06)
[2021-03-10 04:11] LABS: Bedside Glucose 62 mg/dL (70-110)
[2021-03-10 04:29] LABS: Absolute Lymphocyte Count 1.27 X10^3/uL (0.83-4.51); Absolute Neutrophil Count 35.7 X10^3/uL (2.0-7.7); Basophil# 0.02 X10^3/uL; Basophil% 0.1 % (0-1); Hematocrit 43.3 % (37-47); Hemoglobin 13.2 g/dL (12.0-15.0); Lymphocyte # 1.27 X10^3/ul (0.83-4.51); Lymphocyte % 3.2 % (19-41); Mean Corp Hgb Conc 30.5 g/dL (32-36); Mean Corpuscular Volume 98.4 fL (81-99); Mean Platelet Vol. 11.9 fl (6.2-12.0); Monocyte# 1.82 X10^3/uL; Monocyte% 4.6 % (0-10); NRBC Flagged by Analyzer 0.3 % (0-5); Neutrophil # 35.67 X10^3/uL (2.7-7.7); Neutrophil % 89.1 % (47-70); POSITIVE COUNT YES; POSITIVE DIFFERENTIAL YES; POSITIVE MORPHOLOGY YES; Platelet Count 315 K/mm3 (150-450); RBC Distribution Width CV 15.9 % (11.6-14.6); RBC Distribution Width SD 57.6 fl (35.1-43.9)
[2021-03-10 04:38] LABS: Differential Indicated SCAN CRITERIA MET
[2021-03-10 04:47] LABS: Differential Comment SCANNED
[2021-03-10 05:30] LABS: Anion Gap 3 (5-15); BUN 149 mg/dL (7-18); BUN/Creat Ratio 69.3 RATIO (10-20); Chloride 119 mmol/L (98-107); Creatinine, Serum 2.15 mg/dL (0.55-1.02); EST Glomerular Filtration Rate 25 mL/min (>60); Est Glom Filt Rate - Afr Amer 30 mL/min (>60); Estimated Creatinine Clearance 25.72 ml/min; Glucose 78 mg/dL (74-106); Potassium 5.7 mmol/L (3.5-5.1); Sodium Level 145 mmol/L (136-145)
[2021-03-10 07:01] LABS: Bedside Glucose 85 mg/dL (70-110)
--- NOTE | 2021-03-10 08:09 | PN.HOSP_ITS ---
Subjective Subjective Patient has low-grade fever, T-max 100.7 Fahrenheit.. FiO2 50%. PEEP 8. Ethics committee meeting today. Objective Data Objective Data Vital Signs: Vital Signs Temp Pulse Resp BP Pulse Ox 99.4 F H 20 L 19 H 155/61 H 93 03/10/21 07:00 03/10/21 07:20 03/10/21 07:20 03/10/21 07:00 03/10/21 07:20 Oxygen Flow Rate (L/min) 60 Oxygen Delivery Method Mechanical Ventilator Weight: 209 lb 14.081 oz Body Mass Index (BMI) 33.1 Intake & Output: Intake and Output for Last 24 Hours 03/08/21 03/09/21 03/10/21 23:59 23:59 23:59 Intake Total 3264.84 / 3464.84 2086.47 / 2286.47 800 / 800 Output Total 1400 / 1520 725 / 975 500 / 500 Balance 1864.84 / 1944.84 1361.47 / 1311.47 300 / 300 Lab / Micro Data Result Diagrams: 03/10/21 04:10 03/10/21 04:10 Labs: Laboratory Results - last 24 hr 03/09/21 05:35: Diff Path Review Reviewed 03/09/21 10:48: POC Glucose 89 03/09/21 14:30: POC Glucose 40 L* 03/09/21 14:51: POC Glucose 177 H 03/09/21 17:05: POC Glucose 99 03/09/21 21:54: POC Glucose 61 L 03/09/21 22:17: POC Glucose 153 H 03/10/21 02:29: POC Glucose 62 L 03/10/21 04:10: WBC 40.0 H*, RBC 4.40, Hgb 13.2, Hct 43.3, MCV 98.4, MCH 30.0, MCHC 30.5 L, RDW Std Deviation 57.6 H, RDW Coeff of Curt 15.9 H, Plt Count 315, MPV 11.9, Immature Gran % (Auto) 3.000 H, Neut % (Auto) 89.1 H, Lymph % (Auto) 3.2 L, [place] % (Auto) 4.6, Eos % (Auto) 0.0, Baso % (Auto) 0.1, Absolute Neuts (auto) 35.7 H, Absolute Lymphs (auto) 1.27, Nucleated RBC % 0.3, Differential Comment SCANNED, Diff Path Review October foll 03/10/21 04:10: Sodium 145, Potassium 5.7 H, Chloride 119 H, Carbon Dioxide 23.0, Anion Gap 3 L, BUN 149 H*, Creatinine 2.15 H, Estim Creat Clear Calc 25.72, Est GFR (MDRD) Af Amer 30 L, Est GFR (MDRD) Non-Af 25 L, BUN/Creatinine Ratio 69.3 H, Glucose 78, Calcium 8.0 L 03/10/21 06:55: POC Glucose 85 Micro: Microbiology 03/03/21 10:50 Sputum, Induced/Lukens Gram Stain - Final 03/03/21 10:50 Sputum, Induced/Lukens Respiratory Culture - Final Staphylococcus aureus 03/01/21 03:50 Urine, Clean Catch Streptococcus pneumoniae Antigen (M - Final 03/01/21 03:50 Urine, Clean Catch Legionella Antigen - Final Physical Exam Narrative General: Intubated on volume control mode. Unconscious, unresponsive. Sedating medications have already been discontinued HEENT: Atraumatic, Normocephalic. Conjunctival edema Oral: ET AND OG tube. Neck: No change of subcutaneous emphysema. No JVD, Negative Carotid Bruits Lungs: On vent support. Air entry diminished in bilateral lung bases. Cardiovascular: Sinus rhythm, heart rate controlled. Normal S1, Normal S2, No murmurs. Abdomen: Bowel Sounds Present, Soft, Non Tender, Non-Distended : Og catheter. No renal angle tenderness. No suprapubic tenderness. Extremities: Mild ankle edema, Capillary Refill Less than 3 Seconds Skin: No rashes, No breakdown Musculoskeletal: No Tenderness to Palpation of Joints or Extremities Neurological: Twitching/involuntary movement of head and neck seems tremor /dystonia. Cranial nerves II-XII grossly intact, unobtainable Psych/Mental Status: On ventilator Assessment & Plan Assessment/Plan (1) Respiratory failure: QUALIFIERS: Chronicity: acute Respiratory failure complication: hypoxia Qualified Code(s): J96.01 - Acute respiratory failure with hypoxia (2) COVID-19: PLAN: This 60-year-old female with multiple comorbidities admitted with 2- week history of progressive worsening of weakness, shortness of breath, dry cough, postnasal drip. She was found severely hypoxic and tachypneic, in acute hypoxic respiratory failure and was directly admitted from [facility] nonrebreather mask 1. Acute hypoxemic respiratory failure secondary to bilateral COVID-19 pneumonia with pneumomediastinum and subcutaneous emphysema: The patient is unvaccinated. Patient is admitted in ICU. Seen by director of student life. Currently on BiPAP. On Precedex drip as patient was trying to remove BiPAP mask. On Decadron. Not candidate for remdesivir as out of window. Supportive treatment with mucolytic, Pep and bronchodilator. 03/02: Continue BiPAP/AVAPS support. On Precedex drip. 03/03: Patient is intubated because of increased work of breathing, PSVT. Chest x-ray shows pneumomediastinum with subcutaneous emphysema. 03/04: Mechanical ventilator management as per director of student life. Initial preliminary sputum culture shows staph aureus, rare growth. 03/05: Patient remains on high FiO2 requirement with PEEP of 12. 03/06: Patient reports on high FiO2 vent support. Sedatives has been off. Patient is still not waking up. 03/07: On volume control AC mode, respiratory rate 36. Patient not waking up. Airway suctioning done. 03/08: As per nursing staff, family member came yesterday but did not make any change in the CODE STATUS. Patient still has tachycardia, tachypnea on the amiodarone drip and metoprolol 03/09: On empiric Keppra. Gap is decreased with worsening crepitation. On assist control mode. Goal of care discussion with patient's family. 03/10: Ethics committee meeting as family not able to make definitive decision. Patient is on empiric Keppra for twitching of head and neck, concern for seizure. The patient's family wants further to continue aggressive treatment, will need trach and PEG with LTAC referral. Right large MCA subacute ischemic stroke with hypertensive emergency: No large vessel occlusion found on CT angiogram. Patient on nicardipine drip. 03/06: Discussed with patient's son yesterday and he understand patient has a large stroke. Still wants full code. 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 Not responsive to adenosine and metoprolol IV. Discussed with the university archivist and advised to control with beta-omar and calcium omar. Patient does not have prior cardiac history. 03/04: Currently heart rhythm is sinus rhythm. Heart rate is controlled. 03/05: On amiodarone drip. Heart rate is controlled. 03/07: Patient had hypotension after dose of Lopressor. Synchronized cardioversion of 50 J was given at 10:10 AM. Currently patient in sinus rhythm. Continue amiodarone. 2. Bilateral COVID-19 pneumonia: As mentioned above 3. Diabetes mellitus: Accu-Cheks insulin coverage block sliding scale. On basal insulin. 03/02: Blood sugar is elevated between 265-308. Insulin dose titrated up 03/03: Glucose about 200. 4. DVT prophylaxis Subcutaneous Lovenox 30 mg twice daily. Poor prognosis Charges/Coding Visit Charges Inpatient E&M: 39225 Subs Hosp L3
[2021-03-10] MEDS: Menthol/Lanolin/Calamine/Znox 113 GM Tube 1 APPLIC TOPICAL ×2 (09:11→20:41)
[2021-03-10] MEDS: Amiodarone 360 MG in Dextrose 5% Viaflo Bag 192.8 ML 16.7 MG CONT INF (09:16)
[2021-03-10] MEDS: hydrALAZINE 20 MG/ML Vial 10 MG IV (09:44)
[2021-03-10] MEDS: dexAMETHasone 10 MG/ML Vial 6 MG IV (09:45)
[2021-03-10] MEDS: Chlorhexidine 15 ML PO ×2 (09:45→20:41)
[2021-03-10] MEDS: 0.9% Saline Lock 10 ML Syringe IV (09:45)
[2021-03-10] MEDS: Lansoprazole 15 MG Capsule.DR 30 MG NG (09:47)
[2021-03-10] MEDS: Enoxaparin 30 MG/0.3 ML Syringe SC ×2 (09:48→20:41)
[2021-03-10] MEDS: Metoprolol Tartrate 25 MG Tablet 12.5 MG GT ×2 (09:53→20:40)
[2021-03-10 10:01] LABS: Bedside Glucose 88 mg/dL (70-110)
[2021-03-10 13:46] LABS: Pathologist Review Reviewed
[2021-03-10 13:55] LABS: Bedside Glucose 98 mg/dL (70-110)
[2021-03-10 17:35] LABS: Bedside Glucose 106 mg/dL (70-110)
[2021-03-11] VITALS (28 sets, daily range): BP systolic 117–161; BP diastolic 48–87; PULSE 56–111; RESP 8–38; TEMP 36.8–37.9; O2SAT 78–95
[2021-03-11 00:31] LABS: Bedside Glucose 103 mg/dL (70-110)
[2021-03-11 02:06] LABS: Bedside Glucose 105 mg/dL (70-110)
[2021-03-11 03:25] LABS: Absolute Lymphocyte Count 1.23 X10^3/uL (0.83-4.51); Absolute Neutrophil Count 46.6 X10^3/uL (2.0-7.7); Basophil# 0.01 X10^3/uL; Hemoglobin 12.5 g/dL (12.0-15.0); Lymphocyte # 1.23 X10^3/ul (0.83-4.51); Lymphocyte % 2.4 % (19-41); Mean Corp Hgb Conc 32.1 g/dL (32-36); Mean Corpuscular Volume 93.5 fL (81-99); Mean Platelet Vol. 11.4 fl (6.2-12.0); Monocyte# 1.95 X10^3/uL; Monocyte% 3.8 % (0-10); NRBC Flagged by Analyzer 0.1 % (0-5); Neutrophil # 46.58 X10^3/uL (2.7-7.7); Neutrophil % 90.8 % (47-70); POSITIVE COUNT YES; POSITIVE DIFFERENTIAL YES; POSITIVE MORPHOLOGY YES; Platelet Count 427 K/mm3 (150-450); RBC Distribution Width CV 15.6 % (11.6-14.6); RBC Distribution Width SD 53.1 fl (35.1-43.9); Red Blood Count 4.17 M/mm3 (4.2-5.4)
[2021-03-11 03:31] LABS: Differential Indicated SCAN CRITERIA MET; White Blood Count 51.3 K/mm3 (4.4-11.0)
[2021-03-11 04:01] LABS: ALB/GLOB Ratio 0.3 RATIO (0.9-2.4); AST(SGOT) 324 U/L (15-37); Alanine Aminotransfer ALT/SGPT 533 U/L (13-56); Albumin, Serum 1.3 g/dL (3.2-5.0); Alkaline Phosphatase 113 U/L (45-117); Anion Gap 3 (5-15); BUN 150 mg/dL (7-18); BUN/Creat Ratio 62.5 RATIO (10-20); Calcium,Total 8.5 mg/dL (8.5-10.1); Chloride 117 mmol/L (98-107); EST Glomerular Filtration Rate 22 mL/min (>60); Est Glom Filt Rate - Afr Amer 26 mL/min (>60); Estimated Creatinine Clearance 23.04 ml/min; Globulin 4.1 g/dL (2.2-4.2); Glucose 131 mg/dL (74-106); Potassium 5.9 mmol/L (3.5-5.1); Protein, Total 5.4 g/dL (6.4-8.2); Sodium Level 145 mmol/L (136-145)
[2021-03-11 04:13] LABS: Differential Comment SCANNED
--- NOTE | 2021-03-11 07:47 | PN.CC_ITS ---
Assessment & Plan Assessment/Plan (1) COVID-19: PLAN: RECOMMENDATIONS: 1. Continue assist control mode of mechanical ventilation and wean FiO2/PEEP for saturations greater than 90%. 2. Continue to hold all sedating medications to facilitate neuro evaluation. 3. Decrease PEEP and FiO2 as tolerated 4. Ongoing goals of care discussion with the patient's family. 5. Continue empiric Keppra therapy 6. Await nephrology consult 7. Await ethics committee recommendations 8. Anticipate trach and PEG if patient goals of therapy remain aggressive IMPRESSIONS: 1. Acute hypoxemic respiratory failure secondary to COVID-19 pneumonia The patient has an unvaccinated status. Given her delayed presentation, she was not felt to be a candidate for remdesivir. Over the course of her early hospitalization, attempts to stabilize the patient on noninvasive positive pressure ventilatory support proved unsuccessful. The patient eventually required intubation on the morning of March 03. Plan to continue her on assist control mode of mechanical ventilation and wean FiO2 and PEEP to maintain oxygen saturations at or above 90%. Antimicrobials completed 7-day course. Decadron course should be completed today. Crepitus is improving. However, patient appears to be tolerating sinus rhythm better, so pneumomediastinum may b e improving. Given mental status, it is unclear the patient will ever be able to be extubated. Patient will need a trach and PEG if aggressive measures are recommended 2. Acute CVA The patient had an acute neurological change on the morning of March 05 in the setting of profound hypertension and was found to have a posterior right MCA territory infarction. The patient remains encephalopathic, which is felt to be the consequence of her underlying CVA. Patient appears to be neurologically devastated. If family wishes to be aggressive, transition to a trach and PEG with LTAC referral would be indicated. Patient appears to have responded to empiric Keppra therapy 3. Hypertensive emergency Continue labetalol/hydralazine. Cardene can be reinstituted if needed. 4. Pneumomediastinum We will attempt to limit airway pressures as tolerated. Continue supportive measures. Obtain repeat chest x-ray with any clinical decompensation. 5. SVT Appears to be improving. 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 Continue amiodarone. Clinical suspicion for irritation secondary to pneumomediastinum. This appears to be improving with decreased PEE P 6. Diabetes mellitus Lantus discontinued. Continue sliding scale insulin coverage. Patient with hypoglycemia overnight. This is likely secondary to lack of tube feeds. Patient will be given D5W given hypernatremia on previous labs. Await morning labs. 7. Anxiety/hypertension/obesity Complicates care, management, recovery and prognosis. Continue supportive measures as noted above. Overall, the patient's prognosis is quite poor. 8. Acute kidney injury Patient with worsening renal function over the last 24 to 48 hours. Patient is having significant BUN, hypernatremia and hyperchloremia despite free water flushes. Patient would be a poor dialysis candidate in my perspective. Await morning labs. Await renal consult 9. Goals of care Ethics consult placed yesterday. Current interventions appear to be against wishes expressed by her son as the POA. Addendum 1:16 PM: Approximately 45 minutes was spent in a multidisciplinary conference with both sons. They were updated on the current situation and prognosis. After review and collaboration, they have elected to choose palliative measures. Patient's son Faheem did state that the patient would like [facility], so pastoral services were recommended. The family agreed. The family stated that they would like to withdraw care today. They did not want to be present. They had requested that they get called if the patient passes overnight, otherwise they will be called tomorrow to give an update on status and potentially seek hospice measures at a dedicated facility. Palliative medications and change in CODE STATUS will be ordered. TIME: 33 minutes of critical care time, independent of procedures, was spent addressing the patient's acute hypoxemic respiratory failure secondary to COVID- 19 pneumonia, acute CVA, hypertensive emergency, pneumomediastinum, supraventricular tachycardia, review of all data and collaboration with the care team. (6 AM to 7 AM) Subjective Subjective Patient has done well overnight. No acute issues were reported, but nursing has noted some thick secretions. No significant ectopy has been noted. Patient is no longer having tremor of the left hand, but remains nonresponsive. Objective Data Objective Data Vital Signs: Vital Signs Temp Pulse Resp BP Pulse Ox 36.9 C 69 15 154/63 H 93 03/11/21 04:00 03/11/21 07:00 03/11/21 07:00 03/11/21 07:00 03/11/21 07:00 Oxygen Flow Rate (L/min) 60 Oxygen Delivery Method Mechanical Ventilator Weight: 94.6 kg Body Mass Index (BMI) 33.1 Intake & Output: Intake and Output for Last 24 Hours 03/09/21 03/10/21 03/11/21 23:59 23:59 23:59 Intake Total 2086.47 / 2286.47 1457.5 / 1487.5 308 / 308 Output Total 725 / 975 1460 / 1610 200 / 200 Balance 1361.47 / 1311.47 -2.5 / -122.5 108 / 108 Lab / Micro Data Result Diagrams: 03/11/21 03:15 03/11/21 03:15 Labs: Laboratory Results - last 24 hr 03/10/21 04:10: Diff Path Review Reviewed 03/10/21 09:52: POC Glucose 88 03/10/21 13:50: POC Glucose 98 03/10/21 17:27: POC Glucose 106 03/10/21 21:01: POC Glucose 103 03/11/21 01:59: POC Glucose 105 03/11/21 03:15: WBC 51.3 H*, RBC 4.17 L, Hgb 12.5, Hct 39.0, MCV 93.5, MCH 30.0, MCHC 32.1 D, RDW Std Deviation 53.1 H, RDW Coeff of Curt 15.6 H, Plt Count 427, MPV 11.4, Immature Gran % (Auto) 3.000 H, Neut % (Auto) 90.8 H, Lymph % (Auto) 2.4 L, Hubbard % (Auto) 3.8, Eos % (Auto) 0.0, Baso % (Auto) 0.0, Absolute Neuts (auto) 46.6 H, Absolute Lymphs (auto) 1.23, Nucleated RBC % 0.1, Differential Comment SCANNED, Diff Path Review May 03/11/21 03:15: Sodium 145, Potassium 5.9 H, Chloride 117 H, Carbon Dioxide 25.0, Anion Gap 3 L, BUN 150 H*, Creatinine 2.40 H, Estim Creat Clear Calc 23.04, Est GFR (MDRD) Af Amer 26 L, Est GFR (MDRD) Non-Af 22 L, BUN/Creatinine Ratio 62.5 H, Glucose 131 H, Calcium 8.5, Total Bilirubin 0.40, AST 324 H, ALT 533 H, Alkaline Phosphatase 113, Total Protein 5.4 L, Albumin 1.3 L, Globulin 4.1, Albumin/Globulin Ratio 0.3 L Micro: Microbiology 03/03/21 10:50 Sputum, Induced/Lukens Gram Stain - Final 03/03/21 10:50 Sputum, Induced/Lukens Respiratory Culture - Final Staphylococcus aureus 03/01/21 03:50 Urine, Clean Catch Streptococcus pneumoniae Antigen (M - Jasmin l 03/01/21 03:50 Urine, Clean Catch Legionella Antigen - Final Physical Exam Const Constitutional Narrative: Not on any continuous sedative medications. General Appearance: cooperative, comfortable, well developed, in distress, uncooperative and ill appearing HEENT moist oral mucous membranes Neck full ROM and no lymphadenopathy Chest Chest Narrative: Slight improvement in crepitus present at base of neck and throughout the chest. Chest: symmetrical chest wall rise and crepitus sternum Resp Resp Narrative: No ventilator dyssynchrony. Agonal type respirations Effort and Inspection: tachypneic, actively coughing and prolonged expiratory phase Percussion: Negative for dullness Cardio S1 normal heart sound, S2 normal heart sound, no murmurs, no rub and no gallops Rate: tachycardic Heart Sounds: Negative for murmur no CVA tenderness Extremity Extremity Narrative: Upper extremity swelling at the site of previously placed PICC line Neuro oriented x3, CN's II-XII intact bilaterally, moves all extremities and no focal motor deficits Neuro Narrative: Currently nonresponsive to verbal and noxious stimulation. No twitching of the left upper extremity noted. Sensorium / Orientation: sedated on vent Psych Attention / Concentration: concentration grossly impaired Charges/Coding Procedures Hospitalists Procedures: 34156 Critial Care 1st Hr
[2021-03-11 08:36] LABS: Bedside Glucose 120 mg/dL (70-110)
[2021-03-11] MEDS: Enoxaparin 30 MG/0.3 ML Syringe SC (08:36)
[2021-03-11] MEDS: Amiodarone 200 MG Tablet GT (08:39)
[2021-03-11] MEDS: CHLORHEXIDINE GLUC 2% CLOTH 1 EACH TOWELETTE TOPICAL (08:39)
[2021-03-11] MEDS: Chlorhexidine 15 ML PO (08:40)
[2021-03-11] MEDS: Menthol/Lanolin/Calamine/Znox 113 GM Tube 1 APPLIC TOPICAL (08:40)
[2021-03-11] MEDS: Metoprolol Tartrate 25 MG Tablet 12.5 MG GT (08:41)
[2021-03-11] MEDS: Lansoprazole 15 MG Capsule.DR 30 MG NG (08:46)
--- NOTE | 2021-03-11 09:26 | CON.PCM.RE_ITS ---
Assessment & Plan Assessment/Plan (1) Acute kidney injury: (2) Hyperkalemia: (3) SARS (severe acute respiratory syndrome): (4) COVID-19: (5) Respiratory failure: QUALIFIERS: Chronicity: acute Respiratory failure complication: hypoxia Qualified Code(s): J96.01 - Acute respiratory failure with hypoxia PLAN: Acute kidney injury. Normal baseline creatinine Acute kidney injury likely from ATN from IV contrast exposure in addition to COVID-19 infection Creatinine is rising. Creatinine up to 2.4 mg deciliter Nonoliguric. No metabolic acidosis. Albumin is likely from Decadron which was finished yesterday. Continue to monitor BUN There is no need for urgent renal placement therapy. Keep mean artery pressure more than 65. Check renal function panel in the morning Hyperkalemia: Likely from acute kidney injury I will give the patient Kayexalate 30 g Okay to diurese the patient Acute CVA. CTA showed right MCA ischemic infarction Acute respiratory failure. Likely from Covid 19 pneumonia with resulted in ARDS Patient finished Decadron. Intubated. Might need tracheostomy with PEG tube placement Patient's POA to decide SVT on amiodarone. Now sinus Hypertension urgency. Improved. On as needed labetalol and hydralazine Thank you for the consult. Renal team continue to follow. Call if any question [phone]. Plan of care was discussed with Dr. Yash Marcelo MD HPI Consult Data Date of Consult: 03/11/21 HPI Narrative HPI Narrative: JOSE PANDYA, is a 60 F with past medical history of diabetes, hypertension, and depression nephrolithiasis, ovarian cancer, and depression. Patient presented to the hospital for progressive shortness of breath and cough. Patient was tested positive for COVID-19. Chest x-ray showed bilateral viral pneumonia. Patient initially was on nonrebreather then was intubated due to worsening breathing status. Patient finished treatment with Decadron. Was not candidate for remdesivir due to delayed presentation. Patient's hospital stay complicated with right MCA ischemic stroke, SVT, hypertension emergency and pneumomediastinum. renal team is consulted for acute kidney injury. Baseline creatinine 0.5. Creatinine has been increasing for the last 5 days. Creatinine up to 2.4 mg deciliter. Nonoliguric. BUN high at 150 today. Decadron finished yesterday Nonoliguric. Patient has CTA of neck and head March 05/ [facility] is following the case. Patient son has a POA. Review of system: Not obtainable as the patient is intubated and nonverbal not awake [facility] Medical History (Updated 03/11/21 @ 09:[address] Nataliya Marcelo MD) Anxiety Arthritis Depression Diabetes Fibromyalgia Head ache Head trauma Hypertension Kidney stones Ovarian cancer Rupture of colon Home Medications Acidophilus 1 tablet PO/SL QPM 03/01/21 [History Last Taken Unknown] Lantus U-100 Insulin 40 units OTHER QHS 03/01/21 [History Last Taken Unknown] Novolog Flexpen U-100 Insulin 40 units OTHER TID 03/01/21 [History Last Taken Unknown] Mcdonald 3 Fish Oil 300 mg PO.IVFORM DAILY 03/01/21 [History Last Taken Unknown] lisinopril 40 mg PO DAILY 03/01/21 [History Last Taken Unknown] meloxicam 7.5 mg PO/SL DAILY 03/01/21 [History Last Taken Unknown] metoprolol succinate 25 mg PO DAILY 03/02/21 [History Last Taken Unknown] sucralfate 1 g PO ACHS 03/02/21 [History Last Taken Unknown] Allergy/AdvReac Type Severity Reaction Status Date / Time fexofenadine AdvReac Vomiting Verified 03/01/21 01:12 loratadine AdvReac Rash Verified 03/01/21 01:12 prednisone AdvReac PT UNABLE Verified 03/01/21 01:12 TO RESPOND-NEEDS F/U Sulfa (Sulfonamide AdvReac NEEDS Verified 03/01/21 01:12 Antibiotics) FOLLOW-UP Family History Other Aneurysm Kidney disease Surgical History H/O oophorectomy H/O oophorectomy Hx of tonsillectomy Previous back surgery Social History Smoking Status: Never smoker Physical Exam Narrative Patient is intubated. Not awake alert oriented Head atraumatic normocephalic Neck no JVD. ET tube in place Skin no skin rash. Heart S1-S2 RRR Chest equal air entry clear to auscultation. On vent support 40% FiO2 Abdomen soft nondistended positive bowel sounds. Neurology not awake alert oriented. Og catheter in place Lab / Micro Data Result Diagrams: 03/11/21 03:15 03/11/21 03:15 Labs: Laboratory Results - last 24 hr 03/10/21 04:10: Diff Path Review Reviewed 03/10/21 09:52: POC Glucose 88 03/10/21 13:50: POC Glucose 98 03/10/21 17:27: POC Glucose 106 03/10/21 21:01: POC Glucose 103 03/11/21 01:59: POC Glucose 105 03/11/21 03:15: WBC 51.3 H*, RBC 4.17 L, Hgb 12.5, Hct 39.0, MCV 93.5, MCH 30.0, MCHC 32.1 D, RDW Std Deviation 53.1 H, RDW Coeff of Curt 15.6 H, Plt Count 427, MPV 11.4, Immature Gran % (Auto) 3.000 H, Neut % (Auto) 90.8 H, Lymph % (Auto) 2.4 L, Gray % (Auto) 3.8, Eos % (Auto) 0.0, Baso % (Auto) 0.0, Absolute Neuts (auto) 46.6 H, Absolute Lymphs (auto) 1.23, Nucleated RBC % 0.1, Differential Comment SCANNED, Diff Path Review May 03/11/21 03:15: Sodium 145, Potassium 5.9 H, Chloride 117 H, Carbon Dioxide 25.0, Anion Gap 3 L, BUN 150 H*, Creatinine 2.40 H, Estim Creat Clear Calc 23.04, Est GFR (MDRD) Af Amer 26 L, Est GFR (MDRD) Non-Af 22 L, BUN/Creatinine Ratio 62.5 H, Glucose 131 H, Calcium 8.5, Total Bilirubin 0.40, AST 324 H, ALT 533 H, Alkaline Phosphatase 113, Total Protein 5.4 L, Albumin 1.3 L, Globulin 4.1, Albumin/Globulin Ratio 0.3 L 03/11/21 06:51: POC Glucose 120 H
--- NOTE | 2021-03-11 10:53 | CASEMGMT ---
Social Work Phone call placed to pt PCP office Dr. Al Mejia and inquired of advance directives. They indicate that pt has no living will nor health care POA on file in the PCP office. Phone call to [facility] and spoke with Gail in Case Management who states that there is no living will nor health care POA on file at [facility]. Phone call placed to pt son Faheem and informed him that a phone conference is needed today to discuss his mother's care. Faheem is agreeable and states he can meet at 1200. Phone call placed to pt son Gorge and informed him that a phone conference is needed today to discuss his mother's care and requested a 1200 meeting. Gorge is agreeable. informed both Gorge and Faheem that a return call could be expected at 1200. Dr. Marie and Dr. Molina notified of time of conference call with pt sons to discuss pt care moving forward. ERICKSON Rg
[2021-03-11 10:55] LABS: Bedside Glucose 137 mg/dL (70-110)
--- NOTE | 2021-03-11 13:00 | CASEMGMT ---
Social Work Conference Call with pt sons Kei as well as this SW and Dr. Marie. Pt current medical status explained and care options presented. After much discussion and with sons stating that they are understanding of pt condition and options, Kei are opting for comfort care and extubation and do not wish to visit there mother prior to this happening. With family permission, referral made to [facility] who will meet with pt prior to extubation. ERICKSON Rg
--- NOTE | 2021-03-11 13:00 | NURSING ---
Dr Marie spoke with Patients family, decision made to change code status to DNRCC and terminally extubate patient. Patient was extubated by RT with this RN at bedside and Dr Marie in ICU at 1255. Patient noted to have apneustic respirations but is maintaining SpO2 in mid 80's and RR averaging 8-12. All non-comfort measures discontinued, orders received for palliative medications.
[2021-03-11 13:15] LABS: Pathologist Review Reviewed
--- NOTE | 2021-03-11 13:47 | CHAPLAIN ---
Type of Pastoral Visit ___ Initial Visit ___ Follow-up Visit ___ On-call Visit ___ General Patient Visit ___ Spiritual Assessment ___ Family Conference ___ Bereavement ___ Rapid Response ___ Code Blue _x__ Other (describe below) Pastoral Care Referral From ___ Patient ___ Family _x__ Nurse _x__ Physician _x__ [employer] Lab Technician ___ Addictions Recovery Specialist ___ Other (describe below) Sacrament/Intervention ___ Active listening ___ Anointing ___ Jew ___ Bereavement ___ Communion _x__ Mariah exploration ___ ___ Life review _x__ Prayer ___ Reconciliation ___ Sacrament of Sick _x__ Supportive presence ___ Wedding ___ Other (describe below) Pastoral Comments participated in Ethics review on this patient this morning; after MINDA and consulted with the family there was a request for spiritual care of patient before the extubation; sat at bedside and offered prayers and scriptures to patient before extubation and then was present during extubation; pt tolerated extubation; presence and support will continue as needed
--- NOTE | 2021-03-11 14:07 | PCM.PN.HOSP ---
Subjective Subjective The patient had an ethics committee meeting today. No acute issues overnight. No head or neck tremor or involuntary movement noted. Discussed with the life cycle assessment analyst. Objective Data Objective Data Vital Signs: Vital Signs Temp Pulse Resp BP Pulse Ox 100.2 F H 70 17 130/66 H 92 03/11/21 12:00 03/11/21 12:37 03/11/21 12:37 03/11/21 12:00 03/11/21 12:37 Oxygen Flow Rate (L/min) 2 Oxygen Delivery Method Nasal Cannula Weight: 208 lb 8.917 oz Body Mass Index (BMI) 33.1 Intake & Output: Intake and Output for Last 24 Hours 03/09/21 03/10/21 03/11/21 23:59 23:59 23:59 Intake Total 2086.47 / 2286.47 1457.5 / 1487.5 475.5 / 475.5 Output Total 725 / 975 1460 / 1610 200 / 200 Balance 1361.47 / 1311.47 -2.5 / -122.5 275.5 / 275.5 Lab / Micro Data Result Diagrams: 03/11/21 03:15 03/11/21 03:15 Labs: Laboratory Results - last 24 hr 03/10/21 17:27: POC Glucose 106 03/10/21 21:01: POC Glucose 103 03/11/21 01:59: POC Glucose 105 03/11/21 03:15: WBC 51.3 H*, RBC 4.17 L, Hgb 12.5, Hct 39.0, MCV 93.5, MCH 30.0, MCHC 32.1 D, RDW Std Deviation 53.1 H, RDW Coeff of Curt 15.6 H, Plt Count 427, MPV 11.4, Immature Gran % (Auto) 3.000 H, Neut % (Auto) 90.8 H, Lymph % (Auto) 2.4 L, [place] % (Auto) 3.8, Eos % (Auto) 0.0, Baso % (Auto) 0.0, Absolute Neuts (auto) 46.6 H, Absolute Lymphs (auto) 1.23, Nucleated RBC % 0.1, Differential Comment SCANNED, Diff Path Review Reviewed 03/11/21 03:15: Sodium 145, Potassium 5.9 H, Chloride 117 H, Carbon Dioxide 25.0, Anion Gap 3 L, BUN 150 H*, Creatinine 2.40 H, Estim Creat Clear Calc 23.04, Est GFR (MDRD) Af Amer 26 L, Est GFR (MDRD) Non-Af 22 L, BUN/Creatinine Ratio 62.5 H, Glucose 131 H, Calcium 8.5, Total Bilirubin 0.40, AST 324 H, ALT 533 H, Alkaline Phosphatase 113, Total Protein 5.4 L, Albumin 1.3 L, Globulin 4.1, Albumin/Globulin Ratio 0.3 L 03/11/21 06:51: POC Glucose 120 H 03/11/21 10:51: POC Glucose 137 H Micro: Microbiology 03/03/21 10:50 Sputum, Induced/Lukens Gram Stain - Final 03/03/21 10:50 Sputum, Induced/Lukens Respiratory Culture - Final Staphylococcus aureus 03/01/21 03:50 Urine, Clean Catch Streptococcus pneumoniae Antigen (M - Final 03/01/21 03:50 Urine, Clean Catch Legionella Antigen - Final Physical Exam Narrative General: Intubated on volume control mode. Unconscious, unresponsive. Sedating medications have already been discontinued HEENT: Atraumatic, Normocephalic. Conjunctival edema. Pupils sluggish reactive Oral: ET AND OG tube. Patient has gag reflex. Neck: No change of subcutaneous emphysema. No JVD, Negative Carotid Bruits Lungs: On vent support. Air entry diminished in bilateral lung bases. Cardiovascular: Sinus rhythm, heart rate controlled. Normal S1, Normal S2, No murmurs. Abdomen: Bowel Sounds Present, Soft, Non Tender, Non-Distended : Og catheter. No renal angle tenderness. No suprapubic tenderness. Extremities: Mild ankle edema, Capillary Refill Less than 3 Seconds Skin: No rashes, No breakdown Musculoskeletal: No Tenderness to Palpation of Joints or Extremities Neurological: Twitching/involuntary movement of head and neck seems tremor /dystonia. Cranial nerves II-XII grossly intact, unobtainable Psych/Mental Status: On ventilator Assessment & Plan Assessment/Plan (1) Respiratory failure: QUALIFIERS: Chronicity: acute Respiratory failure complication: hypoxia Qualified Code(s): J96.01 - Acute respiratory failure with hypoxia (2) COVID-19: PLAN: This 60-year-old female with multiple comorbidities admitted with 2-week history of progressive worsening of weakness, shortness of breath, dry cough, postnasal drip. She was found severely hypoxic and tachypneic, in acute hypoxic respiratory failure and was directly admitted from [facility] nonrebreather mask 1. Acute hypoxemic respiratory failure secondary to bilateral COVID-19 pneumonia with pneumomediastinum and subcutaneous emphysema: The patient is unvaccinated. Patient is admitted in ICU. Seen by life cycle assessment analyst. Currently on BiPAP. On Precedex drip as patient was trying to remove BiPAP mask. On Decadron. Not candidate for remdesivir as out of window. Supportive treatment with mucolytic, Pep and bronchodilator. 03/02: Continue BiPAP/AVAPS support. On Precedex drip. 03/03: Patient is intubated because of increased work of breathing, PSVT. Chest x-ray shows pneumomediastinum with subcutaneous emphysema. 03/04: Mechanical ventilator management as per life cycle assessment analyst. Initial preliminary sputum culture shows staph aureus, rare growth. 03/05: Patient remains on high FiO2 requirement with PEEP of 12. 03/06: Patient reports on high FiO2 vent support. Sedatives has been off. Patient is still not waking up. 03/07: On volume control AC mode, respiratory rate 36. Patient not waking up. Airway suctioning done. 03/08: As per nursing staff, family member came yesterday but did not make any change in the CODE STATUS. Patient still has tachycardia, tachypnea on the amiodarone drip and metoprolol 03/09: On empiric Keppra. Gap is decreased with worsening crepitation. On assist control mode. Goal of care discussion with patient's family. 03/10: Ethics committee meeting as family not able to make definitive decision. Patient is on empiric Keppra for twitching of head and neck, concern for seizure. The patient's family wants further to continue aggressive treatment, will need trach and PEG with LTAC referral. 03/11: Ethics committee meeting was done today. After that resume meeting was done by life cycle assessment analyst and patient's 2 son. They decided for palliative comfort care measures. This selected extubation and withdraw care. If patient survives tomorrow, would like hospice services to be involved. Patient is now DNR CC. SOC neurologist was earlier considered but was canceled as family selected palliative comfort care. Right large MCA subacute ischemic stroke with hypertensive emergency: No large vessel occlusion found on CT angiogram. Patient on nicardipine drip. 03/06: Discussed with patient's son yesterday and he understand patient has a large stroke. Still wants full code. 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 Not responsive to adenosine and metoprolol IV. Discussed with the handhole machine operator and advised to control with beta-omar and calcium omar. Patient does not have prior cardiac history. 03/04: Currently heart rhythm is sinus rhythm. Heart rate is controlled. 03/05: On amiodarone drip. Heart rate is controlled. 03/07: Patient had hypotension after dose of Lopressor. Synchronized cardioversion of 50 J was given at 10:10 AM. Currently patient in sinus rhythm. Continue amiodarone. 2. Bilateral COVID-19 pneumonia: As mentioned above 3. Diabetes mellitus: Accu-Cheks insulin coverage block sliding scale. On basal insulin. 03/02: Blood sugar is elevated between 265-308. Insulin dose titrated up 03/03: Glucose about 200. 4. DVT prophylaxis Subcutaneous Lovenox 30 mg twice daily. Poor prognosis Clinical Impression(s) from Imaging Studies Chest X-Ray 03/03/21 05:55 IMPRESSION: Pneumomediastinum. Bilateral pneumonia. Substantial bilateral chest wall emphysema with extension into the neck. Brain CT 03/05/21 04:51 IMPRESSION: Posterior right MCA territory infarct, late acute to subacute. Left mastoid effusion. N.B. : The above Results were Read Back by Ezequiel Russ MD to Chapincito Luna MD, and understanding confirmed on 03/05/2021 05:45:44 (ET). Electronically Signed: Ezequiel Russ MD at 5:49 EDT Tel , Service support , ADDENDUM: 03/05/21 0557 IMPRESSION: Posterior right MCA territory infarct, late acute to subacute. Left mastoid effusion. N.B. : The above Results were Read Back by Ezequiel Russ MD to Chapincito Luna MD, and understanding confirmed on 03/05/2021 05:45:44 (ET). Electronically Signed: Ezequiel Russ MD at 5:49 EDT Tel , Service support , Head/Neck CTA 03/05/21 05:25 IMPRESSION: No stenosis, dissection, or aneurysm. No finding of extravasation into the posterior right MCA infarct. Electronically Signed: Ezequiel Russ MD at 6:06 EDT Tel , Service support , ADDENDUM: 03/05/21 0615 IMPRESSION: No stenosis, dissection, or aneurysm. No finding of extravasation into the posterior right MCA infarct. N.B. : The above Results were Read Back by Ezequiel Russ MD to Benji Esparza RN, and understanding confirmed on 03/05/2021 06:08:23 (ET). Electronically Signed: Ezequiel Russ MD at 6:06 EDT Tel , Service support , Echocardiogram 03/05/21 06:30 Interpretation Summary The estimated ejection fraction is EF 55-60 %. Ordering Physician: Mitchell Galarza Performed By: Cici Horan RDCS, RVT Chest X-Ray 03/06/21 22:25 IMPRESSION: Enteric tube loops over the mid thoracic esophagus and terminates over the gastric fundus with sidehole above the diaphragm. Similar bilateral pulmonary infiltrates. Electronically Signed: Ezequiel Russ MD at 23:38 EDT Tel , Service support , KUB X-Ray 03/07/21 00:32 IMPRESSION: Enteric tube terminates over the distal stomach/duodenal bulb. Electronically Signed: Ezequiel Russ MD at 1:52 EDT Tel , Service support , Charges/Coding Visit Charges Inpatient E&M: 90739 Subs Hosp L3
[2021-03-11] MEDS: Morphine 2 MG/ML Syringe IV (18:27)
[2021-03-11] MEDS: 0.9% Saline Lock 10 ML Syringe IV (18:28)
--- NOTE | 2021-03-11 18:30 | NURSING ---
pt moved to room 205. respirations irregular, periods of apnea up to 60 seconds followed by mulitple gasps. morphine 2 mg iv given for comfort.
[2021-03-11] MEDS: LORazepam 2 MG/ML Syringe IV (18:40)
[2021-03-11] MEDS: Atropine Sulfate 1% 2 ml Bottle 4 DRP PO (18:49)
[2021-03-12] MEDS: Atropine Sulfate 1% 2 ml Bottle 4 DRP PO ×2 (00:37→04:05)
[2021-03-12 04:07] VITALS: PULSE 103; RESP 24; O2SAT 87
[2021-03-12 09:00] VITALS: O2SAT 84
[2021-03-12 09:13] VITALS: BP 123/55; PULSE 95; RESP 21; TEMP 36; O2SAT 84
--- NOTE | 2021-03-12 09:50 | CASEMGMT ---
Addendum entered by Marley Gamble 03/12/21 13:12: SW spoke w/Tigist from [facility], son signed papers, and they will call SW back to let SW know when transport is on the way. BELIA Douglas Addendum entered by Marley Gamble 03/12/21 10:43: SW received message from Tigist at [facility]. Son not willing to come into hospice to sign papers or have papers emailed or faxed, but is agreeable to hospice for pt. Hospice rep is going to [place] where son is to have him sign papers. Once he signs she will let SW know, and if this happens in a timely fashion they can send their own transport to case picker pt. BELIA Douglas Original Note: [facility] called, states that physician spoke w/son and son agreeable to hospice referral. SW faxed over clinical information. SW will continue to follow. BELIA Douglas
--- NOTE | 2021-03-12 11:00 | NURSING ---
recieved update from [facility] hospice clinical supervisor. aware they are someone to have son sign papers. update on condition given
[2021-03-12] MEDS: 0.9% Saline Lock 10 ML Syringe IV (11:48)
[2021-03-12 13:25] VITALS: BP 137/60; PULSE 98; RESP 23; TEMP 36.6; O2SAT 72
--- NOTE | 2021-03-12 13:48 | NURSING ---
report called to hospice
--- NOTE | 2021-03-12 14:04 | NURSING ---
verbal report given to hospice transport.
--- NOTE | 2021-03-12 14:15 | NURSING ---
sandi Mayen called and update given
--- NOTE | 2021-03-12 20:41 | PCM.DC.SUM ---
Providers Date of Admission: 03/01/21 Date of Discharge: 03/12/21 Primary Care Physician: JERZY BEAL Consultations 03/01/21 00:41 Consult: Enrollment Clerk / Pulmonary Medicine Routine Consulting Provider: Yash Marie Reason for Consult: covid pneumonia EMERGENT Consult: No Notified: Yes Date Notified: 03/01/21 Time Notified: 00:41 Method of Notification: Verbal Method of Consult:: In-Person 03/10/21 12:00 Consult: Nephrology Routine Consulting Provider: Nataliya Marcelo Reason for Consult: JORY EMERGENT Consult: No MD Notified: Yes Date Notified: 03/10/21 Time Notified: 14:09 Method of Notification: Page 03/12/21 09:21 Consult: Hospice / Palliative Care Routine Consulting Provider: [facility] Reason for Consult: transfer to hospice care, respiratory failure, stroke, S/P COVID EMERGENT Consult: No MD Notified: Yes Date Notified: 03/12/21 Time Notified: 09:22 Method of Notification: Verbal Reason For Visit: ACUTE HYPOXEMIC RESPIRATORY FAILURE Diagnosis Discharge Diagnosis (1) Respiratory failure: Status: Acute Code(s): J96.90 - Respiratory failure, unspecified, unspecified whether with hypoxia or hypercapnia Qualifiers: Chronicity: acute Respiratory failure complication: hypoxia Qualified Code(s): J96.01 - Acute respiratory failure with hypoxia (2) COVID-19: Status: Acute Code(s): U07.1 - COVID-19 Plan: Final diagnosis: #1 COVID-19 pneumonia #2 acute hypoxic respiratory failure secondary to COVID-19 pneumonia #3 acute stroke and posterior right MCA territory secondary to COVID-19 pneumonia #4 hypertensive emergency #5 pneumomediastinum #6 supraventricular tachycardia #7 type 2 diabetes #8 chronic anxiety #9 essential hypertension #10 acute kidney injury Medications at Discharge Home Medications Acidophilus 1 tablet PO/SL QPM 03/01/21 Lantus U-100 Insulin 40 units OTHER QHS 03/01/21 Novolog Flexpen U-100 Insulin 40 units OTHER TID 03/01/21 [place] 3 Fish Oil 300 mg PO.IVFORM DAILY 03/01/21 lisinopril 40 mg PO DAILY 03/01/21 meloxicam 7.5 mg PO/SL DAILY 03/01/21 metoprolol succinate 25 mg PO DAILY 03/02/21 sucralfate 1 g PO ACHS 03/02/21 Hospital Course Operations None Procedures None Summary of Care Provided Minutes Spent on Discharge: 34 Hospital Course: This 60-year-old white female was directly admitted to [facility] after going to an emergency room in [place] and testing positive for Covid, she required a nonrebreather mask and she was transferred directly to [facility] for further care. On admission, she was on BiPAP, she was admitted to the ICU and seen in consultation by critical care, patient was not a candidate for remdesivir due to her being out of the window for use of this drug. During her time in the hospital, patient required BiPAP and eventually, patient was intubated and had episodes of supraventricular tachycardia which required cardioversion. Patient also sustained an acute stroke in the right MCA territory, she was encephalopathic due to this stroke. Conversations were carried out with the patient's family who ultimately decided that the patient should be extubated and given terminal care, patient however did not pass away after the extubation and palliative care/hospice was brought into talk with the family and the family agreed that the patient could be transferred to inpatient hospice for terminal care. On 03/12/2021, patient was seen and examined: On examination she was comatose, she had periods of apnea, she does not appear to be in any distress. Vital signs as documented. Skin warm and dry and without overt rashes. Neck without JVD, thyroid appears normal, trachea is midline, neck is supple. Lungs clear, normal air movement was noted. Heart exam notable for regular rhythm, normal sounds and absence of murmurs, rubs or gallops. Abdomen unremarkable and without evidence of organomegaly, masses, or abdominal aortic enlargement, bowel sounds are present in all 4 quadrants, no abdominal tenderness was noted. Extremities nonedematous, no cyanosis was noted, no clubbing was noted. Neuro: Cranial nerves II through XII are grossly intact Psych: Patient was comatose and nonresponsive to verbal or painful stimuli On 03/12/2021, patient was transferred to inpatient hospice in terminal condition. Weight / BMI Weight Weight: 94.6 kg Body Mass Index (BMI) 33.1 ABG / Lab / Microbiology Data Result Diagrams: 03/11/21 03:15 03/11/21 03:15 Microbiology: Microbiology 03/03/21 10:50 Sputum, Induced/Lukens Gram Stain - Final 03/03/21 10:50 Sputum, Induced/Lukens Respiratory Culture - Final Staphylococcus aureus 03/01/21 03:50 Urine, Clean Catch Streptococcus pneumoniae Antigen (M - Final 03/01/21 03:50 Urine, Clean Catch Legionella Antigen - Final Meaningful Use Info Meaningful Use Diagnoses (Choose all that apply): Ischemic CVA CVA Therapy Assessed for PT,OT and/or ST?: No Reason therapy not assessed?: Hospice Ischemic Stroke Antithrombotic order at d/c?: No Reason antithrombotic not ordered: Hospice Dx of Atrial fib/flutter?: No Anticoagulant at discharge?: No Reason anticoagulant not ordered: Hospice Statins at discharge?: No Reason Statin not ordered: Hospice Primary Dx Acute Ischemic CVA?: Yes IV tPA ordered during stay?: No Reason IV t-PA not ordered: Medical Contraindication Discharge Plan Admission Admit Date/Time: 03/01/21 00:35 Primary Reason for Your Visit: respiratory failure Attending Provider: Zeeshan Freire Consulting Providers: Yash Marie ; Nataliya Marcelo ; Radha Fowler ; Peter Carrizales ; Margarita Butler ; Tiffanie Esparza ; oXchitl Tavares ; Shruthi Bellamy TRAFFIC MAINTENANCE SUPERVISOR Discharge Orders/Prescriptions Prescriptions: No Action Novolog Flexpen U-100 Insulin 40 units OTHER TID RF: 0 meloxicam 7.5 mg PO/SL DAILY RF: 0 [place] 3 Fish Oil 300 mg PO.IVFORM DAILY RF: 0 Lantus U-100 Insulin 40 units OTHER QHS RF: 0 Acidophilus 1 tablet PO/SL QPM RF: 0 lisinopril 40 mg Tablet 40 mg PO DAILY RF: 0 sucralfate 1 gram Tablet 1 g PO ACHS RF: 0 metoprolol succinate 25 mg Tablet Extended Release 24 Hr 25 mg PO DAILY RF: 0 Referrals / Follow Up: JERZY BEAL [Other] Disposition Discharge Orders: Discharge Patient (Routine); Ordered 03/12/21 Ordered By: Dr. Zeeshan Freire Charges/Coding Visit Charges Inpatient E&M: [id number] Disch Hosp
== END 2021-03-12 14:16 | disposition hospice, inpatient (51) | DRG 207 ==
LOC: ICU 03-11 15:30 → MS2 03-11 18:13
PROVIDERS: Internal Medicine; Internal Medicine Critical Care Medicine; Admitting Provider Hospitalist; Visit Provider Internal Medicine
DX: U07.1 COVID-19 (principal); J96.01 Acute respiratory failure with hypoxia; J12.82 Pneumonia due to coronavirus disease 2019; I63.511 Cerebral infarction due to unspecified occlusion or stenosis of right middle cerebral artery; I16.1 Hypertensive emergency; N17.9 Acute kidney failure, unspecified; I47.1 Supraventricular tachycardia; E87.0 Hyperosmolality and hypernatremia; G93.49 Other encephalopathy; I10 Essential (primary) hypertension; E11.59 Type 2 diabetes mellitus with other circulatory complications; B94.8 Sequelae of other specified infectious and parasitic diseases; M79.7 Fibromyalgia; E11.65 Type 2 diabetes mellitus with hyperglycemia; E66.9 Obesity, unspecified; F41.9 Anxiety disorder, unspecified; G89.29 Other chronic pain; J98.2 Interstitial emphysema; M19.90 Unspecified osteoarthritis, unspecified site; Z79.899 Other long term (current) drug therapy; Z79.4 Long term (current) use of insulin; Z28.3 Underimmunization status; Z68.33 Body mass index [BMI] 33.0-33.9, adult; I95.9 Hypotension, unspecified; E87.8 Other disorders of electrolyte and fluid balance, not elsewhere classified; E11.649 Type 2 diabetes mellitus with hypoglycemia without coma; E87.5 Hyperkalemia
CPT/HCPCS: 31500; 31720; 36569; 36600; 70450; 70496; 70498; 71045; 74018; 76705; 80048; 80053; 82140; 82550; 82803; 82962; 83735; 83880; 84100; 84145; 84443; 84478; 84484; 85025; 87070; 87077; 87186; 87205; 87449; 87641; 92960; 93005; 93306; 94002; 94003; 97162; 97166; 97802; 97803; 99251; J7040; J7050; Q9967; A4216; G0463; J0153; J0330; J1940; J3010